=== PATIENT | male | born 1965 | race Caucasian/White ===

== ENCOUNTER 2021-04-14 15:40 | Outpatient (CLI) | payer SELFPAY ==
[2021-04-14 16:00] VITALS: BP 128/75; PULSE 107; RESP 22; TEMP 38.8; O2SAT 87
--- NOTE | 2021-04-14 16:10 | NURSING ---
[facility] 1555. Pt noted to have O2 sats .86-87% w/ tachypnea. Lungs clear, diminished. Nina Prado NP contacted and updated on O2 sats and told to take pt to ED as he is no longer candidate for infusion. Pt verbalizes understanding.
== END 2021-04-14 16:12 | disposition home or self-care (01) ==
LOC: ICUOUT 15:41 → MS2 15:41
PROVIDERS: Referring Provider Nurse Practitioner Acute Care; Visit Provider Nurse Practitioner Acute Care
DX: Z23 Encounter for immunization (principal); U07.1 COVID-19
CPT/HCPCS: Q0244

== ENCOUNTER 2021-04-14 16:29 | Inpatient (IN) | payer BC, SELFPAY ==
[2021-04-14] VITALS (14 sets, daily range): BP systolic 106–145; BP diastolic 37–96; PULSE 103–110; RESP 16–24; TEMP 36.4–39.1; O2SAT 85–95; BMI 44.0; BMI 44.8
--- NOTE | 2021-04-14 18:13 | EKG12_ITS ---
Test Reason : SOB Blood Pressure : / mmHG Vent. Rate : 104 BPM Atrial Rate : 104 BPM P-R Int : 140 ms QRS Dur : 086 ms QT Int : 318 ms P-R-T Axes : 065 085 041 degrees QTc Int : 418 ms Sinus tachycardia Incomplete right bundle branch block Confirmed by KEL YOON, MONIKA ([id number]), paving rammer JOSE RYDER ([id number]) on 04/16/2021 9:13:13 AM Referred By: NEVA Confirmed By:MONIKA BEGUM MD
--- NOTE | 2021-04-14 18:16 | ED.VIS.DYS ---
HPI History of Present Illness Chief Complaint: Shortness of Breath Informant: patient Narrative Narrative: Patient is a 55-year-old male with history of diabetes mellitus and hypothyroid as well as hyperlipidemia presenting with hypoxia. Patient was diagnosed with COVID-19 infection on 04/10. He started having symptoms on 04/05. He went to receive monoclonal antibody infusion today but was hypoxic so he was sent to the emergency room. Patient continues to have cough and states food all tastes like salt and he is more thirsty. He denies any shortness of breath. He denies any nausea or vomiting. He did not have the Covid vaccine. He is not on any blood thinners. He denies any other complaints at this time. [facility] Medical History (Updated 04/15/21 @ 00:[address] Nila Jeffries DO) Diabetes Hyperlipidemia Hypertension Hypothyroidism Home Medications aspirin 81 mg PO DAILY@0800 01/06/16 [History Last Taken Unknown] levothyroxine 50 mcg PO DAILY 01/06/16 [History Last Taken 04/06/16 05:30 50 MCG] metformin 1,000 mg PO DAILY 01/06/16 [History Last Taken Unknown] metformin 500 mg PO QHS 01/06/16 [History Last Taken Unknown] multivitamin [Daily Multiple Vitamin] 1 ea PO DAILY 01/06/16 [History Last Taken Unknown] pravastatin 40 mg PO DAILY 01/06/16 [History Last Taken Unknown] metoprolol tartrate 50 mg PO BID 04/02/16 [History Last Taken 04/06/16 05:30 50 MG] Allergy/AdvReac Type Severity Reaction Status Date / Time No Known Allergies Allergy Verified 04/14/21 16:34 Family History (Updated 04/14/21 @ 21:56 by Elsie Toure NP-Narda) Other Diabetes Hypertension Surgical History History of coronary artery bypass graft History of tonsillectomy Social History (Updated 04/14/21 @ 21:57 by Elsie Toure NP-C) Smoking Status: Never smoker alcohol intake: never substance use type: does not use ROS ROS ED Constitutional Constitutional ED: Denies chills or fever(s) Eyes Eyes: Denies blurry vision or loss of vision ENT ENT ED: Reports other Details: Change in taste ; Denies rhinorrhea Cardiovascular Cardiovascular: Denies chest pain or dizziness Respiratory/Chest Respiratory/Chest: Reports cough and dyspnea on exertion; Denies dyspnea Gastrointestinal Gastrointestinal: Denies abdominal pain, nausea or vomiting Genitourinary Genitourinary ED: Denies dysuria or hematuria Musculoskeletal Musculoskeletal: Denies arthralgias or myalgias Integumentary Denies rash or wounds Neurologic Neurologic: Denies focal weakness or headache(s) Psychiatric Psychiatric: Denies anxiety or behavioral changes EXAM Physical Exam Const Vital Signs: 04/14/21 16:30 04/14/21 16:34 04/14/21 17:32 Temperature 98.8 F Temperature Source Temporal Pulse Rate 106 H 105 H Respiratory Rate 16 20 H Respiratory Effort Short of Breath Labored Accessory Muscle Use Respiratory Depth Normal Respiratory Pattern Tachypnea Blood Pressure 123/78 H Blood Pressure Mean 93 Pulse Ox 85 94 87 Oxygen Delivery Method Room Air Nasal Cannula Nasal Cannula Oxygen Flow Rate (L/min) 2 2 04/14/21 18:20 04/14/21 20:31 04/14/21 21:35 Temperature 97.6 F L 98.3 F Temperature Source Temporal Temporal Pulse Rate 108 H 104 H Respiratory Rate 20 H 20 H Respiratory Effort Respiratory Depth Respiratory Pattern Blood Pressure 145/88 H 138/84 H Blood Pressure Mean 107 102 Pulse Ox 91 95 90 Oxygen Delivery Method Nasal Cannula Nasal Cannula Nasal Cannula Oxygen Flow Rate (L/min) 6 6 4 04/14/21 21:36 04/14/21 21:38 Temperature Temperature Source Pulse Rate Respiratory Rate Respiratory Effort Respiratory Depth Respiratory Pattern Blood Pressure Blood Pressure Mean Pulse Ox 87 94 Oxygen Delivery Method Nasal Cannula Nasal Cannula Oxygen Flow Rate (L/min) 6 6 Positive well nourished, well developed and obese General Appearance ED: well developed Nutritional Appearance: obese HEENT Reports TM's clear and dry mucous membranes atraumatic Tympanic Membrane ED: Yes TM's clear Mouth ED: Yes dry mucous membranes Mouth: dry mucous membranes Eyes PERRL and EOMs intact bilaterally Neck no lymphadenopathy, supple and no JVD Resp normal respiratory effort Auscultation: diminished lung sounds Cardio regular rate, regular rhythm and no murmurs GI non-tender and non-distended Auscultation: normoactive bowel sounds Palpation: soft Back/Spine normal to inspection Extremity normal to inspection General Extremety ED: Negative for edema or tenderness General Extremity: Negative for edema Neuro oriented x3 and no sensory deficits noted Sensorium / Orientation: alert Motor Exam: Negative for general weakness Psych mental status grossly normal Skin Lesions: no lesions Rashes: no rashes MDM MDM MDM Narrative Medical decision making narrative: Patient evaluated for hypoxia when he was due to receive monoclonal antibody infusion. Patient denies any other significant complaints at this time. He is requiring supplemental oxygen in the ER does have increased O2 demands while in the ER. He is a leukopenia which has been consistent with a viral infection. His D-dimer is elevated and CTA shows no PE but findings consistent with COVID-19 pneumonia. As patient had 2 high oxygen demands to be a candidate for home O2 he will be admitted. Patient is agreeable to this plan of care. He was given first dose of Decadron in the emergency room. Lab Data Attestation: I reviewed the patient's lab results. Labs: Laboratory Results - last 24 hr 04/14/21 04/14/21 04/14/21 17:20 17:20 17:20 WBC 3.8 L RBC 6.14 Hgb 16.6 H Hct 51.4 MCV 83.7 MCH 27.0 MCHC 32.3 RDW Std Deviation 50.0 H RDW Coeff of Renato 17.3 H Plt Count 154 MPV 10.9 Immature Gran % (Auto) 0.300 Neut % (Auto) 75.1 H Lymph % (Auto) 17.2 L Woodward % (Auto) 7.1 Eos % (Auto) 0.0 Baso % (Auto) 0.3 Absolute Neuts (auto) 2.9 Absolute Lymphs (auto) 0.65 L Nucleated RBC % 0 D-Dimer Quant (PE/DVT) 0.82 H* Sodium 134 L Potassium 3.8 Chloride 101 Carbon Dioxide 29.0 Anion Gap 4 L BUN 13 Creatinine 0.94 Estim Creat Clear Calc 91.68 Est GFR (MDRD) Af Amer 107 Est GFR (MDRD) Non-Af 89 BUN/Creatinine Ratio 13.9 Glucose 261 H Lactic Acid Calcium 8.4 L Total Bilirubin 0.50 AST 33 ALT 33 Alkaline Phosphatase 104 Total Protein 7.2 Albumin 2.4 L Globulin 4.8 H Albumin/Globulin Ratio 0.5 L Procalcitonin 04/14/21 04/14/21 17:20 17:20 WBC RBC Hgb Hct MCV MCH MCHC RDW Std Deviation RDW Coeff of Renato Plt Count MPV Immature Gran % (Auto) Neut % (Auto) Lymph % (Auto) Woodward % (Auto) Eos % (Auto) Baso % (Auto) Absolute Neuts (auto) Absolute Lymphs (auto) Nucleated RBC % D-Dimer Quant (PE/DVT) Sodium Potassium Chloride Carbon Dioxide Anion Gap BUN Creatinine Estim Creat Clear Calc Est GFR (MDRD) Af Amer Est GFR (MDRD) Non-Af BUN/Creatinine Ratio Glucose Lactic Acid 1.3 Calcium Total Bilirubin AST ALT Alkaline Phosphatase Total Protein Albumin Globulin Albumin/Globulin Ratio Procalcitonin 0.13 H Radiography Diagnostic Testing: Radiology Impression Chest CTA 04/14/21 18:48 IMPRESSION: 1. No evidence of pulmonary embolus. 2. No aortic dissection or aneurysm. 3. Evidence of CABG procedure without cardiomegaly. 4. Patchy groundglass pulmonary infiltrates consistent with COVID pneumonia. 5. Splenomegaly. 6. LAP-BAND procedure. Electronically Signed: Marcelo Sales DO at 20:13 EDT Tel [phone], Service support , Rhythm Strip Rhythm Strip: Sinus Tach Rate: 104 Ectopy: None EKG Initial EKG: Attestation: I personally reviewed and interpreted this EKG as follows: Interpretation: Sinus Rhythm Comments: Sinus tachycardia rate of 104 Subtle right axis Normal intervals Normal ST segments Discharge Plan Triage Chief Complaint: Shortness of Breath ED Provider: Nila Jeffries Dx/Rx/DC Orders Clinical Impression: COVID-19, Acute respiratory failure with hypoxia Primary Care Provider: Benedict Kamara Disposition Disposition: Acute Care Hospital [facility] Discharge Date/Time: 04/14/21 22:18
[2021-04-14 18:31] LABS: Absolute Lymphocyte Count 0.65 X10^3/uL (0.83-4.51); Absolute Neutrophil Count 2.9 X10^3/uL (2.0-7.7); Basophil# 0.01 X10^3/uL; Basophil% 0.3 % (0-1); Hematocrit 51.4 % (40-54); Hemoglobin 16.6 g/dL (13.0-16.5); Lymphocyte # 0.65 X10^3/ul (0.83-4.51); Lymphocyte % 17.2 % (19-41); Mean Corp Hgb Conc 32.3 g/dL (32-36); Mean Corpuscular Volume 83.7 fL (80-94); Mean Platelet Vol. 10.9 fl (6.2-12.0); Monocyte# 0.27 X10^3/uL; Monocyte% 7.1 % (0-10); NRBC Flagged by Analyzer 0 % (0-5); Neutrophil # 2.85 X10^3/uL (2.7-7.7); Neutrophil % 75.1 % (47-70); Platelet Count 154 K/mm3 (150-450); RBC Distribution Width CV 17.3 % (11.6-14.6); Red Blood Count 6.14 M/mm3 (4.6-6.2); White Blood Count 3.8 K/mm3 (4.4-11.0)
[2021-04-14 18:41] LABS: ALB/GLOB Ratio 0.5 RATIO (0.9-2.4); AST(SGOT) 33 U/L (15-37); Alanine Aminotransfer ALT/SGPT 33 U/L (16-61); Albumin, Serum 2.4 g/dL (3.2-5.0); Alkaline Phosphatase 104 U/L (45-117); Anion Gap 4 (5-15); BUN 13 mg/dL (7-18); BUN/Creat Ratio 13.9 RATIO (10-20); Calcium,Total 8.4 mg/dL (8.5-10.1); Chloride 101 mmol/L (98-107); Creatinine, Serum 0.94 mg/dL (0.70-1.30); EST Glomerular Filtration Rate 89 mL/min (>60); Est Glom Filt Rate - Afr Amer 107 mL/min (>60); Estimated Creatinine Clearance 91.68 ml/min; Globulin 4.8 g/dL (2.2-4.2); Glucose 261 mg/dL (74-106); Potassium 3.8 mmol/L (3.5-5.1); Protein, Total 7.2 g/dL (6.4-8.2); Sodium Level 134 mmol/L (136-145)
[2021-04-14 18:42] LABS: D-Dimer Quantitative (DVT/PE) 0.82 FEU/ug/m (0.27-0.49)
--- NOTE | 2021-04-14 18:48 | CT_ITS ---
STUDY: CTA CHEST REASON FOR EXAM: Male, 55 years old. Hypoxia. Elevated d-dimer. COVID positive. RADIATION DOSAGE (If Supplied By Facility): CTDIvol = ( 29.29 ) mGy, DLP = ( 562.02 ) mGycm TECHNIQUE: The examination was performed with the intravenous administration of IV 100mL Isovue-370. Post-processing of the angiographic images was performed, with multiplanar reformation and 3D reconstruction. Individualized dose optimization techniques were used for this CT. COMPARISON: None. FINDINGS: Normal enhancement of the main pulmonary artery and right and left pulmonary arteries. Normal enhancement of the bilateral peripheral pulmonary arteries. There is no demonstrated pulmonary embolism. Normal thoracic aorta and visualized great vessels. There is no demonstrated aortic dissection. No evidence of CABG procedure. The heart is normal in size. Nonspecific subcentimeter mediastinal lymphadenopathy. Normal hilar regions. Normal visualized trachea and bronchi. The lungs are well expanded. Diffuse groundglass pulmonary infiltrates without consolidation or solid mass. Normal pleura. No evidence of median sternotomy. The chest wall is otherwise unremarkable. Normal osseous structures. Question splenomegaly. There is evidence of a lap band procedure proximal stomach. CT/CTA Chest W/WO Contrast IMPRESSION: 1. No evidence of pulmonary embolus. 2. No aortic dissection or aneurysm. 3. Evidence of CABG procedure without cardiomegaly. 4. Patchy groundglass pulmonary infiltrates consistent with COVID pneumonia. 5. Splenomegaly. 6. LAP-BAND procedure. Electronically Signed: Marcelo Sales DO at 20:13 EDT Tel [phone], Service support ,
[2021-04-14 18:49] LABS: Lactic Acid 1.3 mmol/L (0.4-1.9)
[2021-04-14 19:13] LABS: Procalcitonin 0.13 ng/mL (0.00-0.09)
--- NOTE | 2021-04-14 21:53 | HP.PCM_ITS ---
Documented by User: ADELINE Stanford 04/14/21 22:05 HPI - General General Date of Admission: 04/14/21 Date of Service: 04/14/21 Chief Complaint: Shortness of breath HPI Narrative MONIKA MERLOS, is a 55 M who presents with complaints of shortness of breath. Patient states that he was diagnosed with COVID-19 on 04/10 but with became symptomatic on 04/05. Patient was scheduled to receive monoclonal antibody in fusion earlier today but was sent to the ER for hypoxia. Patient states that he did not receive the Covid vaccine. Patient states that he also has altered taste and everything tastes salty and he has had an increased thirst. Patient denies fever, chills, chest pain, nausea, vomiting. [facility] Medical History (Updated 04/15/21 @ 00:[address] Nila Jeffries, ) Diabetes Hyperlipidemia Hypertension Hypothyroidism Home Medications aspirin 81 mg PO DAILY@0800 01/06/16 [History Last Taken Unknown] levothyroxine 50 mcg PO DAILY 01/06/16 [History Last Taken 04/06/16 05:30 50 MCG] metformin 1,000 mg PO DAILY 01/06/16 [History Last Taken Unknown] metformin 500 mg PO QHS 01/06/16 [History Last Taken Unknown] multivitamin [Daily Multiple Vitamin] 1 ea PO DAILY 01/06/16 [History Last Taken Unknown] pravastatin 40 mg PO DAILY 01/06/16 [History Last Taken Unknown] metoprolol tartrate 50 mg PO BID 04/02/16 [History Last Taken 04/06/16 05:30 50 MG] Allergy/AdvReac Type Severity Reaction Status Date / Time No Known Allergies Allergy Verified 04/14/21 16:34 Family History (Updated 04/14/21 @ 21:56 by ADELINE Stanford) Other Diabetes Hypertension Surgical History History of coronary artery bypass graft History of tonsillectomy Social History (Updated 04/14/21 @ 21:57 by ADELINE Stanford) Smoking Status: Never smoker alcohol intake: never substance use type: does not use ROS Constitutional Constitutional: Denies anorexia, chills, fatigue, fever(s) or weakness ENT HEENT: Reports loss taste/smell Cardiovascular Cardiovascular: Denies chest pain, edema or palpitations Respiratory/Chest Respiratory/Chest: Reports cough, shortness of breath at rest, shortness of breath with exertion, tachypnea and wheezing Gastrointestinal Gastrointestinal: Denies abdominal pain, constipation, diarrhea, nausea or vomiting Genitourinary Genitourinary: Denies dysuria Musculoskeletal Musculoskeletal: Denies back pain, extremity pain, joint pain or joint stiffness Integumentary Integumentary: Denies dry skin Neurologic Neurologic: Denies abnormal gait, abnormal speech, confusion, dizziness or focal weakness Psychiatric Psychiatric: Denies anxiety or depression Endocrine Endocrinology: Denies change in body appearance Hematologic/Lymphatic Hematologic/Lymphatic: Denies anemia, easy bleeding or easy bruising Vital Signs Vital Signs Vital Signs: 04/14/21 16:30 04/14/21 16:34 04/14/21 17:32 Temperature 98.8 F Temperature Source Temporal Pulse Rate 106 H 105 H Respiratory Rate 16 20 H Respiratory Effort Short of Breath Labored Accessory Muscle Use Respiratory Depth Normal Respiratory Pattern Tachypnea Blood Pressure 123/78 H Blood Pressure Mean 93 Pulse Ox 85 94 87 Oxygen Delivery Method Room Air Nasal Cannula Nasal Cannula Oxygen Flow Rate (L/min) 2 2 04/14/21 18:20 04/14/21 20:31 04/14/21 21:35 Temperature 97.6 F L 98.3 F Temperature Source Temporal Temporal Pulse Rate 108 H 104 H Respiratory Rate 20 H 20 H Respiratory Effort Respiratory Depth Respiratory Pattern Blood Pressure 145/88 H 138/84 H Blood Pressure Mean 107 102 Pulse Ox 91 95 90 Oxygen Delivery Method Nasal Cannula Nasal Cannula Nasal Cannula Oxygen Flow Rate (L/min) 6 6 4 04/14/21 21:36 04/14/21 21:38 Temperature Temperature Source Pulse Rate Respiratory Rate Respiratory Effort Respiratory Depth Respiratory Pattern Blood Pressure Blood Pressure Mean Pulse Ox 87 94 Oxygen Delivery Method Nasal Cannula Nasal Cannula Oxygen Flow Rate (L/min) 6 6 Weight Weight: 307 lb Body Mass Index (BMI) 44.0 Physical Exam Const alert, oriented x3 and no apparent distress General Appearance: cooperative HEENT normocephalic and head/scalp atraumatic Eyes conjunctivae normal and no scleral icterus Neck supple and no JVD General: trachea midline Resp Resp Narrative: Patient currently on 6 L nasal cannula oxygen, no oxygen use prior Effort and Inspection: tachypneic Auscultation: wheezes scattered wheezes and diminished lung sounds bilateral throughout Cardio regular rate, regular rhythm, S1 normal heart sound, S2 normal heart sound and peripheral pulses 2+ throughout Rate: tachycardic GI normal to inspection, nondistended, normoactive bowel sounds and soft to palpation Extremity normal capillary refill and no clubbing, cyanosis or edema General Extremity: no tenderness to palpation of joints or extremities Skin General Skin Exam: no breakdown and turgor normal Lesions: no lesions Rashes: no rashes Neuro no focal motor deficits and no sensory deficits noted Speech: speech normal Motor Exam: Negative for general weakness Psych thought process normal, cooperative and affect normal Appearance: appropriate Results Lab / Micro Data Result Diagrams: 04/14/21 17:20 04/14/21 17:20 Labs: Laboratory Results - last 24 hr 04/14/21 17:20: WBC 3.8 L, RBC 6.14, Hgb 16.6 H, Hct 51.4, MCV 83.7, MCH 27.0, MCHC 32.3, RDW Std Deviation 50.0 H, RDW Coeff of Renato 17.3 H, Plt Count 154, MPV 10.9, Immature Gran % (Auto) 0.300, Neut % (Auto) 75.1 H, Lymph % (Auto) 17.2 L, Love % (Auto) 7.1, Eos % (Auto) 0.0, Baso % (Auto) 0.3, Absolute Neuts (auto) 2.9, Absolute Lymphs (auto) 0.65 L, Nucleated RBC % 0 04/14/21 17:20: D-Dimer Quant (PE/DVT) 0.82 H* 04/14/21 17:20: Sodium 134 L, Potassium 3.8, Chloride 101, Carbon Dioxide 29.0, Anion Gap 4 L, BUN 13, Creatinine 0.94, Estim Creat Clear Calc 91.68, Est GFR (MDRD) Af Amer 107, Est GFR (MDRD) Non-Af 89, BUN/Creatinine Ratio 13.9, Glucose 261 H, Calcium 8.4 L, Total Bilirubin 0.50, AST 33, ALT 33, Alkaline Phosphatase 104, Total Protein 7.2, Albumin 2.4 L, Globulin 4.8 H, Albumin/Globulin Ratio 0.5 L 04/14/21 17:20: Lactic Acid 1.3 04/14/21 17:20: Procalcitonin 0.13 H Radiology Impression Chest CTA 04/14/21 18:48 IMPRESSION: 1. No evidence of pulmonary embolus. 2. No aortic dissection or aneurysm. 3. Evidence of CABG procedure without cardiomegaly. 4. Patchy groundglass pulmonary infiltrates consistent with COVID pneumonia. 5. Splenomegaly. 6. LAP-BAND procedure. Electronically Signed: Marcelo Sales DO at 20:13 EDT Tel [phone], Service support , Assessment & Plan Assessment/Plan (1) COVID-19: PLAN: 1. COVID-19 pneumonia -Admit to PCU for cardiac and pulse ox monitoring -Encourage incentive spirometry -CBC and BMP ordered daily -P.o. Decadron ordered 2. Elevated D-dimer -CTA chest completed, negative for PE 3. Hypertension -Vital signs stable -Continue metoprolol -Vital signs per protocol 4. Diabetes mellitus type 2 -Will hold Metformin at this time -AC at bedtime blood sugars with sliding scale insulin ordered -Hypoglycemia protocol ordered 5. Hypothyroidism -Continue levothyroxine DVT prophylaxis-subcu Lovenox This patient was seen by ANNELISE StanfordC under the supervision of Dr. Rehman. Documented by User: Dr. Torsten Rehman MD 04/15/21 04:20 HPI - General General Date of Admission: 04/14/21 [facility] Medical History (Updated 04/15/21 @ 00:[address] Nila Jeffries DO) Diabetes Hyperlipidemia Hypertension Hypothyroidism Home Medications aspirin 81 mg PO DAILY@0800 01/06/16 [History Last Taken Unknown] levothyroxine 50 mcg PO DAILY 01/06/16 [History Last Taken 04/06/16 05:30 50 MCG] metformin 1,000 mg PO DAILY 01/06/16 [History Last Taken Unknown] metformin 500 mg PO QHS 01/06/16 [History Last Taken Unknown] multivitamin [Daily Multiple Vitamin] 1 ea PO DAILY 01/06/16 [History Last Taken Unknown] pravastatin 40 mg PO DAILY 01/06/16 [History Last Taken Unknown] metoprolol tartrate 50 mg PO BID 04/02/16 [History Last Taken 04/06/16 05:30 50 MG] Allergy/AdvReac Type Severity Reaction Status Date / Time No Known Allergies Allergy Verified 04/14/21 16:34 Family History (Updated 04/14/21 @ 21:56 by Elsie Toure NP-C) Other Diabetes Hypertension Surgical History History of coronary artery bypass graft History of tonsillectomy Social History (Updated 04/14/21 @ 21:57 by Elsie Toure NP-C) Smoking Status: Never smoker alcohol intake: never substance use type: does not use Results Lab / Micro Data Result Diagrams: 04/14/21 17:20 04/14/21 17:20 Assessment & Plan Assessment/Plan (1) COVID-19: (2) Acute respiratory failure with hypoxia: Charges/Coding Addendum Addendum: Dr. Rehman: I personally reviewed the chart and examined the patient, and agree with the above findings. 55-year-old male who presents with 10 to 11 days of symptoms consistent with COVID-19. He did test positive and was scheduled to receive the monoclonal antibody today however he was found to be hypoxic and was sent to the ER since he no longer qualified. In the ER he was found to be 87% on room air and initially required 2 L. By the time I evaluated him he was up to needing 5 to 6 L nasal cannula maintaining oxygen saturations. He states that he is u nvaccinated. His and son are both vaccinated and knows his who actually has Covid, and is doing fine, and gave it to him. Also discussed with him for 20 minutes CODE STATUS as well as potential need for intubation if it would arise. And he states that he would like to be full code at this time and if he needs to be intubated he would like to be intubated. He is also going up from remdesivir, will continue with Decadron. CTA of his chest was negative for PEs. Visit Charges Inpatient E&M: 51593 Init Hosp L3 Procedures Hospitalists Procedures: 41405 Advncd Care Plan 30 Min
[2021-04-14] MEDS: dexAMETHasone 4 MG Tablet 6 MG PO (22:03)
--- NOTE | 2021-04-14 22:08 | PCS.PANDOC ---
PANDEMIC DOCUMENTATION INITIATED: Date: 03/23/2021 Time: 190
[2021-04-15] VITALS (13 sets, daily range): BP systolic 102–138; BP diastolic 56–84; PULSE 71–103; RESP 16–18; TEMP 36.6–37.5; O2SAT 89–94
[2021-04-15 00:11] LABS: Bedside Glucose 227 mg/dL (70-110)
[2021-04-15] MEDS: MELATONIN 3 MG TABLET PO (01:19)
[2021-04-15] MEDS: Enoxaparin 40 MG/0.4 ML Syringe SC ×3 (01:19→22:34)
[2021-04-15] MEDS: Insulin NPH Human 100 UNITS/ML PEN 10 UNITS SC ×2 (01:20→22:38)
[2021-04-15] MEDS: Acetaminophen 325 MG Tablet 650 MG PO (01:20)
[2021-04-15 08:01] LABS: Anion Gap 7 (5-15); BUN 18 mg/dL (7-18); BUN/Creat Ratio 16.7 RATIO (10-20); Calcium,Total 8.2 mg/dL (8.5-10.1); Chloride 100 mmol/L (98-107); Creatinine, Serum 1.08 mg/dL (0.70-1.30); EST Glomerular Filtration Rate 75 mL/min (>60); Est Glom Filt Rate - Afr Amer 91 mL/min (>60); Glucose 362 mg/dL (74-106); Potassium 4.4 mmol/L (3.5-5.1); Sodium Level 133 mmol/L (136-145)
[2021-04-15 08:09] LABS: Absolute Lymphocyte Count 0.21 X10^3/uL (0.83-4.51); Hematocrit 52.3 % (40-54); Hemoglobin 16.2 g/dL (13.0-16.5); Lymphocyte # 0.21 X10^3/ul (0.83-4.51); Lymphocyte % 6.3 % (19-41); Mean Corpuscular Hgb 27.2 pg (27.0-32.0); Mean Corpuscular Volume 87.8 fL (80-94); Mean Platelet Vol. 9.9 fl (6.2-12.0); Monocyte# 0.11 X10^3/uL; Monocyte% 3.3 % (0-10); NRBC Flagged by Analyzer 0 % (0-5); Neutrophil # 3.01 X10^3/uL (2.7-7.7); Neutrophil % 89.8 % (47-70); POSITIVE DIFFERENTIAL YES; Platelet Count 135 K/mm3 (150-450); RBC Distribution Width SD 54.1 fl (35.1-43.9); Red Blood Count 5.96 M/mm3 (4.6-6.2); White Blood Count 3.4 K/mm3 (4.4-11.0)
[2021-04-15 08:13] LABS: Differential Indicated SCAN CRITERIA MET
[2021-04-15] MEDS: Aspirin 81 MG TAB.CHEW PO (08:45)
[2021-04-15] MEDS: Metoprolol Tartrate 50 MG Tablet PO ×2 (08:45→22:33)
[2021-04-15] MEDS: Multivitamins,Therapeutic Tablet 1 TABLET PO (08:45)
[2021-04-15] MEDS: dexAMETHasone 2 MG TABLET 6 MG PO (08:45)
[2021-04-15] MEDS: Levothyroxine 50 MCG Tablet PO (08:45)
[2021-04-15] MEDS: Insulin Lispro 100 UNIT/ML INSULN.PEN SC ×5 (08:46→22:38)
[2021-04-15 09:06] LABS: Bedside Glucose 340 mg/dL (70-110)
--- NOTE | 2021-04-15 11:45 | CASEMGMT ---
RN MIGUEL ANGEL Face to Face with patient for initial transition planning/care coordination assessment. RN CM introduced self and role at [facility]. Patient sitting in chair, alert and oriented. Patient willing to participate in assessment and is able to answer all questions appropriately. Care providers, pharmacy, and demographics verified. Patient wishes to discharge home, denies need for home health at this time. Patient states he has no further needs or concerns at this time. CM to follow for discharge planning needs that may arise. PCP: Anh Specialists: none Preferred Pharmacy: [facility] retail at discharge. Insurance: [employer] Prescription Benefit: yes Living Will/HPOA: none LNOK: son, significant other Living Arrangements: Patient lives with significant other and son in a single story home with 2 steps and railing to enter the home. Patient states he is independent at home. Family has been isolating at home, significant other is covid positive. Transportation: self, sig other, son DME/HHC: Patient denies DME or previous HHC. Patient was provided a list of HHC providers consistent with the patient?s preferred geographic region, medical needs, and insurance network. The patient?s preferred provider is [facility]. Will montior for need for home oxygen. Patient states he had his covid testing completed at [facility]. Disposition Plan: Patient to discharge home with family support and follow-up plans in place. Viki TADEO, RN, CM
[2021-04-15 13:31] LABS: Bedside Glucose 499 mg/dL (70-110)
--- NOTE | 2021-04-15 14:07 | PN.HOSP_ITS ---
Subjective Subjective Patient seen and examined. He was admitted with a complaint of shortness of breath. He is being managed for acute hypoxic respiratory failure due to COVID 19 infection; he became symptomatic on 04/05/2021 and diagnosed on 04/10/2021/ He has not received the covid vaccine. Patient seen and examined. He still remains short of breath. He was on 6L of oxygen by nasal canula. Review of systems otherwise negative. Objective Data Objective Data Vital Signs: Vital Signs Temp Pulse Resp BP Pulse Ox 98.4 F 71 16 112/69 94 04/15/21 11:37 04/15/21 11:37 04/15/21 11:37 04/15/21 11:37 04/15/21 11:37 Oxygen Flow Rate (L/min) 6 Oxygen Delivery Method Nasal Cannula Weight: 312 lb 6.32 oz Body Mass Index (BMI) 44.8 Intake & Output: Intake and Output for Last 24 Hours 04/13/21 04/14/21 04/15/21 23:59 23:59 23:59 Intake Total 750 / 750 240 / 240 Output Total 2 / 2 Balance 750 / 750 238 / 238 Lab / Micro Data Result Diagrams: 04/15/21 07:14 04/15/21 07:14 Labs: Laboratory Results - last 24 hr 04/14/21 17:20: WBC 3.8 L, RBC 6.14, Hgb 16.6 H, Hct 51.4, MCV 83.7, MCH 27.0, MCHC 32.3, RDW Std Deviation 50.0 H, RDW Coeff of Renato 17.3 H, Plt Count 154, MPV 10.9, Immature Gran % (Auto) 0.300, Neut % (Auto) 75.1 H, Lymph % (Auto) 17.2 L, [place] % (Auto) 7.1, Eos % (Auto) 0.0, Baso % (Auto) 0.3, Absolute Neuts (auto) 2.9, Absolute Lymphs (auto) 0.65 L, Nucleated RBC % 0 04/14/21 17:20: D-Dimer Quant (PE/DVT) 0.82 H* 04/14/21 17:20: Sodium 134 L, Potassium 3.8, Chloride 101, Carbon Dioxide 29.0, Anion Gap 4 L, BUN 13, Creatinine 0.94, Estim Creat Clear Calc 91.68, Est GFR (MDRD) Af Amer 107, Est GFR (MDRD) Non-Af 89, BUN/Creatinine Ratio 13.9, Glucose 261 H, Calcium 8.4 L, Total Bilirubin 0.50, AST 33, ALT 33, Alkaline Phosphatase 104, Total Protein 7.2, Albumin 2.4 L, Globulin 4.8 H, Albumin/Globulin Ratio 0.5 L 04/14/21 17:20: Lactic Acid 1.3 04/14/21 17:20: Procalcitonin 0.13 H 04/14/21 23:22: POC Glucose 227 H 04/15/21 07:14: WBC 3.4 L, RBC 5.96, Hgb 16.2, Hct 52.3, MCV 87.8, MCH 27.2, MCHC 31.0 L, RDW Std Deviation 54.1 H, RDW Coeff of Renato 17.0 H, Plt Count 135 L, MPV 9.9, Immature Gran % (Auto) 0.600, Neut % (Auto) 89.8 H, Lymph % (Auto) 6.3 L, [place] % (Auto) 3.3, Eos % (Auto) 0.0, Baso % (Auto) 0.0, Absolute Neuts (auto) 3.0, Absolute Lymphs (auto) 0.21 L, Nucleated RBC % 0, Differential Comment COMMENT, Diff Path Review December04/15/21 07:14: Sodium 133 L, Potassium 4.4, Chloride 100, Carbon Dioxide 26.0, Anion Gap 7, BUN 18, Creatinine 1.08, Estim Creat Clear Calc 79.80, Est GFR (MDRD) Af Amer 91, Est GFR (MDRD) Non-Af 75, BUN/Creatinine Ratio 16.7, Glucose 362 H, Calcium 8.2 L 04/15/21 08:26: POC Glucose 340 H 04/15/21 11:40: POC Glucose 499 H* Radiography Diagnostic Testing: Radiology Impression Chest CTA 04/14/21 18:48 IMPRESSION: 1. No evidence of pulmonary embolus. 2. No aortic dissection or aneurysm. 3. Evidence of CABG procedure without cardiomegaly. 4. Patchy groundglass pulmonary infiltrates consistent with COVID pneumonia. 5. Splenomegaly. 6. LAP-BAND procedure. Electronically Signed: Marcelo Sales DO at 20:13 EDT Tel [phone], Service support , Rhythm Strip Rhythm Strip: Sinus Tach Rate: 104 Ectopy: None Physical Exam Const alert, oriented x3 and no apparent distress Exam Limitations: no limitations Nutritional Appearance: morbidly obese HEENT head/scalp atraumatic and moist oral mucous membranes Head and Scalp: normocephalic Eyes EOMs intact bilaterally and conjunctivae normal Neck no lymphadenopathy, supple and no JVD Resp Resp Narrative: diminished breath sounds bibasally, no wheezes or crackles. On 6L of oxygen. Cardio regular rate, regular rhythm, S1 normal heart sound, S2 normal heart sound and no murmurs GI normal to inspection, nondistended, normoactive bowel sounds, soft to palpation, non-tender and non-distended Extremity normal to inspection, full ROM and no clubbing, cyanosis or edema Peripheral Pulses: Yes pulses 2+ throughout Skin no rashes or lesions noted Neuro oriented x3, CN's II-XII intact bilaterally and moves all extremities Sensorium / Orientation: awake and alert Psych affect normal Assessment & Plan Assessment/Plan (1) Acute respiratory failure with hypoxia: (2) COVID-19: PLAN: #Acute hypoxic respiratory failure due to COVID 19 infection * on 6L of oxygen by nasal canula * on decadron and remdesivir * on breathing treatment with bronchodilators * titrate oxygen to maintain sats >90% * #Elevated D dimer: CTA negative for PE. #Hypertension * on metoprolol. IV hydralazine prn * #Diabetes mellitus * metformin on hold. ISS. Accuchecks ACHS * #Hypothyroidism; on synthroid #History of ZOEY * says he has been told he has sleep apnea, but he doesnt use any CPAP * will need to follow up with pulmonology on outpatient basis * DVT prophylaxis: 40mg bid Charges/Coding Visit Charges Inpatient E&M: 85196 [facility] Hosp L3
[2021-04-15 14:45] LABS: Bedside Glucose > 500 mg/dL (70-110)
[2021-04-15 17:01] LABS: Bedside Glucose 388 mg/dL (70-110)
[2021-04-15] MEDS: Pravastatin 40 MG Tablet PO (22:33)
[2021-04-15] MEDS: 0.9% Saline Lock 10 ML Syringe IV (22:43)
[2021-04-15 23:01] LABS: Bedside Glucose 311 mg/dL (70-110)
[2021-04-16] VITALS (14 sets, daily range): BP systolic 96–155; BP diastolic 47–96; PULSE 78–119; RESP 18–20; TEMP 36.8–38.1; O2SAT 90–93
[2021-04-16] MEDS: Levothyroxine 50 MCG Tablet PO (09:24)
[2021-04-16] MEDS: Aspirin 81 MG TAB.CHEW PO (09:24)
[2021-04-16] MEDS: Metoprolol Tartrate 50 MG Tablet PO ×2 (09:24→22:59)
[2021-04-16] MEDS: Multivitamins,Therapeutic Tablet 1 TABLET PO (09:24)
[2021-04-16] MEDS: dexAMETHasone 2 MG TABLET 6 MG PO (09:24)
[2021-04-16] MEDS: Enoxaparin 40 MG/0.4 ML Syringe SC ×2 (09:25→22:59)
[2021-04-16] MEDS: Acetaminophen 325 MG Tablet 650 MG PO ×2 (09:26→23:02)
[2021-04-16] MEDS: Insulin Lispro 100 UNIT/ML INSULN.PEN SC ×4 (09:29→22:59)
[2021-04-16 10:21] LABS: Bedside Glucose 269 mg/dL (70-110)
--- NOTE | 2021-04-16 11:39 | PN.HOSP_ITS ---
Subjective Subjective Patient seen and examined. He had no complaints today and felt his breathing was the same. He was still coughing. Review of systems otherwise negative. I was subsequently informed by the nurse that patient saturation went down to the 80s and he required increasing amounts of oxygen up to 14 L. He was mildly ta chypneic today and also had a fever of 100.5 Fahrenheit. Objective Data Objective Data Vital Signs: Vital Signs Temp Pulse Resp BP Pulse Ox 100.5 F H 102 H 20 H 106/71 91 04/16/21 09:14 04/16/21 09:24 04/16/21 09:14 04/16/21 09:24 04/16/21 09:14 Oxygen Flow Rate (L/min) 12 Oxygen Delivery Method Nasal Cannula Weight: 312 lb 6.32 oz Body Mass Index (BMI) 44.8 Intake & Output: Intake and Output for Last 24 Hours 04/14/21 04/15/21 04/16/21 23:59 23:59 23:59 Intake Total 750 / 750 240 / 240 Output Total 2 / 2 Balance 750 / 750 238 / 238 Lab / Micro Data Result Diagrams: 04/15/21 07:14 04/15/21 07:14 Labs: Laboratory Results - last 24 hr 04/15/21 11:40: POC Glucose 499 H* 04/15/21 13:54: POC Glucose > 500 H* 04/15/21 16:42: POC Glucose 388 H 04/15/21 22:38: POC Glucose 311 H 04/16/21 09:10: POC Glucose 269 H Rhythm Strip Rhythm Strip: Sinus Tach Rate: 104 Ectopy: None Physical Exam Const alert, oriented x3 and no apparent distress General Appearance: cooperative Exam Limitations: no limitations Nutritional Appearance: morbidly obese HEENT normocephalic, head/scalp atraumatic and moist oral mucous membranes Head and Scalp: normocephalic Eyes PERRL, EOMs intact bilaterally, conjunctivae normal and no scleral icterus Neck no lymphadenopathy, supple and no JVD General: trachea midline Resp Resp Narrative: diminished breath sounds bibasally, no wheezes or crackles. On 6L of oxygen, later went up to 12L of oxygen Effort and Inspection: tachypneic Auscultation: wheezes scattered wheezes and diminished lung sounds bilateral throughout Cardio regular rate, regular rhythm, S1 normal heart sound, S2 normal heart sound, no murmurs and peripheral pulses 2+ throughout Rate: tachycardic GI normal to inspection, nondistended, normoactive bowel sounds, soft to palpation, non-tender and non-distended Extremity normal to inspection, full ROM, normal capillary refill and no clubbing, cyano sis or edema General Extremity: no tenderness to palpation of joints or extremities Peripheral Pulses: Yes pulses 2+ throughout Skin no rashes or lesions noted General Skin Exam: no breakdown and turgor normal Lesions: no lesions Rashes: no rashes Neuro oriented x3, CN's II-XII intact bilaterally, moves all extremities, no focal motor deficits and no sensory deficits noted Sensorium / Orientation: awake and alert Speech: speech normal Motor Exam: Negative for general weakness Psych thought process normal, cooperative and affect normal Appearance: appropriate Assessment & Plan Assessment/Plan (1) Acute respiratory failure with hypoxia: (2) COVID-19: PLAN: #Acute hypoxic respiratory failure due to COVID 19 infection * now up to 12L of oxygen today * on decadron and remdesivir * on breathing treatment with bronchodilators * titrate oxygen to maintain sats >90% * check BNP * consult pulmonology. Give a dose of lasix today * #Elevated D dimer: CTA negative for PE. #Hypertension * on metoprolol. IV hydralazine prn * #Diabetes mellitus * metformin on hold. ISS. Accuchecks ACHS * #Hypothyroidism; on synthroid #History of ZOEY * says he has been told he has sleep apnea, but he doesnt use his CPAP machine because he saw commercials on TV that the CPAP machines cause cancer * will need to follow up with pulmonology on outpatient basis * DVT prophylaxis: lovenox sc 40mg bid Charges/Coding Visit Charges Inpatient E&M: 85607 Subs Hosp L3
[2021-04-16] MEDS: Furosemide 40 MG/4 ML Vial IV (12:08)
[2021-04-16] MEDS: 0.9% Saline Lock 10 ML Syringe IV (12:08)
[2021-04-16 12:30] LABS: Bedside Glucose 313 mg/dL (70-110)
[2021-04-16 13:45] LABS: BNP,B-Type NATRIURETIC PEPTIDE 80.7 pg/mL (0-100)
[2021-04-16 16:48] LABS: Pathologist Review Reviewed
[2021-04-16 22:05] LABS: Bedside Glucose 332 mg/dL (70-110)
[2021-04-16] MEDS: Pravastatin 40 MG Tablet PO (22:59)
[2021-04-16] MEDS: Insulin NPH Human 100 UNITS/ML PEN 10 UNITS SC (23:00)
[2021-04-16 23:16] LABS: Bedside Glucose 332 mg/dL (70-110)
--- NOTE | 2021-04-16 23:47 | NURSING ---
girlfriend Kori called and asked for an update. Pt aware and ok with it.
[2021-04-17] VITALS (19 sets, daily range): BP systolic 100–126; BP diastolic 48–83; PULSE 73–104; RESP 16–38; TEMP 36.9–38; O2SAT 84–97
[2021-04-17] MEDS: dexAMETHasone 2 MG TABLET 6 MG PO (08:27)
[2021-04-17] MEDS: Multivitamins,Therapeutic Tablet 1 TABLET PO (08:27)
[2021-04-17] MEDS: Metoprolol Tartrate 50 MG Tablet PO ×2 (08:27→20:17)
[2021-04-17] MEDS: Levothyroxine 50 MCG Tablet PO (08:27)
[2021-04-17] MEDS: Aspirin 81 MG TAB.CHEW PO (08:28)
[2021-04-17] MEDS: Enoxaparin 40 MG/0.4 ML Syringe SC ×2 (08:28→20:16)
[2021-04-17] MEDS: Insulin Lispro 100 UNIT/ML INSULN.PEN SC ×4 (08:28→20:18)
[2021-04-17 08:46] LABS: Bedside Glucose 222 mg/dL (70-110)
[2021-04-17 09:49] LABS: Absolute Lymphocyte Count 0.39 X10^3/uL (0.83-4.51); Absolute Neutrophil Count 9.4 X10^3/uL (2.0-7.7); Basophil# 0.01 X10^3/uL; Basophil% 0.1 % (0-1); Hematocrit 50.8 % (40-54); Hemoglobin 15.9 g/dL (13.0-16.5); Lymphocyte # 0.39 X10^3/ul (0.83-4.51); Lymphocyte % 3.9 % (19-41); Mean Corp Hgb Conc 31.3 g/dL (32-36); Mean Corpuscular Volume 86.2 fL (80-94); Mean Platelet Vol. 9.8 fl (6.2-12.0); Monocyte# 0.23 X10^3/uL; Monocyte% 2.3 % (0-10); NRBC Flagged by Analyzer 0 % (0-5); Neutrophil # 9.43 X10^3/uL (2.7-7.7); Neutrophil % 93.2 % (47-70); POSITIVE DIFFERENTIAL YES; Platelet Count 188 K/mm3 (150-450); RBC Distribution Width CV 16.2 % (11.6-14.6); Red Blood Count 5.89 M/mm3 (4.6-6.2); White Blood Count 10.1 K/mm3 (4.4-11.0)
[2021-04-17 09:59] LABS: Differential Indicated SCAN CRITERIA MET
[2021-04-17 10:09] LABS: ALB/GLOB Ratio 0.4 RATIO (0.9-2.4); AST(SGOT) 33 U/L (15-37); Alanine Aminotransfer ALT/SGPT 23 U/L (16-61); Albumin, Serum 1.9 g/dL (3.2-5.0); Alkaline Phosphatase 80 U/L (45-117); Anion Gap 7 (5-15); BUN 24 mg/dL (7-18); BUN/Creat Ratio 28.3 RATIO (10-20); Calcium,Total 8.6 mg/dL (8.5-10.1); Chloride 98 mmol/L (98-107); Creatinine, Serum 0.85 mg/dL (0.70-1.30); EST Glomerular Filtration Rate 100 mL/min (>60); Est Glom Filt Rate - Afr Amer 121 mL/min (>60); Estimated Creatinine Clearance 101.39 ml/min; Globulin 4.8 g/dL (2.2-4.2); Glucose 228 mg/dL (74-106); Potassium 4.2 mmol/L (3.5-5.1); Protein, Total 6.7 g/dL (6.4-8.2); Sodium Level 135 mmol/L (136-145)
[2021-04-17 10:51] LABS: Platelet Estimate ADEQUATE (ADEQ); Red Cell Morphology NORM C+C NORMAL (NORM C&C)
--- NOTE | 2021-04-17 11:32 | PN.HOSP_ITS ---
Subjective Subjective Patient seen and examined. He feels more short of breath today. He is on 15 L of oxygen. He still coughing but denies any chest pain, palpitations, dizziness, nausea vomiting or diarrhea. Review of systems otherwise negative. Pulmonology consulted. Temperature is 99.7 ?F this morning was 100.4 Fahrenheit earlier in the day. Objective Data Objective Data Vital Signs: Vital Signs Temp Pulse Resp BP Pulse Ox 99.7 F H 80 20 H 109/52 L 97 04/17/21 08:26 04/17/21 08:27 04/17/21 08:26 04/17/21 08:26 04/17/21 08:26 Oxygen Flow Rate (L/min) 15 Oxygen Delivery Method Nasal Cannula Weight: 312 lb 6.32 oz Body Mass Index (BMI) 44.8 Intake & Output: Intake and Output for Last 24 Hours 04/15/21 04/16/21 04/17/21 23:59 23:59 23:59 Intake Total 240 / 240 1695 / 1695 Output Total 2 / 2 1300 / 1300 200 / 200 Balance 238 / 238 395 / 395 -200 / -200 Lab / Micro Data Result Diagrams: 04/17/21 09:35 04/17/21 09:35 Labs: Laboratory Results - last 24 hr 04/15/21 07:14: Diff Path Review Reviewed 04/16/21 12:02: POC Glucose 313 H 04/16/21 13:20: B-Natriuretic Peptide 80.7 04/16/21 16:35: POC Glucose 332 H 04/16/21 22:51: POC Glucose 332 H 04/17/21 08:19: POC Glucose 222 H 04/17/21 09:35: WBC 10.1, RBC 5.89, Hgb 15.9, Hct 50.8, MCV 86.2, MCH 27.0, MCHC 31.3 L, RDW Std Deviation 51.0 H, RDW Coeff of Renato 16.2 H, Plt Count 188, MPV 9.8, Immature Gran % (Auto) 0.500, Neut % (Auto) 93.2 H, Lymph % (Auto) 3.9 L, [place] % (Auto) 2.3, Eos % (Auto) 0.0, Baso % (Auto) 0.1, Absolute Neuts (auto) 9.4 H, Absolute Lymphs (auto) 0.39 L, Nucleated RBC % 0, Differential Comment , Platelet Estimate ADEQUATE, RBC Morphology NORM C+C 04/17/21 09:35: Sodium 135 L, Potassium 4.2, Chloride 98, Carbon Dioxide 30.0, Anion Gap 7, BUN 24 H, Creatinine 0.85, Estim Creat Clear Calc 101.39, Est GFR (MDRD) Af Amer 121, Est GFR (MDRD) Non-Af 100, BUN/Creatinine Ratio 28.3 H, Glucose 228 H, Calcium 8.6, Total Bilirubin 0.50, AST 33, ALT 23, Alkaline Phosphatase 80, Total Protein 6.7, Albumin 1.9 L, Globulin 4.8 H, Albumin/Globulin Ratio 0.4 L Micro: Microbiology 04/14/21 17:20 Blood Culture (Wb) - Anticubital Left Blood Culture - Preliminary No growth in 48 hours. 04/14/21 17:15 Blood Culture (Wb) - Arm Left Blood Culture - Preliminary No growth in 48 hours. Rhythm Strip Rhythm Strip: Sinus Tach Rate: 104 Ectopy: None Physical Exam Const alert, oriented x3 and no apparent distress General Appearance: cooperative Exam Limitations: no limitations Nutritional Appearance: morbidly obese HEENT normocephalic, head/scalp atraumatic and moist oral mucous membranes Head and Scalp: normocephalic Eyes PERRL, EOMs intact bilaterally, conjunctivae normal and no scleral icterus Neck no lymphadenopathy, supple and no JVD General: trachea midline Resp Resp Narrative: diminished breath sounds bibasally, no wheezes or crackles. On 15L of oxygen. Effort and Inspection: tachypneic Auscultation: wheezes scattered wheezes and diminished lung sounds bilateral throughout Cardio regular rate, regular rhythm, S1 normal heart sound, S2 normal heart sound, no murmurs and peripheral pulses 2+ throughout Rate: tachycardic GI normal to inspection, nondistended, normoactive bowel sounds, soft to palpation, non-tender and non-distended Extremity normal to inspection, full ROM, normal capillary refill and no clubbing, cyanosis or edema General Extremity: no tenderness to palpation of joints or extremities Peripheral Pulses: Yes pulses 2+ throughout Skin no rashes or lesions noted General Skin Exam: no breakdown and turgor normal Lesions: no lesions Rashes: no rashes Neuro oriented x3, CN's II-XII intact bilaterally, moves all extremities, no focal motor deficits and no sensory deficits noted Sensorium / Orientation: awake and alert Speech: speech normal Motor Exam: Negative for general weakness Psych thought process normal, cooperative and affect normal Appearance: appropriate Assessment & Plan Assessment/Plan (1) Acute respiratory failure with hypoxia: (2) COVID-19: PLAN: #Acute hypoxic respiratory failure due to COVID 19 infection * now on 15L of oxygen * on decadron; was diagnosed on April 10, and symptoms started at the end of March. * on breathing treatment with bronchodilators * titrate oxygen to maintain sats >90% * BNP was 80.7. Will give another dose of lasix today. * pulmonology consulted. Await rec's. * #Elevated D dimer: CTA negative for PE. #Hypertension * on metoprolol. IV hydralazine prn * #Diabetes mellitus * metformin on hold. ISS. Accuchecks ACHS * #Hypothyroidism; on synthroid #History of ZOEY * says he has been told he has sleep apnea, but he doesnt use his CPAP machine because he saw commercials on TV that the CPAP machines cause cancer * will need to follow up with pulmonology on outpatient basis * DVT prophylaxis: lovenox sc 40mg bid Charges/Coding Visit Charges Inpatient E&M: 95284 Subs Hosp L3
[2021-04-17] MEDS: Furosemide 40 MG/4 ML Vial IV (12:21)
[2021-04-17] MEDS: 0.9% Saline Lock 10 ML Syringe IV (12:21)
[2021-04-17 12:35] LABS: Bedside Glucose 209 mg/dL (70-110)
--- NOTE | 2021-04-17 13:50 | CON.PCM.CC_ITS ---
Assessment & Plan Assessment/Plan (1) Acute respiratory failure with hypoxia: (2) COVID-19: PLAN: RECOMMENDATIONS: 1. Wean supplemental oxygen to maintain saturations at or above 90%. 2. Continue Decadron to complete 10-day treatment course. 3. Continue Lovenox twice daily. 4. Encourage incentive spirometer use and mobilize patient as tolerated. 5. Await prone positioning was encouraged. 6. Consider ID consultation, re: CARLA inhibitor therapy 7. Utilize Lasix as needed to maintain euvolemic state. IMPRESSIONS: 1. Acute hypoxemic respiratory failure secondary to COVID-19 pneumonia The patient presented to the hospital with progressive dyspnea and hypoxemia. His symptoms began at the end of March and the patient subsequently tested positive for Covid on April 10. From my perspective, the patient is currently outside of the window to administer remdesivir. Recommend continuing Decadron to complete 10-day treatment course. In addition, Lovenox twice daily will be continued. Utilize as needed Lasix to maintain euvolemic state. Wean supplemental oxygen to maintain saturations at or above 90%. Encourage incent jose ramon spirometer use and mobilize patient as tolerated. 2. Obesity/hypothyroidism/diabetes mellitus/hyperlipidemia Complicates care, management, recovery and prognosis. Continue home medications as indicated. This note was generated with [employer] dictation software. It may contain incorrect words, spelling, and punctuation that were not noted in checking the note before signing. HPI Consult Data Date of Consult: 04/17/21 HPI Narrative Reason for Consultation: Acute hypoxemic respiratory failure secondary to COVID- 19 pneumonia HPI Narrative: The patient is a 55-year-old male, with a history as outlined below, who presented to the emergency department on April 15 with worsening dyspnea and hypoxemia. He had previously been diagnosed with COVID-19 pneumonia on April 10. His symptoms began at the end of March. The patient was screened for monoclonal therapy but was noted to be hypoxemic and was sent to the emergency department for evaluation. The patient is unvaccinated. He does report sick contact exposure to his , who was previously diagnosed with COVID-19. On presentation to the emergency department, the patient was noted to be afebrile and hemodynamically stable. Initial laboratory evaluation revealed a D-dimer of 0.82. Chemistry profile was largely unremarkable. Lactate was within normal limits. Liver function was within normal limits. Procalcitonin was noted to be 0.13. CTA chest showed no evidence for pulmonary embolism. Diffuse groundglass opacities were noted. The patient was subsequently placed on twice daily Lovenox along with Decadron. He was admitted to the progressive care unit for further management. [facility] Medical History (Updated 04/15/21 @ 00:[address] Nila Jeffries, DO) Diabetes Hyperlipidemia Hypertension Hypothyroidism Home Medications aspirin 81 mg PO DAILY@0800 01/06/16 [History Last Taken Unknown] levothyroxine 50 mcg PO DAILY 01/06/16 [History Last Taken 04/06/16 05:30 50 MCG] metformin 1,000 mg PO DAILY 01/06/16 [History Last Taken Unknown] metformin 500 mg PO QHS 01/06/16 [History Last Taken Unknown] multivitamin [Daily Multiple Vitamin] 1 ea PO DAILY 01/06/16 [History Last Taken Unknown] pravastatin 40 mg PO DAILY 01/06/16 [History Last Taken Unknown] metoprolol tartrate 50 mg PO BID 04/02/16 [History Last Taken 04/06/16 05:30 50 MG] Allergy/AdvReac Type Severity Reaction Status Date / Time No Known Allergies Allergy Verified 04/14/21 16:34 Family History (Updated 04/14/21 @ 21:56 by ADELINE Stanford) Other Diabetes Hypertension Surgical History History of coronary artery bypass graft History of tonsillectomy Social History (Updated 04/14/21 @ 21:57 by Elsie Toure NP-C) Smoking Status: Never smoker alcohol intake: never substance use type: does not use ROS Constitutional Constitutional: Reports fatigue and malaise Eyes Eyes: Denies blurry vision or change in vision ENT HEENT: Denies dizziness, dysphagia, loss taste/smell or nasal discharge Cardiovascular Cardiovascular: Reports dyspnea; Denies chest pain Respiratory/Chest Respiratory/Chest: Reports cough and dyspnea Gastrointestinal Gastrointestinal: Denies abdominal pain, diarrhea, nausea or vomiting Genitourinary Genitourinary: Denies difficulty urinating Musculoskeletal Musculoskeletal: Denies arthralgias, back pain or joint pain Integumentary Integumentary: Denies lesions, rash or skin ulcer Neurologic Neurologic: Denies abnormal gait or abnormal speech Psychiatric Psychiatric: Denies anxiety or depression Endocrine Endocrinology: Denies fatigue Hematologic/Lymphatic Hematologic/Lymphatic: Denies easy bleeding or easy bruising Physical Exam Const alert General Appearance: cooperative and well developed Nutritional Appearance: morbidly obese HEENT normocephalic, head/scalp atraumatic and moist oral mucous membranes Eyes EOMs intact bilaterally and conjunctivae normal Neck supple General: trachea midline Chest inspection of chest normal Resp Effort and Inspection: able to speak in complete sentences Auscultation: diminished lung sounds; Negative for rales, rhonchi or wheezes Cardio regular rate and regular rhythm GI normal to inspection, nondistended, normoactive bowel sounds Extremity no clubbing, cyanosis or edema Skin no rashes or lesions noted Neuro CN's II-XII intact bilaterally and no focal motor deficits Psych cooperative and affect normal Lab / Micro Data Result Diagrams: 04/17/21 09:35 04/17/21 09:35 Labs: Laboratory Results - last 24 hr 04/15/21 07:14: Diff Path Review Reviewed 04/16/21 16:35: POC Glucose 332 H 04/16/21 22:51: POC Glucose 332 H 04/17/21 08:19: POC Glucose 222 H 04/17/21 09:35: WBC 10.1, RBC 5.89, Hgb 15.9, Hct 50.8, MCV 86.2, MCH 27.0, MCHC 31.3 L, RDW Std Deviation 51.0 H, RDW Coeff of Renato 16.2 H, Plt Count 188, MPV 9.8, Immature Gran % (Auto) 0.500, Neut % (Auto) 93.2 H, Lymph % (Auto) 3.9 L, [place] % (Auto) 2.3, Eos % (Auto) 0.0, Baso % (Auto) 0.1, Absolute Neuts (auto) 9.4 H, Absolute Lymphs (auto) 0.39 L, Nucleated RBC % 0, Differential Comment , Platelet Estimate ADEQUATE, RBC Morphology NORM C+C 04/17/21 09:35: Sodium 135 L, Potassium 4.2, Chloride 98, Carbon Dioxide 30.0, Anion Gap 7, BUN 24 H, Creatinine 0.85, Estim Creat Clear Calc 101.39, Est GFR (MDRD) Af Amer 121, Est GFR (MDRD) Non-Af 100, BUN/Creatinine Ratio 28.3 H, Glucose 228 H, Calcium 8.6, Total Bilirubin 0.50, AST 33, ALT 23, Alkaline Phosphatase 80, Total Protein 6.7, Albumin 1.9 L, Globulin 4.8 H, Albumin/Globulin Ratio 0.4 L 04/17/21 12:22: POC Glucose 209 H Micro: Microbiology 04/14/21 17:20 Blood Culture (Wb) - Anticubital Left Blood Culture - Preliminary No growth in 48 hours. 04/14/21 17:15 Blood Culture (Wb) - Arm Left Blood Culture - Preliminary No growth in 48 hours. Rhythm Strip Rhythm Strip: Sinus Tach Rate: 104 Ectopy: None Charges/Coding Visit Charges Inpatient E&M: 19211 Init Hosp L3
--- NOTE | 2021-04-17 14:30 | CON.PCM.ID_ITS ---
Assessment & Plan Assessment/Plan (1) Acute respiratory failure with hypoxia: (2) COVID-19: PLAN: Sx started 04/05/21. Unvaccinated. Family at home also with covid, but vaccinated and improving. On dex, did not qualify for remdesivir due to timing. Plan on 20 days of quarantine. With rapidly worsening hypoxia, will order baricitinib for 14 day course or to stop at time of discharge. Reviewed risk and benefits of EUA with him and he is in agreement. Will follow, thank you, d/w Dr. Mercado and Dr. Finch HPI Consult Data Date of Consult: 04/17/21 HPI Narrative HPI Narrative: MONIKA MERLOS, is a 55 M who presented 04/14 with sx starting 04/05 with cough, SOB, change in taste and smell, congestion, diarrhea. Unvaccinated. and son at home also sick, but vaccinated and improving. Came to ED, with hypoxia, started on dex, not given remdesivir due to timing of symptoms. Now with worsening hypoxia. Pulm consulted, ID consulted. Full ROS performed and neg except as noted above. FORMERLY [facility], [facility] Medical History Diabetes Hyperlipidemia Hypertension Hypothyroidism Home Medications aspirin 81 mg PO DAILY@0800 01/06/16 [History Last Taken Unknown] levothyroxine 50 mcg PO DAILY 01/06/16 [History Last Taken 04/06/16 05:30 50 MCG] metformin 1,000 mg PO DAILY 01/06/16 [History Last Taken Unknown] metformin 500 mg PO QHS 01/06/16 [History Last Taken Unknown] multivitamin [Daily Multiple Vitamin] 1 ea PO DAILY 01/06/16 [History Last Taken Unknown] pravastatin 40 mg PO DAILY 01/06/16 [History Last Taken Unknown] metoprolol tartrate 50 mg PO BID 04/02/16 [History Last Taken 04/06/16 05:30 50 MG] Allergy/AdvReac Type Severity Reaction Status Date / Time No Known Allergies Allergy Verified 04/14/21 16:34 Family History (Updated 04/14/21 @ 21:56 by ANNELISE StanfordC) Other Diabetes Hypertension Surgical History History of coronary artery bypass graft History of tonsillectomy Social History (Updated 04/14/21 @ 21:57 by Elsie Toure [employer] WORKER-C) Smoking Status: Never smoker alcohol intake: never substance use type: does not use Physical Exam Const alert and oriented x3 Constitutional Narrative: ill appearing General Appearance: cooperative Exam Limitations: no limitations HEENT normocephalic and head/scalp atraumatic Eyes PERRL Neck supple and No nodes Resp Auscultation: diminished lung sounds Cardio regular rate and regular rhythm GI normal to inspection, nondistended, normoactive bowel sounds Extremity no clubbing, cyanosis or edema Skin no rashes or lesions noted Neuro CN's II-XII intact bilaterally Lab / Micro Data Result Diagrams: 04/17/21 09:35 04/17/21 09:35 Labs: Laboratory Results - last 24 hr 04/15/21 07:14: Diff Path Review Reviewed 04/16/21 16:35: POC Glucose 332 H 04/16/21 22:51: POC Glucose 332 H 04/17/21 08:19: POC Glucose 222 H 04/17/21 09:35: WBC 10.1, RBC 5.89, Hgb 15.9, Hct 50.8, MCV 86.2, MCH 27.0, MCHC 31.3 L, RDW Std Deviation 51.0 H, RDW Coeff of Renato 16.2 H, Plt Count 188, MPV 9.8, Immature Gran % (Auto) 0.500, Neut % (Auto) 93.2 H, Lymph % (Auto) 3.9 L, [place] % (Auto) 2.3, Eos % (Auto) 0.0, Baso % (Auto) 0.1, Absolute Neuts (auto) 9.4 H, Absolute Lymphs (auto) 0.39 L, Nucleated RBC % 0, Differential Comment , Platelet Estimate ADEQUATE, RBC Morphology NORM C+C 04/17/21 09:35: Sodium 135 L, Potassium 4.2, Chloride 98, Carbon Dioxide 30.0, Anion Gap 7, BUN 24 H, Creatinine 0.85, Estim Creat Clear Calc 101.39, Est GFR (MDRD) Af Amer 121, Est GFR (MDRD) Non-Af 100, BUN/Creatinine Ratio 28.3 H, Glucose 228 H, Calcium 8.6, Total Bilirubin 0.50, AST 33, ALT 23, Alkaline Phosphatase 80, Total Protein 6.7, Albumin 1.9 L, Globulin 4.8 H, Albumin /Globulin Ratio 0.4 L 04/17/21 12:22: POC Glucose 209 H Micro: Microbiology 04/14/21 17:20 Blood Culture (Wb) - Anticubital Left Blood Culture - Preliminary No growth in 48 hours. 04/14/21 17:15 Blood Culture (Wb) - Arm Left Blood Culture - Preliminary No growth in 48 hours. Rhythm Strip Rhythm Strip: Sinus Tach Rate: 104 Ectopy: None
[2021-04-17 18:30] LABS: Bedside Glucose 308 mg/dL (70-110)
[2021-04-17] MEDS: Pravastatin 40 MG Tablet PO (20:17)
[2021-04-17] MEDS: Insulin NPH Human 100 UNITS/ML PEN 10 UNITS SC (20:18)
[2021-04-17 21:06] LABS: Allen Test Positive; Base Excess 6 mmol/L (-2 to +2); Blood Gas Specimen Type ART; FI02 100; O2 Delivery Device BiPAP; PEEP 14; PO2 76 mmHG (75-100); SITE R Radial; SO2 95 % (95-99); Total Carbon Dioxide 31 mmol/L; pCO2 46.5 mmHg (35-45); pH 7.42 (7.35-7.45)
[2021-04-17 21:56] LABS: Bedside Glucose 307 mg/dL (70-110)
[2021-04-18] VITALS (28 sets, daily range): BP systolic 87–128; BP diastolic 48–99; PULSE 68–96; RESP 16–37; TEMP 36.6–36.9; O2SAT 88–98
--- NOTE | 2021-04-18 09:38 | PN.CC_ITS ---
Assessment & Plan Assessment/Plan (1) Acute respiratory failure with hypoxia: (2) COVID-19: PLAN: RECOMMENDATIONS: 1. Continue BiPAP and wean FiO2 as tolerated to maintain saturations at or above 90%. 2. Continue Decadron to complete 10-day treatment course. 3. Continue Lovenox twice daily. 4. Encourage incentive spirometer use and mobilize patient as tolerated. 5. Awake prone positioning was encouraged. 6. Continue baricitinib per ID recommendations. 7. Utilize Lasix as needed to maintain euvolemic state. 8. If the patient continues to decompensate clinically, transfer to ICU level of care. IMPRESSIONS: 1. Acute hypoxemic respiratory failure secondary to COVID-19 pneumonia The patient presented to the hospital with progressive dyspnea and hypoxemia. His symptoms began at the end of March and the patient subsequently tested positive for Covid on April 10. From my perspective, the patient is currently outside of the window to administer remdesivir. Recommend continuing Decadron to complete 10-day treatment course. In addition, Lovenox twice daily will be continued. Utilize as needed Lasix to maintain euvolemic state. Wean oxygen to maintain saturations at or above 90%. Encourage incentive spirometer use and mobilize patient as tolerated. Continue baricitinib per ID recommendations. 2. Obesity/hypothyroidism/diabetes mellitus/hyperlipidemia Complicates care, management, recovery and prognosis. Continue home medications as indicated. This note was generated with [email or web address] dictation software. It may contain incorrect words, spelling, and punctuation that were not noted in checking the note before signing. Subjective Subjective The patient was seen and examined at the bedside this morning. Events from the last 24 hours have been reviewed. The patient is currently afebrile, hemodynamically stable and maintaining appropriate oxygen saturations on BiPAP. The patient is currently documented to be overall net +500 mL for the hospital admission. The patient remains on Decadron, Lovenox and baricitinib. Objective Data Objective Data The patient's most recent lab work, culture data and imaging studies have all been personally reviewed. Blood cultures have demonstrated no growth to date. Vital Signs: Vital Signs Temp Pulse Resp BP Pulse Ox 98.2 F 82 37 H 110/83 H 89 04/18/21 06:24 04/18/21 07:00 04/18/21 06:24 04/18/21 06:24 04/18/21 06:24 Oxygen Flow Rate (L/min) 15 Oxygen Delivery Method Bi-pap Weight: 141.7 kg Body Mass Index (BMI) 44.8 Intake & Output: Intake and Output for Last 24 Hours 04/16/21 04/17/21 04/18/21 23:59 23:59 23:59 Intake Total 1695 / 1695 700 / 700 Output Total 1300 / 1300 800 / 1050 725 / 725 Balance 395 / 395 -100 / -350 -725 / -725 Lab / Micro Data Attestation: I reviewed the patient's lab results. Result Diagrams: 04/17/21 09:35 04/17/21 09:35 Labs: Laboratory Results - last 24 hr 04/17/21 09:35: WBC 10.1, RBC 5.89, Hgb 15.9, Hct 50.8, MCV 86.2, MCH 27.0, MCHC 31.3 L, RDW Std Deviation 51.0 H, RDW Coeff of Renato 16.2 H, Plt Count 188, MPV 9.8, Immature Gran % (Auto) 0.500, Neut % (Auto) 93.2 H, Lymph % (Auto) 3.9 L, [place] % (Auto) 2.3, Eos % (Auto) 0.0, Baso % (Auto) 0.1, Absolute Neuts (auto) 9.4 H, Absolute Lymphs (auto) 0.39 L, Nucleated RBC % 0, Differential Comment , Platelet Estimate ADEQUATE, RBC Morphology NORM C+C 04/17/21 09:35: Sodium 135 L, Potassium 4.2, Chloride 98, Carbon Dioxide 30.0, Anion Gap 7, BUN 24 H, Creatinine 0.85, Estim Creat Clear Calc 101.39, Est GFR (MDRD) Af Amer 121, Est GFR (MDRD) Non-Af 100, BUN/Creatinine Ratio 28.3 H, Glucose 228 H, Calcium 8.6, Total Bilirubin 0.50, AST 33, ALT 23, Alkaline Phosphatase 80, Total Protein 6.7, Albumin 1.9 L, Globulin 4.8 H, Albumin/Globulin Ratio 0.4 L 04/17/21 12:22: POC Glucose 209 H 04/17/21 18:05: POC Glucose 308 H 04/17/21 20:04: POC Glucose 307 H Micro: Microbiology 04/14/21 17:20 Blood Culture (Wb) - Anticubital Left Blood Culture - Preliminary No growth in 48 hours. 04/14/21 17:15 Blood Culture (Wb) - Arm Left Blood Culture - Preliminary No growth in 48 hours. ABG Data ABG results: ABG 04/17/21 20:59 Specimen Type ART Sample Site R Radial pH 7.42 Bicarbonate Actual 30.0 H Total CO2 31 Base Excess 6 H O2 Saturation 95 O2 % 100 ABG pCO2 46.5 H ABG pO2 76 Vasquez Test Positive O2 Delivery Device BiPAP POC PEEP 14 Clinical Comments 18*14 Rhythm Strip Rhythm Strip: Sinus Tach Rate: 104 Ectopy: None Physical Exam Const alert General Appearance: cooperative, well developed and on BiPAP Nutritional Appearance: morbidly obese HEENT normocephalic, head/scalp atraumatic and moist oral mucous membranes Eyes EOMs intact bilaterally and conjunctivae normal Neck supple General: trachea midline Chest inspection of chest normal Resp Effort and Inspection: tachypneic Auscultation: diminished lung sounds; Negative for rales, rhonchi or wheezes Cardio regular rate and regular rhythm GI normal to inspection, nondistended, normoactive bowel sounds Extremity no clubbing, cyanosis or edema Skin no rashes or lesions noted Neuro CN's II-XII intact bilaterally and no focal motor deficits Psych cooperative and affect normal Charges/Coding Visit Charges Inpatient E&M: 61138 Subs Hosp L3
[2021-04-18] MEDS: dexAMETHasone 2 MG TABLET 6 MG PO (10:09)
[2021-04-18] MEDS: Multivitamins,Therapeutic Tablet 1 TABLET PO (10:09)
[2021-04-18] MEDS: Metoprolol Tartrate 50 MG Tablet PO ×2 (10:10→22:12)
[2021-04-18] MEDS: Levothyroxine 50 MCG Tablet PO (10:10)
[2021-04-18] MEDS: Aspirin 81 MG TAB.CHEW PO (10:10)
[2021-04-18] MEDS: Insulin Lispro 100 UNIT/ML INSULN.PEN SC ×3 (10:18→22:13)
[2021-04-18] MEDS: Enoxaparin 40 MG/0.4 ML Syringe SC ×2 (10:19→22:12)
--- NOTE | 2021-04-18 10:34 | PN.HOSP_ITS ---
Subjective Subjective Patient seen and examined. He was on BiPAP at time of review. He wanted to know when he could be taken off for him to eat breakfast. He had no other complaints and review of systems otherwise negative. Objective Data Objective Data Vital Signs: Vital Signs Temp Pulse Resp BP Pulse Ox 98.1 F 82 22 H 128/88 H 98 04/18/21 07:30 04/18/21 10:10 04/18/21 07:30 04/18/21 10:10 04/18/21 07:30 Oxygen Flow Rate (L/min) 15 Oxygen Delivery Method Bi-pap Weight: 312 lb 6.32 oz Body Mass Index (BMI) 44.8 Intake & Output: Intake and Output for Last 24 Hours 04/16/21 04/17/21 04/18/21 23:59 23:59 23:59 Intake Total 1695 / 1695 700 / 700 120 / 120 Output Total 1300 / 1300 800 / 1050 1075 / 1075 Balance 395 / 395 -100 / -350 -955 / -955 Lab / Micro Data Result Diagrams: 04/17/21 09:35 04/17/21 09:35 Labs: Laboratory Results - last 24 hr 04/17/21 09:35: Differential Comment , Platelet Estimate ADEQUATE, RBC Morphology NORM C+C 04/17/21 12:22: POC Glucose 209 H 04/17/21 18:05: POC Glucose 308 H 04/17/21 20:04: POC Glucose 307 H Micro: Microbiology 04/14/21 17:20 Blood Culture (Wb) - Anticubital Left Blood Culture - Preliminary No growth in 48 hours. 04/14/21 17:15 Blood Culture (Wb) - Arm Left Blood Culture - Preliminary No growth in 48 hours. ABG Data ABG results: ABG 04/17/21 20:59 Specimen Type ART Sample Site R Radial pH 7.42 Bicarbonate Actual 30.0 H Total CO2 31 Base Excess 6 H O2 Saturation 95 O2 % 100 ABG pCO2 46.5 H ABG pO2 76 Vasquez Test Positive O2 Delivery Device BiPAP POC PEEP 14 Clinical Comments 18*14 Rhythm Strip Rhythm Strip: Sinus Tach Rate: 104 Ectopy: None Physical Exam Const alert, oriented x3 and no apparent distress General Appearance: cooperative Exam Limitations: no limitations Nutritional Appearance: morbidly obese HEENT normocephalic, head/scalp atraumatic and moist oral mucous membranes Head and Scalp: normocephalic Eyes PERRL, EOMs intact bilaterally, conjunctivae normal and no scleral icterus Neck no lymphadenopathy, supple and no JVD General: trachea midline Resp Resp Narrative: diminished breath sounds bibasally, no wheezes or crackles. On BIPAP Effort and Inspection: tachypneic Auscultation: wheezes scattered wheezes and diminished lung sounds bilateral thr oughout Cardio regular rate, regular rhythm, S1 normal heart sound, S2 normal heart sound, no murmurs and peripheral pulses 2+ throughout Rate: tachycardic GI normal to inspection, nondistended, normoactive bowel sounds, soft to palpation, non-tender and non-distended Extremity normal to inspection, full ROM, normal capillary refill and no clubbing, cyanosis or edema General Extremity: no tenderness to palpation of joints or extremities Peripheral Pulses: Yes pulses 2+ throughout Skin no rashes or lesions noted General Skin Exam: no breakdown and turgor normal Lesions: no lesions Rashes: no rashes Neuro oriented x3, CN's II-XII intact bilaterally, moves all extremities, no focal motor deficits and no sensory deficits noted Sensorium / Orientation: awake and alert Speech: speech normal Motor Exam: Negative for general weakness Psych thought process normal, cooperative and affect normal Appearance: appropriate Assessment & Plan Assessment/Plan (1) Acute respiratory failure with hypoxia: (2) COVID-19: PLAN: #Acute hypoxic respiratory failure due to COVID 19 infection * now on BIPAP this morning * on decadron * pulmonology and ID on board * started on Baricitinib yesterday, for a 14 day course, as ordered per ID * on breathing treatment with bronchodilators * titrate oxygen to maintain sats >90% * * #Elevated D dimer: CTA negative for PE. #Hypertension * on metoprolol. IV hydralazine prn * #Diabetes mellitus * metformin on hold. ISS. Accuchecks ACHS * #Hypothyroidism; on synthroid #History of ZOEY * doesnt use his CPAP machine * to follow up with pulmonology on outpatient basis * DVT prophylaxis: lovenox sc 40mg bid Charges/Coding Visit Charges Inpatient E&M: 70427 Subs Hosp L3
[2021-04-18 10:36] LABS: Bedside Glucose 257 mg/dL (70-110)
[2021-04-18 17:36] LABS: Bedside Glucose 355 mg/dL (70-110)
[2021-04-18] MEDS: Insulin NPH Human 100 UNITS/ML PEN 10 UNITS SC (22:11)
[2021-04-18] MEDS: Acetaminophen 325 MG Tablet 650 MG PO (22:12)
[2021-04-18] MEDS: Pravastatin 40 MG Tablet PO (22:13)
[2021-04-19] VITALS (26 sets, daily range): BP systolic 86–141; BP diastolic 48–96; PULSE 68–89; RESP 16–28; TEMP 36.4–36.6; O2SAT 81–97
[2021-04-19 01:11] LABS: Bedside Glucose 292 mg/dL (70-110)
[2021-04-19 06:56] LABS: Absolute Lymphocyte Count 0.65 X10^3/uL (0.83-4.51); Absolute Neutrophil Count 5.6 X10^3/uL (2.0-7.7); Basophil# 0.01 X10^3/uL; Basophil% 0.2 % (0-1); Hemoglobin 15.6 g/dL (13.0-16.5); Lymphocyte # 0.65 X10^3/ul (0.83-4.51); Lymphocyte % 9.8 % (19-41); Mean Corp Hgb Conc 30.6 g/dL (32-36); Mean Corpuscular Hgb 26.8 pg (27.0-32.0); Mean Corpuscular Volume 87.6 fL (80-94); Mean Platelet Vol. 10.6 fl (6.2-12.0); Monocyte# 0.32 X10^3/uL; Monocyte% 4.8 % (0-10); NRBC Flagged by Analyzer 0 % (0-5); Neutrophil # 5.64 X10^3/uL (2.7-7.7); Neutrophil % 84.6 % (47-70); POSITIVE MORPHOLOGY YES; Platelet Count 255 K/mm3 (150-450); RBC Distribution Width CV 15.9 % (11.6-14.6); RBC Distribution Width SD 50.8 fl (35.1-43.9); Red Blood Count 5.82 M/mm3 (4.6-6.2); White Blood Count 6.7 K/mm3 (4.4-11.0)
[2021-04-19 07:07] LABS: Differential Indicated SCAN CRITERIA MET
[2021-04-19 07:23] LABS: ALB/GLOB Ratio 0.3 RATIO (0.9-2.4); AST(SGOT) 38 U/L (15-37); Alanine Aminotransfer ALT/SGPT 24 U/L (16-61); Albumin, Serum 1.8 g/dL (3.2-5.0); Alkaline Phosphatase 87 U/L (45-117); Anion Gap 3 (5-15); BUN 41 mg/dL (7-18); BUN/Creat Ratio 36.6 RATIO (10-20); Chloride 98 mmol/L (98-107); Creatinine, Serum 1.12 mg/dL (0.70-1.30); EST Glomerular Filtration Rate 72 mL/min (>60); Est Glom Filt Rate - Afr Amer 87 mL/min (>60); Estimated Creatinine Clearance 76.95 ml/min; Globulin 5.3 g/dL (2.2-4.2); Glucose 233 mg/dL (74-106); Potassium 4.4 mmol/L (3.5-5.1); Protein, Total 7.1 g/dL (6.4-8.2); Sodium Level 135 mmol/L (136-145)
[2021-04-19 08:13] LABS: Differential Comment SCANNED
[2021-04-19 09:25] LABS: Reactive Lymphocyte 1+
[2021-04-19] MEDS: Levothyroxine 50 MCG Tablet PO (09:37)
[2021-04-19] MEDS: dexAMETHasone 2 MG TABLET 6 MG PO (09:37)
[2021-04-19] MEDS: Aspirin 81 MG TAB.CHEW PO (09:37)
[2021-04-19] MEDS: Multivitamins,Therapeutic Tablet 1 TABLET PO (09:37)
[2021-04-19] MEDS: Enoxaparin 40 MG/0.4 ML Syringe SC ×2 (09:38→21:19)
[2021-04-19] MEDS: Insulin Lispro 100 UNIT/ML INSULN.PEN SC ×4 (09:38→21:20)
--- NOTE | 2021-04-19 10:08 | PN.HOSP_ITS ---
Subjective Subjective Patient seen and examined. He had no new complaints. He remains on BIPAP and is requiring 95% FiO2. BP was noted to be in the 80s and 90s systolic, so metoprolol is being held. Review of systems is otherwise negative. Objective Data Objective Data Vital Signs: Vital Signs Temp Pulse Resp BP Pulse Ox 97.5 F L 79 28 H 111/85 H 92 04/19/21 09:32 04/19/21 09:32 04/19/21 09:32 04/19/21 09:32 04/19/21 09:32 Oxygen Flow Rate (L/min) 15 Oxygen Delivery Method Bi-pap Weight: 312 lb 6.32 oz Body Mass Index (BMI) 44.8 Intake & Output: Intake and Output for Last 24 Hours 04/17/21 04/18/21 04/19/21 23:59 23:59 23:59 Intake Total 700 / 700 370 / 370 500 / 500 Output Total 800 / 1050 1300 / 1300 500 / 500 Balance -100 / -350 -930 / -930 0 / 0 Lab / Micro Data Result Diagrams: 04/19/21 06:39 04/19/21 06:39 Labs: Laboratory Results - last 24 hr 04/18/21 10:07: POC Glucose 257 H 04/18/21 16:58: POC Glucose 355 H 04/18/21 22:10: POC Glucose 292 H 04/19/21 06:39: WBC 6.7, RBC 5.82, Hgb 15.6, Hct 51.0, MCV 87.6, MCH 26.8 L, M CHC 30.6 L, RDW Std Deviation 50.8 H, RDW Coeff of Renato 15.9 H, Plt Count 255, MPV 10.6, Immature Gran % (Auto) 0.600, Neut % (Auto) 84.6 H, Lymph % (Auto) 9.8 L, [place] % (Auto) 4.8, Eos % (Auto) 0.0, Baso % (Auto) 0.2, Absolute Neuts (auto) 5.6, Absolute Lymphs (auto) 0.65 L, Nucleated RBC % 0, Differential Comment SCANNED, Atypical Lymphocytes KETTLE CHIPPER, Reactive Lymphocytes 1+ 04/19/21 06:39: Sodium 135 L, Potassium 4.4, Chloride 98, Carbon Dioxide 34.0 H, Anion Gap 3 L, BUN 41 H, Creatinine 1.12, Estim Creat Clear Calc 76.95, Est GFR (MDRD) Af Amer 87, Est GFR (MDRD) Non-Af 72, BUN/Creatinine Ratio 36.6 H, Glucose 233 H, Calcium 9.0, Total Bilirubin 0.60, AST 38 H, ALT 24, Alkaline Phosphatase 87, Total Protein 7.1, Albumin 1.8 L, Globulin 5.3 H, Albumin/Globulin Ratio 0.3 L Micro: Microbiology 04/14/21 17:20 Blood Culture (Wb) - Anticubital Left Blood Culture - Preliminary No growth in 48 hours. 04/14/21 17:15 Blood Culture (Wb) - Arm Left Blood Culture - Preliminary No growth in 48 hours. Rhythm Strip Rhythm Strip: Sinus Tach Rate: 104 Ectopy: None Physical Exam Const alert, oriented x3 and no apparent distress General Appearance: cooperative Exam Limitations: no limitations Nutritional Appearance: morbidly obese HEENT normocephalic, head/scalp atraumatic and moist oral mucous membranes Head and Scalp: normocephalic Eyes PERRL, EOMs intact bilaterally, conjunctivae normal and no scleral icterus Neck no lymphadenopathy, supple and no JVD General: trachea midline Resp Resp Narrative: diminished breath sounds bibasally, no wheezes or crackles. On BIPAP with FiO2 95%, tachypneic Effort and Inspection: tachypneic Auscultation: wheezes scattered wheezes and diminished lung sounds bilateral throughout Cardio regular rate, regular rhythm, S1 normal heart sound, S2 normal heart sound, no murmurs and peripheral pulses 2+ throughout Rate: tachycardic GI normal to inspection, nondistended, normoactive bowel sounds, soft to palpation, non-tender and non-distended Extremity normal to inspection, full ROM, normal capillary refill and no clubbing, cyanosis or edema General Extremity: no tenderness to palpation of joints or extremities Peripheral Pulses: Yes pulses 2+ throughout Skin no rashes or lesions noted General Skin Exam: no breakdown and turgor normal Lesions: no lesions Rashes: no rashes Neuro oriented x3, CN's II-XII intact bilaterally, moves all extremities, no focal motor deficits and no sensory deficits noted Sensorium / Orientation: awake and alert Speech: speech normal Motor Exam: Negative for general weakness Psych thought process normal, cooperative and affect normal Appearance: appropriate Assessment & Plan Assessment/Plan (1) Acute respiratory failure with hypoxia: (2) COVID-19: PLAN: #Acute hypoxic respiratory failure due to COVID 19 infection * remains on BIPAP at 95% FiO2 * on decadron * pulmonology and ID on board * on Baricitinib for a 14 day course, as ordered per ID * on breathing treatment with bronchodilators * titrate oxygen to maintain sats >90% * * #Elevated D dimer: CTA negative for PE. #Hypertension * metoprolol held as BP is running in the 90s/ * #Diabetes mellitus * metformin on hold. ISS. Accuchecks ACHS * #Hypothyroidism; on synthroid #History of ZOEY * doesnt use his CPAP machine * to follow up with pulmonology on outpatient basis * DVT prophylaxis: lovenox sc 40mg bid Charges/Coding Visit Charges Inpatient E&M: 79515 Subs Hosp L3
[2021-04-19 11:45] LABS: Bedside Glucose 221 mg/dL (70-110)
[2021-04-19 13:05] LABS: Bedside Glucose 226 mg/dL (70-110)
--- NOTE | 2021-04-19 14:25 | PN.CC_ITS ---
Assessment & Plan Assessment/Plan (1) Acute respiratory failure with hypoxia: (2) COVID-19: PLAN: RECOMMENDATIONS: 1. Continue BiPAP and wean FiO2 as tolerated to maintain saturations at or above 90%. 2. Continue Decadron to complete 10-day treatment course. 3. Continue Lovenox twice daily. 4. Encourage incentive spirometer use and mobilize patient as tolerated. 5. Awake prone positioning was encouraged. 6. Continue baricitinib per ID recommendations. 7. Utilize Lasix as needed to maintain euvolemic state. Hold Lasix today 8. If the patient continues to decompensate clinically, transfer to ICU level of care. 9. Increase Lantus given hyperglycemia IMPRESSIONS: 1. Acute hypoxemic respiratory failure secondary to COVID-19 pneumonia The patient presented to the hospital with progressive dyspnea and hypoxem ia. His symptoms began at the end of March and the patient subsequently tested positive for Covid on April 10. From my perspective, the patient is currently outside of the window to administer remdesivir. Recommend continuing Decadron to complete 10-day treatment course. In addition, Lovenox twice daily will be continued. Utilize as needed Lasix to maintain euvolemic state. Wean oxygen to maintain saturations at or above 90%. Encourage incentive spirometer use and mobilize patient as tolerated. Continue baricitinib per ID recommendations. No indications for cessation on laboratory testing. 2. Obesity/hypothyroidism/diabetes mellitus/hyperlipidemia Complicates care, management, recovery and prognosis. Continue home medications as indicated. Lantus will be increased. This note was generated with [employer] dictation software. It may contain incorrect words, spelling, and punctuation that were not noted in checking the note before signing. Subjective Subjective Patient did okay overnight. Patient's oxygenation was slightly improved this morning on my evaluation. Patient subjectively felt slightly improved compared to yesterday. Patient continued to have a nonproductive cough. Patient was on BiPAP in a lateral decubitus position on my evaluation. Patient does not feel he can prone given his abdominal obesity. Objective Data Objective Data Vital Signs: Vital Signs Temp Pulse Resp BP Pulse Ox 36.4 C L 89 24 H 112/69 92 04/19/21 12:28 04/19/21 13:14 04/19/21 13:14 04/19/21 12:28 04/19/21 13:14 Oxygen Flow Rate (L/min) 15 Oxygen Delivery Method Bi-pap Weight: 141.7 kg Body Mass Index (BMI) 44.8 Intake & Output: Intake and Output for Last 24 Hours 04/17/21 04/18/21 04/19/21 23:59 23:59 23:59 Intake Total 700 / 700 370 / 370 500 / 500 Output Total 800 / 1050 1300 / 1300 800 / 800 Balance -100 / -350 -930 / -930 -300 / -300 Lab / Micro Data Result Diagrams: 04/19/21 06:39 04/19/21 06:39 Labs: Laboratory Results - last 24 hr 04/18/21 16:58: POC Glucose 355 H 04/18/21 22:10: POC Glucose 292 H 04/19/21 06:39: WBC 6.7, RBC 5.82, Hgb 15.6, Hct 51.0, MCV 87.6, MCH 26.8 L, MCHC 30.6 L, RDW Std Deviation 50.8 H, RDW Coeff of Renato 15.9 H, Plt Count 255, MPV 10.6, Immature Gran % (Auto) 0.600, Neut % (Auto) 84.6 H, Lymph % (Auto) 9.8 L, [place] % (Auto) 4.8, Eos % (Auto) 0.0, Baso % (Auto) 0.2, Absolute Neuts (auto) 5.6, Absolute Lymphs (auto) 0.65 L, Nucleated RBC % 0, Differential Comment SCANNED, Atypical Lymphocytes [employer], Reactive Lymphocytes 1+ 04/19/21 06:39: Sodium 135 L, Potassium 4.4, Chloride 98, Carbon Dioxide 34.0 H, Anion Gap 3 L, BUN 41 H, Creatinine 1.12, Estim Creat Clear Calc 76.95, Est GFR (MDRD) Af Amer 87, Est GFR (MDRD) Non-Af 72, BUN/Creatinine Ratio 36.6 H, Glucose 233 H, Calcium 9.0, Total Bilirubin 0.60, AST 38 H, ALT 24, Alkaline Phosphatase 87, Total Protein 7.1, Albumin 1.8 L, Globulin 5.3 H, Albumi n/Globulin Ratio 0.3 L 04/19/21 09:31: POC Glucose 221 H 04/19/21 12:26: POC Glucose 226 H Micro: Microbiology 04/14/21 17:20 Blood Culture (Wb) - Anticubital Left Blood Culture - Preliminary No growth in 48 hours. 04/14/21 17:15 Blood Culture (Wb) - Arm Left Blood Culture - Preliminary No growth in 48 hours. Rhythm Strip Rhythm Strip: Sinus Tach Rate: 104 Ectopy: None Physical Exam Const alert General Appearance: cooperative, well developed and on BiPAP Nutritional Appearance: morbidly obese HEENT normocephalic, head/scalp atraumatic and moist oral mucous membranes Eyes EOMs intact bilaterally and conjunctivae normal Neck supple General: trachea midline Chest inspection of chest normal Chest: symmetrical chest wall rise; Negative for crepitus Resp Effort and Inspection: tachypneic Auscultation: diminished lung sounds; Negative for rales, rhonchi or wheezes Cardio regular rate, regular rhythm, S1 normal heart sound, S2 normal heart sound, no murmurs, no rub and no gallops GI normal to inspection, nondistended, normoactive bowel sounds GI Narrative: Significant abdominal obesity Extremity no clubbing, cyanosis or edema Skin no rashes or lesions noted Neuro CN's II-XII intact bilaterally and no focal motor deficits Psych cooperative and affect normal Charges/Coding Visit Charges Inpatient E&M: 64889 Subs Hosp L3
[2021-04-19] MEDS: Pravastatin 40 MG Tablet PO (21:19)
[2021-04-19] MEDS: Metoprolol Tartrate 50 MG Tablet PO (21:29)
--- NOTE | 2021-04-19 21:41 | NURSING ---
Pt oxygen destating Spo2 85% on continuous bipap adjust on 80% oxygen now 93%, RR-22. Will let respiratory know. Pt denies any SOB, lungs sounds diminished, resting on right side. Will continue to monitor.
[2021-04-19 22:06] LABS: Bedside Glucose 253 mg/dL (70-110)
--- NOTE | 2021-04-19 22:26 | CPS ---
o2 increased to 80% for low sat-per nurse
[2021-04-19 22:41] LABS: Bedside Glucose 229 mg/dL (70-110)
--- NOTE | 2021-04-19 23:43 | NURSING ---
Addendum entered by Jazz Mclaughlin 04/20/21 00:19: Pt destat to 89% on 70% increase bipap oxygen back to 80%. No distress noted will continue to monitor. Spo2 91% at this time will continue to monitor. Original Note: This nurse adjusted patient oxygen on continuos bipap to 70% at this time. Spo2 94% and RR 21 denies any concerns or discomfort. Will continue to monitor.
[2021-04-20] VITALS (26 sets, daily range): BP systolic 103–132; BP diastolic 59–93; PULSE 66–87; RESP 16–32; TEMP 36.4–36.6; O2SAT 87–96
[2021-04-20 08:34] LABS: ALB/GLOB Ratio 0.3 RATIO (0.9-2.4); AST(SGOT) 66 U/L (15-37); Alanine Aminotransfer ALT/SGPT 31 U/L (16-61); Albumin, Serum 1.7 g/dL (3.2-5.0); Alkaline Phosphatase 101 U/L (45-117); Anion Gap 7 (5-15); BUN 30 mg/dL (7-18); BUN/Creat Ratio 40.8 RATIO (10-20); Calcium,Total 8.6 mg/dL (8.5-10.1); Chloride 103 mmol/L (98-107); Creatinine, Serum 0.74 mg/dL (0.70-1.30); EST Glomerular Filtration Rate 117 mL/min (>60); Est Glom Filt Rate - Afr Amer 142 mL/min (>60); Estimated Creatinine Clearance 116.46 ml/min; Globulin 5.2 g/dL (2.2-4.2); Glucose 143 mg/dL (74-106); Potassium 4.9 mmol/L (3.5-5.1); Protein, Total 6.9 g/dL (6.4-8.2); Sodium Level 134 mmol/L (136-145)
[2021-04-20 08:34] LABS: Absolute Lymphocyte Count 0.82 X10^3/uL (0.83-4.51); Basophil# 0.01 X10^3/uL; Basophil% 0.1 % (0-1); Eosinophil# 0.01 X10^3/uL; Eosinophils% 0.1 % (0-5); Hematocrit 53.8 % (40-54); Hemoglobin 16.7 g/dL (13.0-16.5); Lymphocyte # 0.82 X10^3/ul (0.83-4.51); Lymphocyte % 8.9 % (19-41); Mean Corpuscular Hgb 27.2 pg (27.0-32.0); Mean Corpuscular Volume 87.8 fL (80-94); Mean Platelet Vol. 10.6 fl (6.2-12.0); Monocyte# 0.32 X10^3/uL; Monocyte% 3.5 % (0-10); NRBC Flagged by Analyzer 0 % (0-5); Neutrophil # 7.98 X10^3/uL (2.7-7.7); Neutrophil % 86.5 % (47-70); Platelet Count 281 K/mm3 (150-450); RBC Distribution Width CV 15.4 % (11.6-14.6); RBC Distribution Width SD 49.5 fl (35.1-43.9); Red Blood Count 6.13 M/mm3 (4.6-6.2); White Blood Count 9.2 K/mm3 (4.4-11.0)
[2021-04-20] MEDS: dexAMETHasone 2 MG TABLET 6 MG PO (08:57)
[2021-04-20] MEDS: Aspirin 81 MG TAB.CHEW PO (08:57)
[2021-04-20] MEDS: Metoprolol Tartrate 50 MG Tablet PO ×2 (08:57→21:08)
[2021-04-20] MEDS: Levothyroxine 50 MCG Tablet PO (08:58)
[2021-04-20] MEDS: Multivitamins,Therapeutic Tablet 1 TABLET PO (08:58)
[2021-04-20] MEDS: Enoxaparin 40 MG/0.4 ML Syringe SC ×2 (08:59→21:08)
[2021-04-20 10:56] LABS: Bedside Glucose 153 mg/dL (70-110)
[2021-04-20 12:11] LABS: Bedside Glucose 236 mg/dL (70-110)
--- NOTE | 2021-04-20 13:51 | PN.CC_ITS ---
Assessment & Plan Assessment/Plan (1) Acute respiratory failure with hypoxia: (2) COVID-19: PLAN: RECOMMENDATIONS: 1. Continue BiPAP and wean FiO2 as tolerated to maintain saturations at or above 90%. 2. Continue Decadron to complete 10-day treatment course. 3. Continue Lovenox twice daily. 4. Encourage incentive spirometer use and mobilize patient as tolerated. 5. Awake prone positioning was encouraged. 6. Continue baricitinib per ID recommendations. 7. Utilize Lasix as needed to maintain euvolemic state. Dose Lasix today 8. Consider control transfer to the intensive care unit IMPRESSIONS: 1. Acute hypoxemic respiratory failure secondary to COVID-19 pneumonia The patient presented to the hospital with progressive dyspnea and hypoxemia. His symptoms began at the end of March and the patient subsequently tested positive for Covid on April 10. From my perspective, the patient is currently outside of the window to administer remdesivir. Recommend continuing Decadron to complete 10-day treatment course. In addition, Lovenox twice daily will be continued. Utilize as needed Lasix to maintain euvolemic state. Wean oxygen to maintain saturations at or above 90%. Encourage incentive spirometer use and mobilize patient as tolerated. Continue baricitinib per ID recommendations. No indications for cessation of medications based on laboratory testing. Patient has been on BiPAP for 3 days with little tolerance for breaks. Consider transfer to the intensive care unit as intubation may be required. Initial infectious work-up has been unremarkable for superinfection with bacteria. 2. Obesity/hypothyroidism/diabetes mellitus/hyperlipidemia Complicates care, management, recovery and prognosis. Continue home medications as indicated. Lantus will be increased. This note was generated with [employer] dictation software. It may contain incorrect words, spelling, and punctuation that were not noted in checking the note before signing. Subjective Subjective Patient did okay overnight. Patient remains on BiPAP therapy. Patient is not reporting any significant breaks. Patient subjectively feels unchanged compared to previous. Patient does not report being out of bed for significant time since yesterday. Objective Data Objective Data Vital Signs: Vital Signs Temp Pulse Resp BP Pulse Ox 36.6 C 79 32 H 103/60 92 04/20/21 08:40 04/20/21 13:25 04/20/21 13:25 04/20/21 08:40 04/20/21 13:25 Oxygen Flow Rate (L/min) 15 Oxygen Delivery Method Bi-pap Weight: 141.7 kg Body Mass Index (BMI) 44.8 Intake & Output: Intake and Output for Last 24 Hours 04/18/21 04/19/21 04/20/21 23:59 23:59 23:59 Intake Total 370 / 370 500 / 500 Output Total 1300 / 1300 2250 / 2250 475 / 475 Balance -930 / -930 -1750 / -1750 -475 / -475 Lab / Micro Data Result Diagrams: 04/20/21 08:08 04/20/21 07:25 Labs: Laboratory Results - last 24 hr 04/19/21 17:15: POC Glucose 253 H 04/19/21 21:19: POC Glucose 229 H 04/20/21 07:25: Sodium 134 L, Potassium 4.9, Chloride 103, Carbon Dioxide 24.0, Anion Gap 7, BUN 30 H, Creatinine 0.74, Estim Creat Clear Calc 116.46, Est GFR (MDRD) Af Amer 142, Est GFR (MDRD) Non-Af 117, BUN/Creatinine Ratio 40.8 H, Glucose 143 H, Calcium 8.6, Total Bilirubin 0.70, AST 66 H, ALT 31, Alkaline Phosphatase 101, Total Protein 6.9, Albumin 1.7 L, Globulin 5.2 H, Albumin/Globulin Ratio 0.3 L 04/20/21 08:08: WBC 9.2, RBC 6.13, Hgb 16.7 H, Hct 53.8, MCV 87.8, MCH 27.2, MCHC 31.0 L, RDW Std Deviation 49.5 H, RDW Coeff of Renato 15.4 H, Plt Count 281, MPV 10.6, Immature Gran % (Auto) 0.900, Neut % (Auto) 86.5 H, Lymph % (Auto) 8.9 L, Iron % (Auto) 3.5, Eos % (Auto) 0.1, Baso % (Auto) 0.1, Absolute Neuts (auto) 8.0 H, Absolute Lymphs (auto) 0.82 L, Nucleated RBC % 0 04/20/21 08:52: POC Glucose 153 H 04/20/21 12:06: POC Glucose 236 H Micro: Microbiology 04/14/21 17:20 Blood Culture (Wb) - Anticubital Left Blood Culture - Final No growth in 5 days. 04/14/21 17:15 Blood Culture (Wb) - Arm Left Blood Culture - Final No growth in 5 days. Rhythm Strip Rhythm Strip: Sinus Tach Rate: 104 Ectopy: None Physical Exam Const alert General Appearance: cooperative, well developed and on BiPAP Nutritional Appearance: morbidly obese HEENT normocephalic, head/scalp atraumatic and moist oral mucous membranes Eyes EOMs intact bilaterally and conjunctivae normal Neck supple General: trachea midline Chest inspection of chest normal Chest: symmetrical chest wall rise; Negative for crepitus Resp Effort and Inspection: tachypneic Auscultation: diminished lung sounds; Negative for rales, rhonchi or wheezes Cardio regular rate, regular rhythm, S1 normal heart sound, S2 normal heart sound, no murmurs, no rub and no gallops GI normal to inspection, nondistended, normoactive bowel sounds GI Narrative: Significant abdominal obesity Extremity no clubbing, cyanosis or edema Skin no rashes or lesions noted Neuro CN's II-XII intact bilaterally and no focal motor deficits Psych cooperative and affect normal Charges/Coding Visit Charges Inpatient E&M: 56429 Subs Hosp L3
--- NOTE | 2021-04-20 15:22 | PCM.PN.ID ---
Physical Exam Narrative Feeling a little better, no sputum, no n/v/d. Const alert General Appearance: cooperative Resp clear to auscultation bilaterally Auscultation: diminished lung sounds Cardio regular rate and regular rhythm GI normal to inspection, nondistended, normoactive bowel sounds ID ID: Route of nutrition/ use of supplements: [] Nutritional Intake: [] IV Site: [] Briseno Catheter: [] Assessment & Plan Assessment/Plan (1) Acute respiratory failure with hypoxia: (2) COVID-19: PLAN: Sx started 04/05/21. Unvaccinated. Family at home also with covid, but vaccinated and improving. On dex, did not qualify for remdesivir due to timing. Plan on 20 days of quarantine. With rapidly worsening hypoxia, started baricitinib for 14 day course or to stop at time of discharge. Will follow
[2021-04-20 17:40] LABS: Bedside Glucose 285 mg/dL (70-110)
--- NOTE | 2021-04-20 18:12 | PN.HOSP_ITS ---
Subjective Subjective Tolerating BiPAP, but does not feeling short of breath. Objective Data Objective Data Vital Signs: Vital Signs Temp Pulse Resp BP Pulse Ox 36.6 C 81 24 H 110/61 93 04/20/21 14:00 04/20/21 15:52 04/20/21 15:52 04/20/21 14:00 04/20/21 15:52 Oxygen Flow Rate (L/min) 15 Oxygen Delivery Method Bi-pap Weight: 141.7 kg Body Mass Index (BMI) 44.8 Intake & Output: Intake and Output for Last 24 Hours 04/18/21 04/19/21 04/20/21 23:59 23:59 23:59 Intake Total 370 / 370 500 / 500 Output Total 1300 / 1300 2250 / 2250 475 / 475 Balance -930 / -930 -1750 / -1750 -475 / -475 Lab / Micro Data Result Diagrams: 04/20/21 08:08 04/20/21 07:25 Labs: Laboratory Results - last 24 hr 04/19/21 17:15: POC Glucose 253 H 04/19/21 21:19: POC Glucose 229 H 04/20/21 07:25: Sodium 134 L, Potassium 4.9, Chloride 103, Carbon Dioxide 24.0, Anion Gap 7, BUN 30 H, Creatinine 0.74, Estim Creat Clear Calc 116.46, Est GFR (MDRD) Af Amer 142, Est GFR (MDRD) Non-Af 117, BUN/Creatinine Ratio 40.8 H, Glucose 143 H, Calcium 8.6, Total Bilirubin 0.70, AST 66 H, ALT 31, Alkaline Phosphatase 101, Total Protein 6.9, Albumin 1.7 L, Globulin 5.2 H, Album in/Globulin Ratio 0.3 L 04/20/21 08:08: WBC 9.2, RBC 6.13, Hgb 16.7 H, Hct 53.8, MCV 87.8, MCH 27.2, MCHC 31.0 L, RDW Std Deviation 49.5 H, RDW Coeff of Renato 15.4 H, Plt Count 281, MPV 10.6, Immature Gran % (Auto) 0.900, Neut % (Auto) 86.5 H, Lymph % (Auto) 8.9 L, [place] % (Auto) 3.5, Eos % (Auto) 0.1, Baso % (Auto) 0.1, Absolute Neuts (auto) 8.0 H, Absolute Lymphs (auto) 0.82 L, Nucleated RBC % 0 04/20/21 08:52: POC Glucose 153 H 04/20/21 12:06: POC Glucose 236 H 04/20/21 17:33: POC Glucose 285 H Micro: Microbiology 04/14/21 17:20 Blood Culture (Wb) - Anticubital Left Blood Culture - Final No growth in 5 days. 04/14/21 17:15 Blood Culture (Wb) - Arm Left Blood Culture - Final No growth in 5 days. Rhythm Strip Rhythm Strip: Sinus Tach Rate: 104 Ectopy: None Physical Exam Const alert Constitutional Narrative: lying on right side on BiPAP Resp Resp Narrative: coarse breath sounds bilaterally. Cardio regular rate, regular rhythm, S1 normal heart sound and S2 normal heart sound GI normal to inspection, nondistended, normoactive bowel sounds, soft to palpation, non-tender and non-distended GI Narrative: obese Extremity normal to inspection and no clubbing, cyanosis or edema Skin no rashes or lesions noted Assessment & Plan Assessment/Plan (1) Acute respiratory failure with hypoxia: (2) COVID-19: PLAN: #Acute hypoxic respiratory failure due to COVID 19 infection * remains on BIPAP at 75% FiO2 * on decadron * pulmonology and ID on board * on Baricitinib for a 14 day course, as ordered per ID, started on 04/17 and did continue through the . Of note, does not show on the physician MAR. * on breathing treatment with bronchodilators * titrate oxygen to maintain sats >90% * Onset of symptoms on April 05. * Patient is unvaccinated #Elevated D dimer: CTA negative for PE. #Hypertension * metoprolol held as BP is running in the 90s/ #Diabetes mellitus * metformin on hold. ISS. Accuchecks ACHS #Hypothyroidism; on synthroid #History of ZOEY * doesnt use his CPAP machine * to follow up with pulmonology on outpatient basis DVT prophylaxis: lovenox sc 40mg bid Prognosis: Guarded CODE STATUS: Addressed with the patient. Patient wishes to be full CODE STATUS. Order placed. Charges/Coding Visit Charges Inpatient E&M: 38145 Subs Hosp L2
[2021-04-20] MEDS: Pravastatin 40 MG Tablet PO (21:08)
[2021-04-20 21:46] LABS: Bedside Glucose 243 mg/dL (70-110)
[2021-04-21] VITALS (31 sets, daily range): BP systolic 87–127; BP diastolic 60–97; PULSE 71–107; RESP 11–30; TEMP 36.4–37.4; O2SAT 58–96
[2021-04-21 06:47] LABS: Absolute Lymphocyte Count 0.45 X10^3/uL (0.83-4.51); Absolute Neutrophil Count 9.1 X10^3/uL (2.0-7.7); Basophil# 0.01 X10^3/uL; Basophil% 0.1 % (0-1); Eosinophil# 0.08 X10^3/uL; Eosinophils% 0.8 % (0-5); Hemoglobin 17.4 g/dL (13.0-16.5); Lymphocyte # 0.45 X10^3/ul (0.83-4.51); Lymphocyte % 4.6 % (19-41); Mean Corp Hgb Conc 30.6 g/dL (32-36); Mean Corpuscular Hgb 26.8 pg (27.0-32.0); Mean Corpuscular Volume 87.5 fL (80-94); Mean Platelet Vol. 10.3 fl (6.2-12.0); Monocyte# 0.16 X10^3/uL; Monocyte% 1.6 % (0-10); NRBC Flagged by Analyzer 0 % (0-5); Neutrophil # 9.07 X10^3/uL (2.7-7.7); Neutrophil % 92.3 % (47-70); POSITIVE DIFFERENTIAL YES; Platelet Count 331 K/mm3 (150-450); RBC Distribution Width CV 15.5 % (11.6-14.6); RBC Distribution Width SD 48.9 fl (35.1-43.9); Red Blood Count 6.49 M/mm3 (4.6-6.2); White Blood Count 9.8 K/mm3 (4.4-11.0)
[2021-04-21 07:19] LABS: Differential Indicated SCAN CRITERIA MET; Hematocrit 56.8 % (40-54)
[2021-04-21 07:27] LABS: ALB/GLOB Ratio 0.4 RATIO (0.9-2.4); AST(SGOT) 47 U/L (15-37); Alanine Aminotransfer ALT/SGPT 36 U/L (16-61); Albumin, Serum 2.1 g/dL (3.2-5.0); Alkaline Phosphatase 109 U/L (45-117); Anion Gap 4 (5-15); BUN 23 mg/dL (7-18); BUN/Creat Ratio 22.5 RATIO (10-20); Calcium,Total 9.1 mg/dL (8.5-10.1); Chloride 100 mmol/L (98-107); Creatinine, Serum 1.02 mg/dL (0.70-1.30); EST Glomerular Filtration Rate 80 mL/min (>60); Est Glom Filt Rate - Afr Amer 97 mL/min (>60); Estimated Creatinine Clearance 84.49 ml/min; Glucose 174 mg/dL (74-106); Potassium 4.4 mmol/L (3.5-5.1); Protein, Total 7.1 g/dL (6.4-8.2); Sodium Level 138 mmol/L (136-145)
[2021-04-21] MEDS: Enoxaparin 40 MG/0.4 ML Syringe SC ×2 (10:43→21:14)
[2021-04-21] MEDS: Multivitamins,Therapeutic Tablet 1 TABLET PO (10:44)
[2021-04-21] MEDS: Levothyroxine 50 MCG Tablet PO (10:44)
[2021-04-21] MEDS: dexAMETHasone 2 MG TABLET 6 MG PO (10:44)
[2021-04-21] MEDS: Aspirin 81 MG TAB.CHEW PO (10:44)
[2021-04-21] MEDS: Metoprolol Tartrate 50 MG Tablet PO (10:45)
[2021-04-21 11:11] LABS: Bedside Glucose 229 mg/dL (70-110)
--- NOTE | 2021-04-21 12:37 | PN.HOSP_ITS ---
Subjective Subjective increased FiO2 overnight with BiPAP. Objective Data Objective Data Vital Signs: Vital Signs Temp Pulse Resp BP Pulse Ox 36.6 C 107 H 20 H 120/66 92 04/21/21 10:49 04/21/21 10:49 04/21/21 10:49 04/21/21 10:49 04/21/21 10:49 Oxygen Flow Rate (L/min) 15 Oxygen Delivery Method Bi-pap Weight: 141.7 kg Body Mass Index (BMI) 44.8 Intake & Output: Intake and Output for Last 24 Hours 04/19/21 04/20/21 04/21/21 23:59 23:59 23:59 Intake Total 500 / 500 120 / 120 Output Total 2250 / 2250 475 / 775 700 / 700 Balance -1750 / -1750 -475 / -655 -580 / -580 Lab / Micro Data Result Diagrams: 04/21/21 06:40 04/21/21 06:40 Labs: Laboratory Results - last 24 hr 04/20/21 17:33: POC Glucose 285 H 04/20/21 21:07: POC Glucose 243 H 04/21/21 06:40: WBC 9.8, RBC 6.49 H, Hgb 17.4 H, Hct 56.8 H, MCV 87.5, MCH 26.8 L, MCHC 30.6 L, RDW Std Deviation 48.9 H, RDW Coeff of Renato 15.5 H, Plt Count 331, MPV 10.3, Immature Gran % (Auto) 0.600, Neut % (Auto) 92.3 H, Lymph % (Auto) 4.6 L, [place] % (Auto) 1.6, Eos % (Auto) 0.8, Baso % (Auto) 0.1, Absolute Neuts (auto) 9.1 H, Absolute Lymphs (auto) 0.45 L, Nucleated RBC % 0, Differential Comment COMMENT 04/21/21 06:40: Sodium 138, Potassium 4.4, Chloride 100, Carbon Dioxide 34.0 H, Anion Gap 4 L, BUN 23 H, Creatinine 1.02, Estim Creat Clear Calc 84.49, Est GFR (MDRD) Af Amer 97, Est GFR (MDRD) Non-Af 80, BUN/Creatinine Ratio 22.5 H, Glucose 174 H, Calcium 9.1, Total Bilirubin 0.90, AST 47 H, ALT 36, Alkaline Phosphatase 109, Total Protein 7.1, Albumin 2.1 L, Globulin 5.0 H, Albumin/Globulin Ratio 0.4 L 04/21/21 10:41: POC Glucose 229 H Micro: Microbiology 04/14/21 17:20 Blood Culture (Wb) - Anticubital Left Blood Culture - Final No growth in 5 days. 04/14/21 17:15 Blood Culture (Wb) - Arm Left Blood Culture - Final No growth in 5 days. Rhythm Strip Rhythm Strip: Sinus Tach Rate: 104 Ectopy: None Physical Exam Const alert Neck no lymphadenopathy Resp normal respiratory effort, no retractions, no use of accessory muscles and clear to auscultation bilaterally Cardio regular rate, regular rhythm, S1 normal heart sound and S2 normal heart sound GI normal to inspection, nondistended, normoactive bowel sounds, soft to palpation, non-tender and non-distended Neuro Sensorium / Orientation: awake Assessment & Plan Assessment/Plan (1) Acute respiratory failure with hypoxia: (2) COVID-19: PLAN: #Acute hypoxic respiratory failure due to COVID 19 infection * remains on BIPAP at 90% FiO2 * on decadron * pulmonology and ID on board * on Baricitinib for a 14 day course, as ordered per ID, started on 04/17 and did continue through the . Of note, does not show on the physician MAR. * on breathing treatment with bronchodilators * titrate oxygen to maintain sats >90% * Onset of symptoms on April 05. * Patient is unvaccinated * Transfer to ICU #Elevated D dimer: CTA negative for PE. #Hypertension * metoprolol held as BP is running in the 90s/ #Diabetes mellitus * metformin on hold. ISS. Accuchecks ACHS #Hypothyroidism; on synthroid #History of ZOEY * doesnt use his CPAP machine * to follow up with pulmonology on outpatient basis DVT prophylaxis: lovenox sc 40mg bid Prognosis: Guarded CODE STATUS: Addressed with the patient. Patient wishes to be full CODE STATUS. Order placed. Charges/Coding Visit Charges Inpatient E&M: 98295 Subs Hosp L2
[2021-04-21] MEDS: Etomidate 20 MG/10 ML Vial IV (13:20)
[2021-04-21] MEDS: Midazolam 5 MG/ML Syringe 4 MG IV (13:23)
[2021-04-21] MEDS: Propofol 10MG/Ml 1,000 MG/100 ML Bottle 8.5 MG CONT INF (13:25)
--- NOTE | 2021-04-21 13:33 | PCS.PANDOC ---
PANDEMIC DOCUMENTATION INITIATED: Date: 03/23/2021 Time: 190
--- NOTE | 2021-04-21 13:36 | RAD_ITS ---
STUDY: X-RAY CHEST REASON FOR EXAM: Male, 55 years old. ETT tube, OG placement TECHNIQUE: Single AP portable view of the chest. COMPARISON: None. FINDINGS: An endotracheal tube has been placed. The tip is at 4.8 cm proximal to the [place]. An orogastric tube is seen with the tip below the left hemidiaphragm. EKG electrodes are seen. There is evidence of diffuse bilateral airspace disease in keeping with bilateral pneumonias. There is no demonstrated pleural abnormality. Sternal cerclage wires and vascular clips are present from a prior sternotomy and coronary artery bypass graft procedure (CABG). Normal mediastinum and ken. Normal visualized pulmonary arteries. Normal visualized aortic arch and descending thoracic aorta. Normal visualized thoracic spine. Normal visualized ribs, clavicles, and shoulders. There is no demonstrated abnormality of the visualized soft tissue structures of the upper abdomen. RAD/CXR for Line Placement IMPRESSION: Diffuse bilateral airspace disease with bilateral pneumonia. The tip of the endotracheal tube is at 4.8 cm proximal to the medina. Electronically Signed: Leonardo Sheppard MD at 14:02 EDT , Service support ,
--- NOTE | 2021-04-21 13:46 | PN.CC_ITS ---
Assessment & Plan Assessment/Plan (1) Acute respiratory failure with hypoxia: (2) COVID-19: PLAN: RECOMMENDATIONS: 1. Continue APRV and wean FiO2 as tolerated to maintain saturations at or above 90%. 2. Continue Decadron to complete 10-day treatment course (04/25/2021) 3. Continue Lovenox twice daily. 4. Encourage incentive spirometer use and mobilize patient as tolerated. 5. We will hold on prone positioning for now given abdominal obesity 6. Continue baricitinib per ID recommendations. 7. Utilize Lasix as needed to maintain euvolemic state. Dose Lasix today 8. Consider control transfer to the intensive care unit IMPRESSIONS: 1. Acute hypoxemic respiratory failure secondary to ARDS secondary to COVID- 19 pneumonia The patient presented to the hospital with progressive dyspnea and hypoxemia. His symptoms began at the end of March and the patient subsequently tested positive for Covid on April 10. From my perspective, the patient is currently outside of the window to administer remdesivir. Recommend continuing Decadron to complete 10-day treatment course. Patient failed BiPAP therapy and was subsequently intubated on 04/21/2021. Patient will be continued on CARLA inhibitor per infectious disease. We will continue with Decadron therapy. Diuretics will be given as able. Patient currently on APRV. Wean FiO2 and T high as tolerated. 2. Obesity/hypothyroidism/diabetes mellitus/hyperlipidemia Complicates care, management, recovery and prognosis. Continue home medications as indicated. Lantus will be increased. TIME: 45 minutes critical care time spent addressing patient's acute hypoxic respiratory failure, diabetes mellitus, review of all data and collaboration with care team (12:45 PM to 1:50 PM) Subjective Subjective Patient transferred to the intensive care unit for closer monitoring. Following movement to the ICU bed, patient started to become hypoxic. Patient was placed on BiPAP with attempts to recover on 100% FiO2. Saturations remained in the mid 80s. Given patient's CODE STATUS, patient was emergently intubated. Objective Data Objective Data Intubation Patient saturating in the mid 80s despite 100% FiO2 on BiPAP therapy. Patient was given etomidate, but still had significant jaw tone. Patient was then given 4 mg of Versed and 100 of succinylcholine. Cords were visualized with a grade 3 view using a MAC 3 glide scope. Significant coffee-ground debris noted in the posterior pharynx. A 7.5 endotracheal tube was inserted to 24 cm at the lips on the first attempt. An OG was placed using direct visualization with the glide scope. Bilateral breath sounds, positive color change and visualization going through the cords was used for confirmation of the endotracheal tube. Air bubble and direct visualization was used for placement of the OG. Both were confirmed with a chest x-ray showing a slightly high endotracheal tube and significant bilateral infiltrates. This was subsequently moved in 1 cm. No repeat chest x-ray was obtained. Patient continued to be hypoxic, so was transitioned from assist control with a PEEP of 12 to APRV with a P high of 26 and 100% FiO2. Vital Signs: Vital Signs Temp Pulse Resp BP Pulse Ox 36.6 C 102 H 20 H 127/97 H 63 04/21/21 10:49 04/21/21 13:33 04/21/21 13:33 04/21/21 13:33 04/21/21 13:33 Oxygen Flow Rate (L/min) 15 Oxygen Delivery Method Mechanical Ventilator Weight: 141.7 kg Body Mass Index (BMI) 44.8 Intake & Output: Intake and Output for Last 24 Hours 04/19/21 04/20/21 04/21/21 23:59 23:59 23:59 Intake Total 500 / 500 120 / 120 Output Total 2250 / 2250 475 / 775 700 / 700 Balance -1750 / -1750 -475 / -655 -580 / -580 Lab / Micro Data Result Diagrams: 04/21/21 06:40 04/21/21 06:40 Labs: Laboratory Results - last 24 hr 04/20/21 17:33: POC Glucose 285 H 04/20/21 21:07: POC Glucose 243 H 04/21/21 06:40: WBC 9.8, RBC 6.49 H, Hgb 17.4 H, Hct 56.8 H, MCV 87.5, MCH 26.8 L, MCHC 30.6 L, RDW Std Deviation 48.9 H, RDW Coeff of Renato 15.5 H, Plt Count 331, MPV 10.3, Immature Gran % (Auto) 0.600, Neut % (Auto) 92.3 H, Lymph % (Auto ) 4.6 L, [place] % (Auto) 1.6, Eos % (Auto) 0.8, Baso % (Auto) 0.1, Absolute Neuts (auto) 9.1 H, Absolute Lymphs (auto) 0.45 L, Nucleated RBC % 0, Differential Comment COMMENT 04/21/21 06:40: Sodium 138, Potassium 4.4, Chloride 100, Carbon Dioxide 34.0 H, Anion Gap 4 L, BUN 23 H, Creatinine 1.02, Estim Creat Clear Calc 84.49, Est GFR (MDRD) Af Amer 97, Est GFR (MDRD) Non-Af 80, BUN/Creatinine Ratio 22.5 H, Glucose 174 H, Calcium 9.1, Total Bilirubin 0.90, AST 47 H, ALT 36, Alkaline Phosphatase 109, Total Protein 7.1, Albumin 2.1 L, Globulin 5.0 H, Albumin/Globulin Ratio 0.4 L 04/21/21 10:41: POC Glucose 229 H Micro: Microbiology 04/14/21 17:20 Blood Culture (Wb) - Anticubital Left Blood Culture - Final No growth in 5 days. 04/14/21 17:15 Blood Culture (Wb) - Arm Left Blood Culture - Final No growth in 5 days. Rhythm Strip Rhythm Strip: Sinus Tach Rate: 104 Ectopy: None Physical Exam Const General Appearance: well developed, lethargic, intubated and patient mechanically ventilated Nutritional Appearance: morbidly obese HEENT normocephalic, head/scalp atraumatic and moist oral mucous membranes Eyes EOMs intact bilaterally and conjunctivae normal Neck supple General: trachea midline Chest inspection of chest normal Chest: symmetrical chest wall rise; Negative for crepitus Resp Effort and Inspection: tachypneic Auscultation: rales diffuse and diminished lung sounds; Negative for rhonchi or wheezes Cardio regular rate, regular rhythm, S1 normal heart sound, S2 normal heart sound, no murmurs, no rub and no gallops GI normal to inspection, nondistended, normoactive bowel sounds GI Narrative: Significant abdominal obesity Extremity no clubbing, cyanosis or edema Skin no rashes or lesions noted Neuro CN's II-XII intact bilaterally and no focal motor deficits Psych cooperative and affect normal Charges/Coding Procedures Hospitalists Procedures: [id number] Critial Care 1st Hr
--- NOTE | 2021-04-21 13:48 | CPS ---
advanced ET to [address] Escobar
--- NOTE | 2021-04-21 13:55 | NURSING ---
propofol increased to 20 mcg/kg/min and fentanyl increased to 150 mcg/hr per Dr. Shawn miguel.
[2021-04-21 15:25] LABS: Allen Test Positive; Base Excess 4 mmol/L (-2 to +2); Bicarbonate 30.6 mmol/L (22-26); Blood Gas Specimen Type ART; FI02 100; Mode BiLevel; O2 Delivery Device Adult Vent; PO2 63 mmHG (75-100); RR 12; SITE L Radial; SO2 88 % (95-99); Total Carbon Dioxide 33 mmol/L; pCO2 65.2 mmHg (35-45); pH 7.28 (7.35-7.45)
[2021-04-21] MEDS: Furosemide 40 MG/4 ML Vial IV (16:55)
[2021-04-21] MEDS: Insulin Lispro 100 UNIT/ML INSULN.PEN SC ×2 (18:21→21:14)
[2021-04-21 18:26] LABS: Bedside Glucose 283 mg/dL (70-110)
[2021-04-21 18:32] LABS: CPK Total, Creatine Kinase 43 U/L (39-308); Triglycerides 176 mg/dL
[2021-04-21] MEDS: Propofol 10MG/Ml 1,000 MG/100 ML Bottle 25.5 MG CONT INF (19:00)
[2021-04-21] MEDS: Metoprolol Tartrate 50 MG Tablet GT (21:17)
[2021-04-21 22:21] LABS: Bedside Glucose 294 mg/dL (70-110)
[2021-04-22] VITALS (35 sets, daily range): BP systolic 83–113; BP diastolic 60–74; PULSE 74–98; RESP 11–24; TEMP 36.9–38.1; O2SAT 86–92
[2021-04-22] MEDS: Propofol 10MG/Ml 1,000 MG/100 ML Bottle 17 MG CONT INF ×5 (00:41→23:00)
[2021-04-22 04:47] LABS: Anion Gap 4 (5-15); BUN 45 mg/dL (7-18); BUN/Creat Ratio 21.5 RATIO (10-20); Calcium,Total 8.8 mg/dL (8.5-10.1); Chloride 100 mmol/L (98-107); Creatinine, Serum 2.09 mg/dL (0.70-1.30); EST Glomerular Filtration Rate 35 mL/min (>60); Est Glom Filt Rate - Afr Amer 43 mL/min (>60); Estimated Creatinine Clearance 41.23 ml/min; Glucose 218 mg/dL (74-106); Potassium 5.3 mmol/L (3.5-5.1); Sodium Level 137 mmol/L (136-145)
[2021-04-22 06:35] LABS: Absolute Lymphocyte Count 0.38 X10^3/uL (0.83-4.51); Absolute Neutrophil Count 9.8 X10^3/uL (2.0-7.7); Basophil# 0.02 X10^3/uL; Basophil% 0.2 % (0-1); Eosinophil# 0.03 X10^3/uL; Eosinophils% 0.3 % (0-5); Hematocrit 53.4 % (40-54); Hemoglobin 16.2 g/dL (13.0-16.5); Lymphocyte # 0.38 X10^3/ul (0.83-4.51); Lymphocyte % 3.6 % (19-41); Mean Corp Hgb Conc 30.3 g/dL (32-36); Mean Corpuscular Hgb 26.9 pg (27.0-32.0); Mean Corpuscular Volume 88.7 fL (80-94); Mean Platelet Vol. 11.6 fl (6.2-12.0); Monocyte# 0.21 X10^3/uL; NRBC Flagged by Analyzer 0 % (0-5); Neutrophil # 9.78 X10^3/uL (2.7-7.7); Neutrophil % 93.2 % (47-70); POSITIVE DIFFERENTIAL YES; Platelet Count 369 K/mm3 (150-450); RBC Distribution Width CV 15.9 % (11.6-14.6); RBC Distribution Width SD 51.3 fl (35.1-43.9); Red Blood Count 6.02 M/mm3 (4.6-6.2); White Blood Count 10.5 K/mm3 (4.4-11.0)
[2021-04-22 06:41] LABS: Differential Indicated SCAN CRITERIA MET
[2021-04-22 07:04] LABS: Differential Comment SCANNED
[2021-04-22 07:05] LABS: Allen Test POS; Blood Gas Specimen Type ART; SITE R RADIAL
[2021-04-22 07:06] LABS: O2 Delivery Device Adult Vent
[2021-04-22 07:07] LABS: Mode APRV; RR 12; T HIGH 4.5; T LOW 0.5
[2021-04-22 07:08] LABS: Base Excess 5 mmol/L (-2 to +2); Bicarbonate 31.3 mmol/L (22-26); PO2 56 mmHG (75-100); SO2 85 % (95-99); Total Carbon Dioxide 33 mmol/L; pCO2 61.6 mmHg (35-45); pH 7.31 (7.35-7.45)
--- NOTE | 2021-04-22 07:30 | PN.CC_ITS ---
Assessment & Plan Assessment/Plan (1) Acute respiratory failure with hypoxia: (2) COVID-19: PLAN: RECOMMENDATIONS: 1. Continue APRV and wean FiO2 as tolerated to maintain saturations at or above 90%. 2. Continue Decadron to complete 10-day treatment course (04/25/2021) 3. Will increase to therapeutic anticoagulation empirically 4. Encourage incentive spirometer use and mobilize patient as tolerated. 5. We will hold on prone positioning for now given abdominal obesity 6. Continue baricitinib per ID recommendations. 7. Utilize Lasix as needed to maintain euvolemic state. No dose of Lasix today IMPRESSIONS: 1. Acute hypoxemic respiratory failure secondary to ARDS secondary to COVID- 19 pneumonia The patient presented to the hospital with progressive dyspnea and hypoxemia. His symptoms began at the end of March and the patient subsequently tested positive for Covid on April 10. From my perspective, the patient is currently outside of the window to administer remdesivir. Recommend continuing Decadron to complete 10-day treatment course. Patient failed BiPAP therapy and was subsequently intubated on 04/21/2021. Patient will be continued on CARLA inhibitor per infectious disease. We will continue with Decadron therapy. Patient currently on maximum APRV and still with marginal saturations. Will in crease to therapeutic dose Lovenox empirically, but grim prognosis overall. Will call family to be at the bedside. 2. Obesity/hypothyroidism/diabetes mellitus/hyperlipidemia Complicates care, management, recovery and prognosis. Continue home medications as indicated. Lantus will be increased. TIME: 35 minutes critical care time spent addressing patient's acute hypoxic respiratory failure, diabetes mellitus, review of all data and collaboration with care team (6:15 AM to 7:15 AM) Subjective Subjective Patient is relatively unchanged overnight. Patient is on maximal vent settings, but has been saturating in the mid to upper 80s for most of the evening. ABG showed adequate ventilation this morning. Respiratory is reporting very little secretions at this time. Objective Data Objective Data Vital Signs: Vital Signs Temp Pulse Resp BP Pulse Ox 36.9 C 92 24 H 95/66 88 04/22/21 07:00 04/22/21 07:24 04/22/21 07:24 04/22/21 07:00 04/22/21 07:24 Oxygen Flow Rate (L/min) 15 Oxygen Delivery Method Mechanical Ventilator Weight: 132.3 kg Body Mass Index (BMI) 44.8 Intake & Output: Intake and Output for Last 24 Hours 04/20/21 04/21/21 04/22/21 23:59 23:59 23:59 Intake Total 550.58 / 572.58 196.35 / 196.35 Output Total 475 / 775 1100 / 1100 Balance -475 / -655 -549.42 / -527.42 196.35 / 196.35 Lab / Micro Data Result Diagrams: 04/22/21 04:00 04/22/21 04:00 Labs: Laboratory Results - last 24 hr 04/21/21 06:40: Total Creatine Kinase 43, Triglycerides 176 04/21/21 10:41: POC Glucose 229 H 04/21/21 18:20: POC Glucose 283 H 04/21/21 21:13: POC Glucose 294 H 04/22/21 04:00: WBC 10.5, RBC 6.02, Hgb 16.2, Hct 53.4, MCV 88.7, MCH 26.9 L, MCHC 30.3 L, RDW Std Deviation 51.3 H, RDW Coeff of Renato 15.9 H, Plt Count 369, MPV 11.6, Immature Gran % (Auto) 0.700, Neut % (Auto) 93.2 H, Lymph % (Auto) 3.6 L, [place] % (Auto) 2.0, Eos % (Auto) 0.3, Baso % (Auto) 0.2, Absolute Neuts (auto) 9.8 H, Absolute Lymphs (auto) 0.38 L, Nucleated RBC % 0, Differential Comment SCANNED 04/22/21 04:00: Sodium 137, Potassium 5.3 H, Chloride 100, Carbon Dioxide 33.0 H , Anion Gap 4 L, BUN 45 H, Creatinine 2.09 H, Estim Creat Clear Calc 41.23, Est GFR (MDRD) Af Amer 43 L, Est GFR (MDRD) Non-Af 35 L, BUN/Creatinine Ratio 21.5 H , Glucose 218 H, Calcium 8.8 Micro: Microbiology 04/21/21 13:14 Sputum, Induced/Lukens Gram Stain - Final 04/14/21 17:20 Blood Culture (Wb) - Anticubital Left Blood Culture - Final No growth in 5 days. 04/14/21 17:15 Blood Culture (Wb) - Arm Left Blood Culture - Final No growth in 5 days. ABG Data ABG results: ABG 04/21/21 04/22/21 14:59 05:34 Specimen Type ART ART Sample Site L Radial R RADIAL pH 7.28 L 7.31 L Bicarbonate Actual 30.6 H 31.3 H Total CO2 33 33 Base Excess 4 H 5 H O2 Saturation 88 L 85 L O2 % 100 ABG pCO2 65.2 H 61.6 H ABG pO2 63 L 56 L Vasquez Test Positive POS Respiration Rate 12 12 O2 Delivery Device Adult Vent Adult Vent Vent Mode BiLevel APRV Pressure High 28.0 Pressure Low 0.0 Time High 4.5 Time Low 0.5 Blood Gas Notified Whom Dr. Escobar Clinical Comments PH26 PL0 TH4.5 TL0.5 Radiography Diagnostic Testing: Radiology Impression Chest X-Ray 04/21/21 13:36 IMPRESSION: Diffuse bilateral airspace disease with bilateral pneumonia. The tip of the endotracheal tube is at 4.8 cm proximal to the medina. Electronically Signed: Leonardo Sheppard MD at 14:02 EDT , Service support , Rhythm Strip Rhythm Strip: Sinus Tach Rate: 104 Ectopy: None Physical Exam Const General Appearance: well developed, lethargic, intubated and patient mechanically ventilated Nutritional Appearance: morbidly obese HEENT normocephalic, head/scalp atraumatic and moist oral mucous membranes Eyes EOMs intact bilaterally and conjunctivae normal Neck supple General: trachea midline Chest inspection of chest normal Chest: symmetrical chest wall rise; Negative for crepitus Resp Resp Narrative: No secretions noted with suctioning Effort and Inspection: tachypneic Auscultation: rales diffuse and diminished lung sounds; Negative for rhonchi or wheezes Cardio regular rate, regular rhythm, S1 normal heart sound, S2 normal heart sound, no murmurs, no rub and no gallops GI normal to inspection, nondistended, normoactive bowel sounds GI Narrative: Significant abdominal obesity Extremity no clubbing, cyanosis or edema Skin no rashes or lesions noted Neuro CN's II-XII intact bilaterally and no focal motor deficits Psych cooperative and affect normal Charges/Coding Procedures Hospitalists Procedures: [id number] Critial Care 1st Hr
[2021-04-22] MEDS: Insulin Lispro 100 UNIT/ML INSULN.PEN SC ×4 (07:54→20:26)
[2021-04-22] MEDS: Enoxaparin 120 MG/0.8 ML Syringe SC ×2 (07:54→16:42)
[2021-04-22 08:20] LABS: Bedside Glucose 193 mg/dL (70-110)
[2021-04-22] MEDS: CHLORHEXIDINE GLUC 2% CLOTH 1 EACH TOWELETTE TOPICAL (10:10)
[2021-04-22] MEDS: Polyethylene Glycol 3350 17 GM PACKET GT (10:10)
[2021-04-22] MEDS: Chlorhexidine 15 ML PO (10:10)
[2021-04-22] MEDS: dexAMETHasone 2 MG TABLET 6 MG GT (10:11)
[2021-04-22] MEDS: Senna Tablet 2 TABLET GT ×2 (10:11→20:25)
[2021-04-22] MEDS: Aspirin 81 MG TAB.CHEW GT (10:11)
[2021-04-22] MEDS: Famotidine 20 MG Tablet GT ×2 (10:12→20:25)
[2021-04-22] MEDS: Metoprolol Tartrate 50 MG Tablet GT ×2 (10:12→20:25)
[2021-04-22] MEDS: Levothyroxine 50 MCG Tablet GT (10:12)
--- NOTE | 2021-04-22 12:22 | NURSING ---
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
[2021-04-22 12:40] LABS: Bedside Glucose 220 mg/dL (70-110)
--- NOTE | 2021-04-22 13:23 | PN.HOSP_ITS ---
Subjective Subjective Intubated on 04/23. On maximum vent settings. Objective Data Objective Data Vital Signs: Vital Signs Temp Pulse Resp BP Pulse Ox 36.9 C 98 24 H 95/66 88 04/22/21 07:00 04/22/21 10:12 04/22/21 07:24 04/22/21 07:00 04/22/21 07:24 Oxygen Flow Rate (L/min) 15 Oxygen Delivery Method Mechanical Ventilator Weight: 132.3 kg Body Mass Index (BMI) 44.8 Intake & Output: Intake and Output for Last 24 Hours 04/20/21 04/21/21 04/22/21 23:59 23:59 23:59 Intake Total 550.58 / 572.58 464.63 / 464.63 Output Total 475 / 775 1100 / 1100 Balance -475 / -655 -549.42 / -527.42 464.63 / 464.63 Lab / Micro Data Result Diagrams: 04/22/21 04:00 04/22/21 04:00 Labs: Laboratory Results - last 24 hr 04/21/21 06:40: Total Creatine Kinase 43, Triglycerides 176 04/21/21 18:20: POC Glucose 283 H 04/21/21 21:13: POC Glucose 294 H 04/22/21 04:00: WBC 10.5, RBC 6.02, Hgb 16.2, Hct 53.4, MCV 88.7, MCH 26.9 L, MCHC 30.3 L, RDW Std Deviation 51.3 H, RDW Coeff of Renato 15.9 H, Plt Count 369, MPV 11.6, Immature Gran % (Auto) 0.700, Neut % (Auto) 93.2 H, Lymph % (Auto) 3.6 L, Day % (Auto) 2.0, Eos % (Auto) 0.3, Baso % (Auto) 0.2, Absolute Neuts (auto) 9.8 H, Absolute Lymphs (auto) 0.38 L, Nucleated RBC % 0, Differential Comment SCANNED 04/22/21 04:00: Sodium 137, Potassium 5.3 H, Chloride 100, Carbon Dioxide 33.0 H , Anion Gap 4 L, BUN 45 H, Creatinine 2.09 H, Estim Creat Clear Calc 41.23, Est GFR (MDRD) Af Amer 43 L, Est GFR (MDRD) Non-Af 35 L, BUN/Creatinine Ratio 21.5 H , Glucose 218 H, Calcium 8.8 04/22/21 07:49: POC Glucose 193 H 04/22/21 12:31: POC Glucose 220 H Micro: Microbiology 04/21/21 13:14 Sputum, Induced/Lukens Gram Stain - Final 04/21/21 13:14 Sputum, Induced/Lukens Respiratory Culture - Preliminary Appears to be normal respiratory roosevelt. Further studies to follow. 04/14/21 17:20 Blood Culture (Wb) - Anticubital Left Blood Culture - Final No growth in 5 days. 04/14/21 17:15 Blood Culture (Wb) - Arm Left Blood Culture - Final No growth in 5 days. ABG Data ABG results: ABG 04/21/21 04/22/21 14:59 05:34 Specimen Type ART ART Sample Site L Radial R RADIAL pH 7.28 L 7.31 L Bicarbonate Actual 30.6 H 31.3 H Total CO2 33 33 Base Excess 4 H 5 H O2 Saturation 88 L 85 L O2 % 100 ABG pCO2 65.2 H 61.6 H ABG pO2 63 L 56 L Vasquez Test Positive POS Respiration Rate 12 12 O2 Delivery Device Adult Vent Adult Vent Vent Mode BiLevel APRV Pressure High 28.0 Pressure Low 0.0 Time High 4.5 Time Low 0.5 Blood Gas Notified Whom Dr. Escobar Clinical Comments PH26 PL0 TH4.5 TL0.5 Radiography Diagnostic Testing: Radiology Impression Chest X-Ray 04/21/21 13:36 IMPRESSION: Diffuse bilateral airspace disease with bilateral pneumonia. The tip of the endotracheal tube is at 4.8 cm proximal to the medina. Electronically Signed: Leonardo Sheppard MD at 14:02 EDT , Service support , Rhythm Strip Rhythm Strip: Sinus Tach Rate: 104 Ectopy: None Physical Exam Const Constitutional Narrative: inbubated and sedated Resp normal respiratory effort and no retractions Resp Narrative: coarse breath sounds bilaterally. Cardio regular rate, regular rhythm, S1 normal heart sound and S2 normal heart sound GI normal to inspection, nondistended, normoactive bowel sounds, soft to palpation, non-tender and non-distended Assessment & Plan Assessment/Plan (1) Acute respiratory failure with hypoxia: (2) COVID-19: PLAN: #Acute hypoxic respiratory failure due to COVID 19 infection * intubated on 100% FiO2 * on decadron * pulmonology and ID on board * on Baricitinib for a 14 day course, as ordered per ID, started on 04/17 and did continue through the . * on breathing treatment with bronchodilators * titrate oxygen to maintain sats >90% * Onset of symptoms on April 05. * Patient is unvaccinated #Elevated D dimer: CTA negative for PE. switched to full-dose enoxaparin given worsening condition. #Hypertension * metoprolol held as BP is running in the 90s/ #Diabetes mellitus * metformin on hold. ISS. Accuchecks ACHS #Hypothyroidism; on synthroid #History of ZOEY * doesnt use his CPAP machine * to follow up with pulmonology on outpatient basis DVT prophylaxis: anticoagulated Prognosis: Guarded Discussed with his family at bedside including his son. Communicated with his son through either typing in taxed or dictating into his phone so that he can understand. All questions were answered. Prognosis being guarded was expressed to them as well. Greater than 35 minutes which greater than 50% of the time was discussing with the patient's family about the patient's overall prognosis and current medical treatments CODE STATUS: Addressed with the patient. Patient wishes to be full CODE STATUS. Order placed. Charges/Coding Visit Charges Inpatient E&M: 86455 Subs Hosp L3
[2021-04-22] MEDS: Vital High Protein 1,000 ML 70 ML GT (13:55)
--- NOTE | 2021-04-22 15:25 | CASEMGMT ---
Social Work SW placed call to pt significant other Kori and offered support. Kori states that pt's adult son who is disabled lives with her and pt and they are his caregivers. Son's mother has previously. Kori is aware of pt prognosis. Emotional support provided to Kori and informed her SW will be here tomorrow to meet with her and provide support when she comes in. SW to continue to follow. NAS Santiago
[2021-04-22 16:56] LABS: Bedside Glucose 261 mg/dL (70-110)
[2021-04-22 20:41] LABS: Bedside Glucose 239 mg/dL (70-110)
[2021-04-22] MEDS: Chlorhexidine 480 ML 15 ML PO (21:25)
[2021-04-23] VITALS (38 sets, daily range): BP systolic 91–112; BP diastolic 55–80; PULSE 71–98; RESP 12–31; TEMP 37.5–38.3; O2SAT 89–101
[2021-04-23] MEDS: Acetaminophen 650 MG/20 ML UDC GT (00:44)
[2021-04-23 03:33] LABS: Absolute Lymphocyte Count 0.34 X10^3/uL (0.83-4.51); Absolute Neutrophil Count 10.5 X10^3/uL (2.0-7.7); Basophil# 0.01 X10^3/uL; Basophil% 0.1 % (0-1); Eosinophil# 0.03 X10^3/uL; Eosinophils% 0.3 % (0-5); Hematocrit 51.3 % (40-54); Hemoglobin 15.7 g/dL (13.0-16.5); Lymphocyte # 0.34 X10^3/ul (0.83-4.51); Mean Corp Hgb Conc 30.6 g/dL (32-36); Mean Corpuscular Hgb 27.1 pg (27.0-32.0); Mean Corpuscular Volume 88.6 fL (80-94); Mean Platelet Vol. 11.2 fl (6.2-12.0); Monocyte# 0.21 X10^3/uL; Monocyte% 1.9 % (0-10); NRBC Flagged by Analyzer 0 % (0-5); Neutrophil # 10.47 X10^3/uL (2.7-7.7); Neutrophil % 93.9 % (47-70); POSITIVE DIFFERENTIAL YES; Platelet Count 432 K/mm3 (150-450); RBC Distribution Width CV 15.9 % (11.6-14.6); RBC Distribution Width SD 51.4 fl (35.1-43.9); Red Blood Count 5.79 M/mm3 (4.6-6.2); White Blood Count 11.2 K/mm3 (4.4-11.0)
[2021-04-23 03:42] LABS: Differential Indicated SCAN CRITERIA MET
[2021-04-23 03:57] LABS: ALB/GLOB Ratio 0.4 RATIO (0.9-2.4); AST(SGOT) 20 U/L (15-37); Alanine Aminotransfer ALT/SGPT 25 U/L (16-61); Albumin, Serum 1.9 g/dL (3.2-5.0); Alkaline Phosphatase 97 U/L (45-117); Anion Gap 7 (5-15); BUN 82 mg/dL (7-18); Calcium,Total 8.4 mg/dL (8.5-10.1); Chloride 98 mmol/L (98-107); Creatinine, Serum 3.57 mg/dL (0.70-1.30); EST Glomerular Filtration Rate 19 mL/min (>60); Est Glom Filt Rate - Afr Amer 23 mL/min (>60); Estimated Creatinine Clearance 24.14 ml/min; Globulin 5.4 g/dL (2.2-4.2); Glucose 266 mg/dL (74-106); Potassium 5.3 mmol/L (3.5-5.1); Protein, Total 7.3 g/dL (6.4-8.2); Sodium Level 135 mmol/L (136-145)
[2021-04-23 04:14] LABS: Differential Comment SCANNED
[2021-04-23] MEDS: Propofol 10MG/Ml 1,000 MG/100 ML Bottle 17 MG CONT INF ×4 (05:00→23:24)
[2021-04-23 05:11] LABS: Allen Test Positive; Base Excess 3 mmol/L (-2 to +2); Bicarbonate 29.4 mmol/L (22-26); Blood Gas Specimen Type ART; FI02 100; Mode BiLevel; O2 Delivery Device Adult Vent; PO2 79 mmHG (75-100); RR 12; SITE R Radial; SO2 94 % (95-99); Total Carbon Dioxide 31 mmol/L; pCO2 56.7 mmHg (35-45); pH 7.32 (7.35-7.45)
[2021-04-23] MEDS: Enoxaparin 120 MG/0.8 ML Syringe SC (05:55)
--- NOTE | 2021-04-23 07:36 | PN.CC_ITS ---
Assessment & Plan Assessment/Plan (1) Acute respiratory failure with hypoxia: (2) COVID-19: PLAN: RECOMMENDATIONS: 1. Continue APRV and wean FiO2 as tolerated to maintain saturations at or above 90%. 2. Continue Decadron to complete 10-day treatment course (04/25/2021) 3. Will increase to therapeutic anticoagulation empirically. This may need to be held for interventions 4. Encourage incentive spirometer use and mobilize patient as tolerated. 5. We will hold on prone positioning for now given abdominal obesity 6. Continue baricitinib per ID recommendations. 7. Utilize Lasix as needed to maintain euvolemic state. No dose of Lasix today IMPRESSIONS: 1. Acute hypoxemic respiratory failure secondary to ARDS secondary to COVID- 19 pneumonia The patient presented to the hospital with progressive dyspnea and hypox emia. His symptoms began at the end of March and the patient subsequently tested positive for Covid on April 10. From my perspective, the patient is currently outside of the window to administer remdesivir. Recommend continuing Decadron to complete 10-day treatment course. Patient failed BiPAP therapy and was subsequently intubated on 04/21/2021. Patient will be continued on CARLA inhibitor per infectious disease. We will continue with Decadron therapy. Patient currently on maximum APRV and still with marginal saturations. Patient appears to be slightly improved on therapeutic Lovenox. This may need to be held if family elects for dialysis and renal function continues to worsen. 2. Obesity/hypothyroidism/diabetes mellitus/hyperlipidemia Complicates care, management, recovery and prognosis. Continue home medications as indicated. Lantus will be increased. 3. Acute kidney injury Patient was given diuretics in an attempt to avoid intubation. Urine output remains adequate at this time, but BUN and creatinine continue to rise. Cannot exclude the need for renal replacement therapy. TIME: 32 minutes critical care time spent addressing patient's acute hypoxic respiratory failure, diabetes mellitus, review of all data and collaboration with care team (5:20 AM to 6:20 AM) Subjective Subjective Patient did okay overnight. No acute issues were reported. Patient did have a fever, so pancultures were sent. Urine output has remained adequate. No significant ectopy reported. Objective Data Objective Data Vital Signs: Vital Signs Temp Pulse Resp BP Pulse Ox 38.3 C H 93 16 105/63 93 04/23/21 04:00 04/23/21 07:00 04/23/21 07:00 04/23/21 07:00 04/23/21 07:00 Oxygen Flow Rate (L/min) 15 Oxygen Delivery Method Mechanical Ventilator Weight: 132.2 kg Body Mass Index (BMI) 44.8 Intake & Output: Intake and Output for Last 24 Hours 04/21/21 04/22/21 04/23/21 23:59 23:59 23:59 Intake Total 550.58 / 572.58 1185.30 / 1562.30 822 / 822 Output Total 1100 / 1100 1075 / 1275 260 / 260 Balance -549.42 / -527.42 110.30 / 287.30 562 / 562 Lab / Micro Data Result Diagrams: 04/23/21 03:25 04/23/21 03:25 Labs: Laboratory Results - last 24 hr 04/22/21 07:49: POC Glucose 193 H 04/22/21 12:31: POC Glucose 220 H 04/22/21 16:34: POC Glucose 261 H 04/22/21 20:24: POC Glucose 239 H 04/23/21 03:25: WBC 11.2 H, RBC 5.79, Hgb 15.7, Hct 51.3, MCV 88.6, MCH 27.1, MCHC 30.6 L, RDW Std Deviation 51.4 H, RDW Coeff of Renato 15.9 H, Plt Count 432, MPV 11.2, Immature Gran % (Auto) 0.800, Neut % (Auto) 93.9 H, Lymph % (Auto) 3.0 L, [place] % (Auto) 1.9, Eos % (Auto) 0.3, Baso % (Auto) 0.1, Absolute Neuts (auto) 10.5 H, Absolute Lymphs (auto) 0.34 L, Nucleated RBC % 0, Differential Comment SCANNED 04/23/21 03:25: Sodium 135 L, Potassium 5.3 H, Chloride 98, Carbon Dioxide 30.0, Anion Gap 7, BUN 82 H, Creatinine 3.57 H, Estim Creat Clear Calc 24.14, Est GFR (MDRD) Af Amer 23 L, Est GFR (MDRD) Non-Af 19 L, BUN/Creatinine Ratio 23.0 H, Glucose 266 H, Calcium 8.4 L, Total Bilirubin 0.60, AST 20, ALT 25, Alkaline Phosphatase 97, Total Protein 7.3, Albumin 1.9 L, Globulin 5.4 H, Albumin/Globulin Ratio 0.4 L Micro: Microbiology 04/21/21 13:14 Sputum, Induced/Lukens Gram Stain - Final 04/21/21 13:14 Sputum, Induced/Lukens Respiratory Culture - Preliminary Appears to be normal respiratory roosevelt. Further studies to follow. 04/14/21 17:20 Blood Culture (Wb) - Anticubital Left Blood Culture - Final No growth in 5 days. 04/14/21 17:15 Blood Culture (Wb) - Arm Left Blood Culture - Final No growth in 5 days. ABG Data ABG results: ABG 04/23/21 05:06 Specimen Type ART Sample Site R Radial pH 7.32 L Bicarbonate Actual 29.4 H Total CO2 31 Base Excess 3 H O2 Saturation 94 L O2 % 100 ABG pCO2 56.7 H ABG pO2 79 Vasquez Test Positive Respiration Rate 12 O2 Delivery Device Adult Vent Vent Mode BiLevel Clinical Comments Rhythm Strip Rhythm Strip: Sinus Tach Rate: 104 Ectopy: None Physical Exam Const General Appearance: well developed, lethargic, intubated and patient mechanically ventilated Nutritional Appearance: morbidly obese HEENT normocephalic, head/scalp atraumatic and moist oral mucous membranes Eyes EOMs intact bilaterally and conjunctivae normal Neck supple General: trachea midline Chest inspection of chest normal Chest: symmetrical chest wall rise; Negative for crepitus Resp Resp Narrative: No secretions noted with suctioning Effort and Inspection: tachypneic Auscultation: rales diffuse and diminished lung sounds; Negative for rhonchi or wheezes Cardio regular rate, regular rhythm, S1 normal heart sound, S2 normal heart sound, no murmurs, no rub and no gallops GI normal to inspection, nondistended, normoactive bowel sounds GI Narrative: Significant abdominal obesity Extremity no clubbing, cyanosis or edema Skin no rashes or lesions noted Neuro CN's II-XII intact bilaterally and no focal motor deficits Psych cooperative and affect normal Charges/Coding Procedures Hospitalists Procedures: [id number] Critial Care 1st Hr
[2021-04-23] MEDS: Insulin Lispro 100 UNIT/ML INSULN.PEN SC ×4 (07:58→21:02)
[2021-04-23] MEDS: CHLORHEXIDINE GLUC 2% CLOTH 1 EACH TOWELETTE TOPICAL (07:58)
[2021-04-23 08:36] LABS: Bedside Glucose 286 mg/dL (70-110)
[2021-04-23] MEDS: 0.9% Saline Lock 10 ML Syringe IV (10:44)
[2021-04-23] MEDS: Metoprolol Tartrate 50 MG Tablet GT ×2 (10:45→20:54)
[2021-04-23] MEDS: Polyethylene Glycol 3350 17 GM PACKET GT (10:45)
[2021-04-23] MEDS: dexAMETHasone 2 MG TABLET 6 MG GT (10:45)
[2021-04-23] MEDS: Aspirin 81 MG TAB.CHEW GT (10:46)
[2021-04-23] MEDS: Senna Tablet 2 TABLET GT ×2 (10:46→20:54)
[2021-04-23] MEDS: Levothyroxine 50 MCG Tablet GT (10:46)
[2021-04-23] MEDS: Chlorhexidine 480 ML 15 ML PO ×2 (10:47→20:54)
[2021-04-23 11:55] LABS: Bedside Glucose 301 mg/dL (70-110)
--- NOTE | 2021-04-23 12:07 | PN.HOSP_ITS ---
Subjective Subjective Fever overnight. Still on 100% FiO2 Objective Data Objective Data Vital Signs: Vital Signs Temp Pulse Resp BP Pulse Ox 37.7 C H 87 19 H 111/69 92 04/23/21 08:00 04/23/21 10:45 04/23/21 10:08 04/23/21 08:00 04/23/21 10:08 Oxygen Flow Rate (L/min) 15 Oxygen Delivery Method Mechanical Ventilator Weight: 132.2 kg Body Mass Index (BMI) 44.8 Intake & Output: Intake and Output for Last 24 Hours 04/21/21 04/22/21 04/23/21 23:59 23:59 23:59 Intake Total 550.58 / 572.58 1185.30 / 1562.30 1317 / 1317 Output Total 1100 / 1100 1075 / 1275 535 / 535 Balance -549.42 / -527.42 110.30 / 287.30 782 / 782 Lab / Micro Data Result Diagrams: 04/23/21 03:25 04/23/21 03:25 Labs: Laboratory Results - last 24 hr 04/22/21 12:31: POC Glucose 220 H 04/22/21 16:34: POC Glucose 261 H 04/22/21 20:24: POC Glucose 239 H 04/23/21 03:25: WBC 11.2 H, RBC 5.79, Hgb 15.7, Hct 51.3, MCV 88.6, MCH 27.1, MCHC 30.6 L, RDW Std Deviation 51.4 H, RDW Coeff of Renato 15.9 H, Plt Count 432, MPV 11.2, Immature Gran % (Auto) 0.800, Neut % (Auto) 93.9 H, Lymph % (Auto) 3.0 L, [place] % (Auto) 1.9, Eos % (Auto) 0.3, Baso % (Auto) 0.1, Absolute Neuts (auto) 10.5 H, Absolute Lymphs (auto) 0.34 L, Nucleated RBC % 0, Differential Comment SCANNED 04/23/21 03:25: Sodium 135 L, Potassium 5.3 H, Chloride 98, Carbon Dioxide 30.0, Anion Gap 7, BUN 82 H, Creatinine 3.57 H, Estim Creat Clear Calc 24.14, Est GFR (MDRD) Af Amer 23 L, Est GFR (MDRD) Non-Af 19 L, BUN/Creatinine Ratio 23.0 H, Glucose 266 H, Calcium 8.4 L, Total Bilirubin 0.60, AST 20, ALT 25, Alkaline Phosphatase 97, Total Protein 7.3, Albumin 1.9 L, Globulin 5.4 H, Albumi n/Globulin Ratio 0.4 L 04/23/21 07:57: POC Glucose 286 H Micro: Microbiology 04/23/21 04:10 Sputum, Induced/Lukens Gram Stain - Final 04/21/21 13:14 Sputum, Induced/Lukens Gram Stain - Final 04/21/21 13:14 Sputum, Induced/Lukens Respiratory Culture - Preliminary Appears to be normal respiratory roosevelt. Further studies to follow. 04/14/21 17:20 Blood Culture (Wb) - Anticubital Left Blood Culture - Final No growth in 5 days. 04/14/21 17:15 Blood Culture (Wb) - Arm Left Blood Culture - Final No growth in 5 days. ABG Data ABG results: ABG 04/23/21 05:06 Specimen Type ART Sample Site R Radial pH 7.32 L Bicarbonate Actual 29.4 H Total CO2 31 Base Excess 3 H O2 Saturation 94 L O2 % 100 ABG pCO2 56.7 H ABG pO2 79 Vasquez Test Positive Respiration Rate 12 O2 Delivery Device Adult Vent Vent Mode BiLevel Clinical Comments Rhythm Strip Rhythm Strip: Sinus Tach Rate: 104 Ectopy: None Physical Exam Const Constitutional Narrative: intubated and sedated Resp normal respiratory effort, no retractions, no use of accessory muscles and clear to auscultation bilaterally Cardio regular rate, regular rhythm, S1 normal heart sound and S2 normal heart sound GI normal to inspection, nondistended, normoactive bowel sounds, soft to palpation, non-tender and non-distended Assessment & Plan Assessment/Plan (1) Acute respiratory failure with hypoxia: (2) COVID-19: PLAN: #Acute hypoxic respiratory failure due to COVID 19 infection * intubated on 100% FiO2 * on decadron * pulmonology and ID on board * on Baricitinib for a 14 day course, as ordered per ID, started on 04/17 and did continue through the . * on breathing treatment with bronchodilators * titrate oxygen to maintain sats >90% * Onset of symptoms on April 05. * Patient is unvaccinated #MAYRA non-oliguric #Elevated D dimer: CTA negative for PE. switched to full-dose enoxaparin given worsening condition. #Hypertension * metoprolol held as BP is running in the 90s/ #Diabetes mellitus * metformin on hold. ISS. Accuchecks ACHS #Hypothyroidism; on synthroid #History of ZOEY * doesnt use his CPAP machine * to follow up with pulmonology on outpatient basis DVT prophylaxis: anticoagulated Prognosis: Guarded . Charges/Coding Visit Charges Inpatient E&M: 10367 Subs Hosp L2
--- NOTE | 2021-04-23 12:46 | CASEMGMT ---
Social Work SW met with pt significant other Kori, pt son Wally and pt sister in law Maria Del Carmen. Discussed pt's poor prognosis and emotional support provided. Pt son is disabled but is able to communicate effectively through an maria ines on his phone and Kori and Wally indicated understanding of pt condition and prognosis. Family aware that SW will remain available for support as needed. NAS Santiago
--- NOTE | 2021-04-23 14:13 | PCM.PN.ID ---
Physical Exam Narrative On vent, no fever Const no apparent distress Resp Auscultation: diminished lung sounds Cardio regular rate and regular rhythm GI normal to inspection, nondistended, normoactive bowel sounds Skin no rashes or lesions noted ID ID: Route of nutrition/ use of supplements: [] Nutritional Intake: [] IV Site: [] Briseno Catheter: [] Assessment & Plan Assessment/Plan (1) Acute respiratory failure with hypoxia: (2) COVID-19: PLAN: Sx started 04/05/21. Unvaccinated. Family at home also with covid, but vaccinated and improving. On dex, did not qualify for remdesivir due to timing. Plan on 20 days of quarantine. With rapidly worsening hypoxia, started baricitinib for 14 day course or to stop at time of discharge. Now with MAYRA, will decrease dose of baricitinib. Will follow, d/w pharmacy.
[2021-04-23] MEDS: Vital High Protein 1,000 ML 70 ML GT (15:46)
[2021-04-23 16:41] LABS: Bedside Glucose 345 mg/dL (70-110)
[2021-04-23 21:11] LABS: Bedside Glucose 391 mg/dL (70-110)
[2021-04-24] VITALS (38 sets, daily range): BP systolic 92–136; BP diastolic 59–74; PULSE 81–127; RESP 11–26; TEMP 37.2–38.6; O2SAT 89–97
[2021-04-24 05:30] LABS: Base Excess 4 mmol/L (-2 to +2); Blood Gas Specimen Type ART; FI02 100; Mode APRV; O2 Delivery Device Adult Vent; PO2 81 mmHG (75-100); RR 12; SITE R Radial; SO2 94 % (95-99); Total Carbon Dioxide 32 mmol/L; pCO2 59.4 mmHg (35-45); pH 7.31 (7.35-7.45)
[2021-04-24 05:47] LABS: Absolute Lymphocyte Count 0.36 X10^3/uL (0.83-4.51); Absolute Neutrophil Count 11.9 X10^3/uL (2.0-7.7); Basophil# 0.02 X10^3/uL; Basophil% 0.2 % (0-1); Eosinophil# 0.06 X10^3/uL; Eosinophils% 0.5 % (0-5); Hematocrit 47.6 % (40-54); Hemoglobin 14.5 g/dL (13.0-16.5); Lymphocyte # 0.36 X10^3/ul (0.83-4.51); Lymphocyte % 2.8 % (19-41); Mean Corp Hgb Conc 30.5 g/dL (32-36); Mean Corpuscular Hgb 26.8 pg (27.0-32.0); Mean Platelet Vol. 11.5 fl (6.2-12.0); Monocyte# 0.41 X10^3/uL; Monocyte% 3.2 % (0-10); NRBC Flagged by Analyzer 0 % (0-5); Neutrophil # 11.91 X10^3/uL (2.7-7.7); Neutrophil % 92.4 % (47-70); POSITIVE DIFFERENTIAL YES; Platelet Count 417 K/mm3 (150-450); RBC Distribution Width CV 15.9 % (11.6-14.6); RBC Distribution Width SD 51.2 fl (35.1-43.9); Red Blood Count 5.41 M/mm3 (4.6-6.2); White Blood Count 12.9 K/mm3 (4.4-11.0)
[2021-04-24] MEDS: Propofol 10MG/Ml 1,000 MG/100 ML Bottle 17 MG CONT INF (05:50)
[2021-04-24 06:00] LABS: Differential Indicated SCAN CRITERIA MET
[2021-04-24 06:41] LABS: Differential Comment SCANNED
[2021-04-24 06:49] LABS: ALB/GLOB Ratio 0.4 RATIO (0.9-2.4); AST(SGOT) 50 U/L (15-37); Alanine Aminotransfer ALT/SGPT 27 U/L (16-61); Albumin, Serum 1.9 g/dL (3.2-5.0); Alkaline Phosphatase 95 U/L (45-117); Anion Gap 8 (5-15); BUN 121 mg/dL (7-18); BUN/Creat Ratio 39.8 RATIO (10-20); Calcium,Total 8.3 mg/dL (8.5-10.1); Chloride 98 mmol/L (98-107); Creatinine, Serum 3.04 mg/dL (0.70-1.30); EST Glomerular Filtration Rate 23 mL/min (>60); Est Glom Filt Rate - Afr Amer 28 mL/min (>60); Estimated Creatinine Clearance 28.35 ml/min; Globulin 5.1 g/dL (2.2-4.2); Glucose 380 mg/dL (74-106); Potassium 4.9 mmol/L (3.5-5.1); Sodium Level 136 mmol/L (136-145)
--- NOTE | 2021-04-24 07:18 | PN.CC_ITS ---
Assessment & Plan Assessment/Plan (1) Acute respiratory failure with hypoxia: (2) COVID-19: PLAN: RECOMMENDATIONS: 1. Continue APRV and wean FiO2 as tolerated to maintain saturations at or above 90%. 2. Continue Decadron to complete 10-day treatment course (04/25/2021) 3. Will increase to therapeutic anticoagulation empirically. This may need to be held for interventions 4. Encourage incentive spirometer use and mobilize patient as tolerated. 5. We will hold on prone positioning for now given abdominal obesity 6. Continue baricitinib per ID recommendations. Dose altered given renal function 7. Utilize Lasix as needed to maintain euvolemic state. No dose of Lasix to day IMPRESSIONS: 1. Acute hypoxemic respiratory failure secondary to ARDS secondary to COVID- 19 pneumonia The patient presented to the hospital with progressive dyspnea and hypoxemia. His symptoms began at the end of March and the patient subsequently tested positive for Covid on April 10. From my perspective, the patient is currently outside of the window to administer remdesivir. Recommend continuing Decadron to complete 10-day treatment course. Patient failed BiPAP therapy and was subsequently intubated on 04/21/2021. Patient will be continued on CARLA inhibitor per infectious disease, but the dose is changed given renal function. We will continue with Decadron therapy. Patient currently on maximum APRV and still with marginal saturations. Patient appears to be slightly improved on therapeutic Lovenox. This may need to be held if family elects for dialysis and renal function continues to worsen. 2. Obesity/hypothyroidism/diabetes mellitus/hyperlipidemia Complicates care, management, recovery and prognosis. Continue home medications as indicated. Lantus will be increased. 3. Acute kidney injury Patient was given diuretics in an attempt to avoid intubation. Urine output remains adequate at this time, but BUN and creatinine are elevated. We will hold off on nephrology consult for now. Cannot exclude the need for renal replacement therapy. TIME: 32 minutes critical care time spent addressing patient's acute hypoxic respiratory failure, diabetes mellitus, review of all data and collaboration with care team (6:30 AM to 7:30 AM) Subjective Subjective Patient did okay overnight. Patient remains on maximal vent settings. Patient is not interactive. Patient continues to make good urine. Patient tolerating tube feeds. Objective Data Objective Data Vital Signs: Vital Signs Temp Pulse Resp BP Pulse Ox 37.2 C 101 H 21 H 109/71 92 09/17/21 04:00 04/24/21 06:29 04/24/21 06:29 04/24/21 06:00 04/24/21 06:29 Oxygen Flow Rate (L/min) 15 Oxygen Delivery Method Mechanical Ventilator Weight: 132.2 kg Body Mass Index (BMI) 44.8 Intake & Output: Intake and Output for Last 24 Hours 04/22/21 04/23/21 04/24/21 23:59 23:59 23:59 Intake Total 1185.30 / 1562.30 2590 / 3285.2 1252.83 / 1252.83 Output Total 1075 / 1275 745 / 1195 800 / 800 Balance 110.30 / 287.30 1845 / 2090.2 452.83 / 452.83 Lab / Micro Data Result Diagrams: 04/24/21 05:30 04/24/21 05:30 Labs: Laboratory Results - last 24 hr 04/23/21 07:57: POC Glucose 286 H 04/23/21 11:35: POC Glucose 301 H 04/23/21 15:45: POC Glucose 345 H 04/23/21 21:01: POC Glucose 391 H 04/24/21 05:30: WBC 12.9 H, RBC 5.41, Hgb 14.5, Hct 47.6, MCV 88.0, MCH 26.8 L, MCHC 30.5 L, RDW Std Deviation 51.2 H, RDW Coeff of Renato 15.9 H, Plt Count 417, MPV 11.5, Immature Gran % (Auto) 0.900, Neut % (Auto) 92.4 H, Lymph % (Auto) 2.8 L, [place] % (Auto) 3.2, Eos % (Auto) 0.5, Baso % (Auto) 0.2, Absolute Neuts (auto) 11.9 H, Absolute Lymphs (auto) 0.36 L, Nucleated RBC % 0, Differential Comment SCANNED 04/24/21 05:30: Sodium 136, Potassium 4.9, Chloride 98, Carbon Dioxide 30.0, Anion Gap 8, BUN 121 H*, Creatinine 3.04 H, Estim Creat Clear Calc 28.35, Est GFR (MDRD) Af Amer 28 L, Est GFR (MDRD) Non-Af 23 L, BUN/Creatinine Ratio 39.8 H , Glucose 380 H, Calcium 8.3 L, Total Bilirubin 0.70, AST 50 H, ALT 27, Alkaline Phosphatase 95, Total Protein 7.0, Albumin 1.9 L, Globulin 5.1 H, Albumin/Globulin Ratio 0.4 L Micro: Microbiology 04/21/21 13:14 Sputum, Induced/Lukens Gram Stain - Final 04/21/21 13:14 Sputum, Induced/Lukens Respiratory Culture - Final 04/23/21 04:10 Sputum, Induced/Lukens Gram Stain - Final 04/14/21 17:20 Blood Culture (Wb) - Anticubital Left Blood Culture - Final No growth in 5 days. 04/14/21 17:15 Blood Culture (Wb) - Arm Left Blood Culture - Final No growth in 5 days. ABG Data ABG results: ABG 04/24/21 05:24 Specimen Type ART Sample Site R Radial pH 7.31 L Bicarbonate Actual 30.0 H Total CO2 32 Base Excess 4 H O2 Saturation 94 L O2 % 100 ABG pCO2 59.4 H ABG pO2 81 Vasquez Test N/A Respiration Rate 12 O2 Delivery Device Adult Vent Vent Mode APRV Clinical Comments PHIGH28 THIGH4.5 Rhythm Strip Rhythm Strip: Sinus Tach Rate: 104 Ectopy: None Physical Exam Const General Appearance: well developed, lethargic, intubated and patient mechanically ventilated Nutritional Appearance: morbidly obese HEENT normocephalic, head/scalp atraumatic and moist oral mucous membranes Eyes EOMs intact bilaterally and conjunctivae normal Neck supple General: trachea midline Chest inspection of chest normal Chest: symmetrical chest wall rise; Negative for crepitus Resp Resp Narrative: No secretions noted with suctioning Effort and Inspection: tachypneic Auscultation: rales diffuse and diminished lung sounds; Negative for rhonchi or wheezes Cardio regular rate, regular rhythm, S1 normal heart sound, S2 normal heart sound, no murmurs, no rub and no gallops GI normal to inspection, nondistended, normoactive bowel sounds GI Narrative: Significant abdominal obesity Extremity no clubbing, cyanosis or edema Skin no rashes or lesions noted Neuro CN's II-XII intact bilaterally and no focal motor deficits Psych cooperative and affect normal Charges/Coding Procedures Hospitalists Procedures: [id number] Critial Care 1st Hr
[2021-04-24] MEDS: CHLORHEXIDINE GLUC 2% CLOTH 1 EACH TOWELETTE TOPICAL (08:11)
[2021-04-24] MEDS: Vital High Protein 1,000 ML 70 ML GT (08:11)
[2021-04-24] MEDS: Aspirin 81 MG TAB.CHEW GT (08:12)
[2021-04-24] MEDS: Polyethylene Glycol 3350 17 GM PACKET GT (08:12)
[2021-04-24] MEDS: Senna Tablet 2 TABLET GT ×2 (08:12→21:39)
[2021-04-24] MEDS: Multivitamins,Therapeutic Tablet 1 TABLET PO (08:12)
[2021-04-24] MEDS: Chlorhexidine 480 ML 15 ML PO ×2 (08:13→21:48)
[2021-04-24] MEDS: Enoxaparin 150 MG/ML Syringe 130 MG SC (08:13)
[2021-04-24] MEDS: Metoprolol Tartrate 50 MG Tablet GT ×2 (08:13→21:39)
[2021-04-24] MEDS: Levothyroxine 50 MCG Tablet GT (08:14)
[2021-04-24] MEDS: Insulin Lispro 100 UNIT/ML INSULN.PEN SC ×4 (08:19→21:54)
[2021-04-24] MEDS: TITRATION PARAMETER CHANGE 1 EACH IV (08:55)
[2021-04-24 11:41] LABS: Bedside Glucose 347 mg/dL (70-110)
[2021-04-24 11:56] LABS: Bedside Glucose 360 mg/dL (70-110)
[2021-04-24] MEDS: Propofol 10MG/Ml 1,000 MG/100 ML Bottle 16 MG CONT INF ×2 (12:00→18:30)
--- NOTE | 2021-04-24 12:10 | CASEMGMT ---
THEODORE participated in ICU rounds, called significant other Kori Ba. She was with her sister Maria Del Carmen. Support given. THEODORE spoke w/Kori about POA. As far as Kori knows, pt has not completed POA forms, but she has always been pt's decision maker. Pt does have a son Wally as per Kori who is disabled but is able to make decisions. Wally lives w/Kori. Wally communicates via an maria ines on his phone, where whatever the caller says gets typed out. This is due to past history of tumors. Kori states Wally is very smart and capable of making decisions, has a Master's Degree. She states she and Wally are on the same page in regard to making decisions. She states Wally was here yesterday when she was able to visit.Pt also has two sisters, Trina and Maria Eugenia. Trina has COVID at present so would not be able to come in to see pt. Kori asked SW about decision in regard to dialysis. She states she knows pt would want to live if he couldn't function, states wouldn't want dialysis for him if he is going to anyway. THEODORE explained is uncertain if a decision needs made in regard to this yet, but if it does the RN will follow up w/her and son. Kori states understanding. THEODORE did let RN know that son can make decisions, though communicates through an maria ines on his phone. THEODORE explained son Wally and Kori live together, and they are on the same page in regard to decisions for pt. THEODORE will continue to follow and remains available for support to Kori, son, and family. SHAQUILLE Barr
[2021-04-24] MEDS: Acetaminophen 650 MG/20 ML UDC GT (13:32)
--- NOTE | 2021-04-24 13:43 | PN.HOSP_ITS ---
Subjective Subjective Still on high FiO2 with vent. Objective Data Objective Data Vital Signs: Vital Signs Temp Pulse Resp BP Pulse Ox 38.2 C H 112 H 14 107/65 91 04/24/21 13:30 04/24/21 13:16 04/24/21 13:16 04/24/21 13:00 04/24/21 13:16 Oxygen Flow Rate (L/min) 15 Oxygen Delivery Method Mechanical Ventilator Weight: 133.7 kg Body Mass Index (BMI) 44.8 Intake & Output: Intake and Output for Last 24 Hours 04/22/21 04/23/21 04/24/21 23:59 23:59 23:59 Intake Total 1185.30 / 1562.30 2590 / 3285.2 2243.67 / 2243.67 Output Total 1075 / 1275 745 / 1195 1725 / 1725 Balance 110.30 / 287.30 1845 / 2090.2 518.67 / 518.67 Lab / Micro Data Result Diagrams: 04/24/21 05:30 04/24/21 05:30 Labs: Laboratory Results - last 24 hr 04/23/21 15:45: POC Glucose 345 H 04/23/21 21:01: POC Glucose 391 H 04/24/21 05:30: WBC 12.9 H, RBC 5.41, Hgb 14.5, Hct 47.6, MCV 88.0, MCH 26.8 L, MCHC 30.5 L, RDW Std Deviation 51.2 H, RDW Coeff of Renato 15.9 H, Plt Count 417, MPV 11.5, Immature Gran % (Auto) 0.900, Neut % (Auto) 92.4 H, Lymph % (Auto) 2.8 L, [place] % (Auto) 3.2, Eos % (Auto) 0.5, Baso % (Auto) 0.2, Absolute Neuts (auto) 11.9 H, Absolute Lymphs (auto) 0.36 L, Nucleated RBC % 0, Differential Comment SCANNED 04/24/21 05:30: Sodium 136, Potassium 4.9, Chloride 98, Carbon Dioxide 30.0, Anion Gap 8, BUN 121 H*, Creatinine 3.04 H, Estim Creat Clear Calc 28.35, Est GFR (MDRD) Af Amer 28 L, Est GFR (MDRD) Non-Af 23 L, BUN/Creatinine Ratio 39.8 H , Glucose 380 H, Calcium 8.3 L, Total Bilirubin 0.70, AST 50 H, ALT 27, Alkaline Phosphatase 95, Total Protein 7.0, Albumin 1.9 L, Globulin 5.1 H, Albumin/Globulin Ratio 0.4 L 04/24/21 08:17: POC Glucose 360 H 04/24/21 11:17: POC Glucose 347 H Micro: Microbiology 04/23/21 04:07 Urine Catheter - Catheter Urine Culture - Preliminary Culture exhibits no growth. 04/21/21 13:14 Sputum, Induced/Lukens Gram Stain - Final 04/21/21 13:14 Sputum, Induced/Lukens Respiratory Culture - Final 04/23/21 04:10 Sputum, Induced/Lukens Gram Stain - Final 04/14/21 17:20 Blood Culture (Wb) - Anticubital Left Blood Culture - Final No growth in 5 days. 04/14/21 17:15 Blood Culture (Wb) - Arm Left Blood Culture - Final No growth in 5 days. ABG Data ABG results: ABG 04/24/21 05:24 Specimen Type ART Sample Site R Radial pH 7.31 L Bicarbonate Actual 30.0 H Total CO2 32 Base Excess 4 H O2 Saturation 94 L O2 % 100 ABG pCO2 59.4 H ABG pO2 81 Vasquez Test N/A Respiration Rate 12 O2 Delivery Device Adult Vent Vent Mode APRV Clinical Comments PHIGH28 THIGH4.5 Rhythm Strip Rhythm Strip: Sinus Tach Rate: 104 Ectopy: None Physical Exam Const alert Resp normal respiratory effort, no retractions and no use of accessory muscles Cardio regular rate, regular rhythm, S1 normal heart sound and S2 normal heart sound GI normal to inspection, nondistended, normoactive bowel sounds, soft to palpation, non-tender and non-distended Extremity normal to inspection Assessment & Plan Assessment/Plan (1) Acute respiratory failure with hypoxia: (2) COVID-19: PLAN: #Acute hypoxic respiratory failure due to COVID 19 infection * intubated on 100% FiO2 * on decadron * pulmonology and ID on board * on Baricitinib for a 14 day course, as ordered per ID, started on 04/17 and did continue through the . * on breathing treatment with bronchodilators * titrate oxygen to maintain sats >95% * Onset of symptoms on April 05. * Patient is unvaccinated #MAYRA non-oliguric creatinine slightly improved #Elevated D dimer: CTA negative for PE. switched to full-dose enoxaparin given worsening condition. #Hypertension * metoprolol held as BP is running in the 90s/ #Diabetes mellitus * metformin on hold. ISS. Accuchecks ACHS #Hypothyroidism; on synthroid #History of ZOEY * doesnt use his CPAP machine * to follow up with pulmonology on outpatient basis DVT prophylaxis: anticoagulated Prognosis: Guarded . Charges/Coding Visit Charges Inpatient E&M: 27676 Subs Hosp L2
[2021-04-24 18:55] LABS: Bedside Glucose 330 mg/dL (70-110)
[2021-04-24 22:00] LABS: Bedside Glucose 325 mg/dL (70-110)
[2021-04-25] VITALS (37 sets, daily range): BP systolic 88–122; BP diastolic 31–81; PULSE 104–133; RESP 16–28; TEMP 37.3–39.3; O2SAT 82–115
[2021-04-25] MEDS: Propofol 10MG/Ml 1,000 MG/100 ML Bottle 16 MG CONT INF ×4 (00:52→16:42)
[2021-04-25] MEDS: Vital High Protein 1,000 ML 70 ML GT ×2 (00:53→13:48)
[2021-04-25 04:06] LABS: Absolute Lymphocyte Count 0.38 X10^3/uL (0.83-4.51); Absolute Neutrophil Count 15.1 X10^3/uL (2.0-7.7); Basophil# 0.03 X10^3/uL; Basophil% 0.2 % (0-1); Eosinophil# 0.09 X10^3/uL; Eosinophils% 0.6 % (0-5); Hematocrit 48.5 % (40-54); Hemoglobin 14.8 g/dL (13.0-16.5); Lymphocyte # 0.38 X10^3/ul (0.83-4.51); Lymphocyte % 2.3 % (19-41); Mean Corp Hgb Conc 30.5 g/dL (32-36); Mean Corpuscular Hgb 27.1 pg (27.0-32.0); Mean Corpuscular Volume 88.8 fL (80-94); Mean Platelet Vol. 11.7 fl (6.2-12.0); Monocyte# 0.48 X10^3/uL; NRBC Flagged by Analyzer 0 % (0-5); Neutrophil # 15.09 X10^3/uL (2.7-7.7); Neutrophil % 92.9 % (47-70); POSITIVE DIFFERENTIAL YES; Platelet Count 408 K/mm3 (150-450); RBC Distribution Width CV 15.8 % (11.6-14.6); RBC Distribution Width SD 51.8 fl (35.1-43.9); Red Blood Count 5.46 M/mm3 (4.6-6.2); White Blood Count 16.2 K/mm3 (4.4-11.0)
[2021-04-25 04:11] LABS: Differential Indicated SCAN CRITERIA MET
[2021-04-25 04:27] LABS: Anion Gap 6 (5-15); BUN 133 mg/dL (7-18); BUN/Creat Ratio 48.2 RATIO (10-20); Calcium,Total 8.7 mg/dL (8.5-10.1); Chloride 101 mmol/L (98-107); Creatinine, Serum 2.76 mg/dL (0.70-1.30); EST Glomerular Filtration Rate 26 mL/min (>60); Est Glom Filt Rate - Afr Amer 31 mL/min (>60); Estimated Creatinine Clearance 31.22 ml/min; Glucose 305 mg/dL (74-106); Potassium 5.1 mmol/L (3.5-5.1); Sodium Level 138 mmol/L (136-145)
[2021-04-25 04:32] LABS: Differential Comment SCANNED
[2021-04-25 05:41] LABS: Allen Test Positive; Base Excess 4 mmol/L (-2 to +2); Blood Gas Specimen Type ART; FI02 95; Mode BiLevel; O2 Delivery Device Adult Vent; PO2 64 mmHG (75-100); RR 12; SITE R Radial; SO2 90 % (95-99); Total Carbon Dioxide 32 mmol/L; pH 7.35 (7.35-7.45)
--- NOTE | 2021-04-25 07:21 | PN.CC_ITS ---
Assessment & Plan Assessment/Plan (1) Acute respiratory failure with hypoxia: (2) COVID-19: PLAN: RECOMMENDATIONS: 1. Continue APRV and wean FiO2 as tolerated to maintain saturations at or above 90%. 2. Continue Decadron to complete another 10-day treatment course (05/05/2021) 3. On therapeutic anticoagulation empirically. This may need to be held for interventions 4. Encourage incentive spirometer use and mobilize patient as tolerated. 5. We will hold on prone positioning for now given abdominal obesity 6. Continue baricitinib per ID recommendations. Dose altered given renal function 7. Utilize Lasix as needed to maintain euvolemic state. No dose of Lasix today IMPRESSIONS: 1. Acute hypoxemic respiratory failure secondary to ARDS secondary to COVID- 19 pneumonia The patient presented to the hospital with progressive dyspnea and hypoxemia. His symptoms began at the end of March and the patient subsequently tested positive for Covid on April 10. From my perspective, the patient is currently outside of the window to administer remdesivir. Recommend continuing Decadron to complete 10-day treatment course. Patient failed BiPAP therapy and was subsequently intubated on 04/21/2021. Patient will be continued on CARLA inhibitor per infectious disease, but the dose is changed given renal function. We will continue with Decadron therapy for an additional 10 days. Patient currently on maximum APRV and still with marginal saturations. Patient appears to be slightly improved on therapeutic Lovenox. This may need to be held if family elects for dialysis and renal function continues to worsen. 2. Obesity/hypothyroidism/diabetes mellitus/hyperlipidemia Complicates care, management, recovery and prognosis. Continue home medications as indicated. Lantus will be increased. 3. Acute kidney injury Patient was given diuretics in an attempt to avoid intubation. Urine output remains adequate at this time, but BUN and creatinine are elevated. We will hold off on nephrology consult for now. Cannot exclude the need for renal replacement therapy. TIME: 35 minutes critical care time spent addressing patient's acute hypoxic respiratory failure, diabetes mellitus, review of all data and collaboration with care team (5:45 AM to 6:45 AM) Subjective Subjective Patient did okay overnight. No acute issues were reported, the patient's saturations continue to be marginal. Patient has not had a bowel movement despi te multiple interventions. Patient currently sedated on the ventilator. Did have a 35-minute discussion with patient's son and girlfriend last evening about goals of therapy. Patient son is suggesting that aggressive measures including tracheostomy and dialysis are appropriate. Patient's girlfriend states that she is unclear if he would want to be intubated in the first place. Objective Data Objective Data Vital Signs: Vital Signs Temp Pulse Resp BP Pulse Ox 37.3 C H 128 H 24 H 110/69 89 04/25/21 00:00 04/25/21 06:55 04/25/21 06:55 04/25/21 06:00 04/25/21 06:55 Oxygen Flow Rate (L/min) 15 Oxygen Delivery Method Mechanical Ventilator Weight: 134.1 kg Body Mass Index (BMI) 44.8 Intake & Output: Intake and Output for Last 24 Hours 04/23/21 04/24/21 04/25/21 23:59 23:59 23:59 Intake Total 2590 / 3285.2 3122.16 / 3687.16 841.80 / 841.80 Output Total 745 / 1195 1975 / 2975 1300 / 1300 Balance 1845 / 2090.2 1147.16 / 712.16 -458.20 / -458.20 Lab / Micro Data Result Diagrams: 04/25/21 04:00 04/25/21 04:00 Labs: Laboratory Results - last 24 hr 04/24/21 08:17: POC Glucose 360 H 04/24/21 11:17: POC Glucose 347 H 04/24/21 16:23: POC Glucose 330 H 04/24/21 21:53: POC Glucose 325 H 04/25/21 04:00: WBC 16.2 H, RBC 5.46, Hgb 14.8, Hct 48.5, MCV 88.8, MCH 27.1, MCHC 30.5 L, RDW Std Deviation 51.8 H, RDW Coeff of Renato 15.8 H, Plt Count 408, MPV 11.7, Immature Gran % (Auto) 1.000 H, Neut % (Auto) 92.9 H, Lymph % (Auto) 2.3 L, [place] % (Auto) 3.0, Eos % (Auto) 0.6, Baso % (Auto) 0.2, Absolute Neuts (auto) 15.1 H, Absolute Lymphs (auto) 0.38 L, Nucleated RBC % 0, Differential Comment SCANNED 04/25/21 04:00: Sodium 138, Potassium 5.1, Chloride 101, Carbon Dioxide 31.0, Anion Gap 6, BUN 133 H*, Creatinine 2.76 H, Estim Creat Clear Calc 31.22, Est GFR (MDRD) Af Amer 31 L, Est GFR (MDRD) Non-Af 26 L, BUN/Creatinine Ratio 48.2 H , Glucose 305 H, Calcium 8.7 Micro: Microbiology 04/23/21 04:07 Urine Catheter - Catheter Urine Culture - Preliminary Culture exhibits no growth. 04/21/21 13:14 Sputum, Induced/Lukens Gram Stain - Final 04/21/21 13:14 Sputum, Induced/Lukens Respiratory Culture - Final 04/23/21 04:10 Sputum, Induced/Lukens Gram Stain - Final 04/14/21 17:20 Blood Culture (Wb) - Anticubital Left Blood Culture - Final No growth in 5 days. 04/14/21 17:15 Blood Culture (Wb) - Arm Left Blood Culture - Final No growth in 5 days. ABG Data ABG results: ABG 04/25/21 05:34 Specimen Type ART Sample Site R Radial pH 7.35 Bicarbonate Actual 30.0 H Total CO2 32 Base Excess 4 H O2 Saturation 90 L O2 % 95 ABG pCO2 55.0 H ABG pO2 64 L Vasquez Test Positive Respiration Rate 12 O2 Delivery Device Adult Vent Vent Mode BiLevel Clinical Comments PH 28 TH 4.5 TL 0.5 Rhythm Strip Rhythm Strip: Sinus Tach Rate: 104 Ectopy: None Physical Exam Const General Appearance: well developed, lethargic, intubated and patient mechanicall y ventilated Nutritional Appearance: morbidly obese HEENT normocephalic, head/scalp atraumatic and moist oral mucous membranes Eyes EOMs intact bilaterally and conjunctivae normal Neck supple General: trachea midline Chest inspection of chest normal Chest: symmetrical chest wall rise; Negative for crepitus Resp Resp Narrative: No secretions noted with suctioning Effort and Inspection: tachypneic Auscultation: rales diffuse and diminished lung sounds; Negative for rhonchi or wheezes Cardio regular rate, regular rhythm, S1 normal heart sound, S2 normal heart sound, no murmurs, no rub and no gallops GI normal to inspection, nondistended, normoactive bowel sounds GI Narrative: Significant abdominal obesity Extremity no clubbing, cyanosis or edema Skin no rashes or lesions noted Neuro CN's II-XII intact bilaterally and no focal motor deficits Psych cooperative and affect normal Charges/Coding Procedures Hospitalists Procedures: [id number] Critial Care 1st Hr
[2021-04-25 08:06] LABS: Bedside Glucose 378 mg/dL (70-110)
[2021-04-25] MEDS: Insulin Lispro 100 UNIT/ML INSULN.PEN SC ×3 (08:06→21:27)
[2021-04-25] MEDS: Senna Tablet 2 TABLET GT ×2 (10:34→21:07)
[2021-04-25] MEDS: Polyethylene Glycol 3350 17 GM PACKET GT (10:34)
[2021-04-25] MEDS: Metoprolol Tartrate 50 MG Tablet GT ×2 (10:34→21:06)
[2021-04-25] MEDS: Aspirin 81 MG TAB.CHEW GT (10:34)
[2021-04-25] MEDS: Levothyroxine 50 MCG Tablet GT (10:34)
[2021-04-25] MEDS: Enoxaparin 150 MG/ML Syringe 130 MG SC (10:35)
[2021-04-25] MEDS: Chlorhexidine 480 ML 15 ML PO ×2 (10:36→21:14)
[2021-04-25] MEDS: CHLORHEXIDINE GLUC 2% CLOTH 1 EACH TOWELETTE TOPICAL (10:39)
[2021-04-25 11:26] LABS: Bedside Glucose 458 mg/dL (70-110)
--- NOTE | 2021-04-25 11:32 | NURSING ---
on cooling blanket
[2021-04-25] MEDS: Insulin Lispro 100 UNIT/ML INSULN.PEN 40 UNIT SC (13:08)
--- NOTE | 2021-04-25 14:11 | PN.HOSP_ITS ---
Subjective Subjective Fever overnight and cooling blanket placed Objective Data Objective Data Vital Signs: Vital Signs Temp Pulse Resp BP Pulse Ox 39.3 C H 115 H 27 H 98/81 H 88 04/25/21 12:00 04/25/21 13:45 04/25/21 13:45 04/25/21 13:00 04/25/21 13:45 Oxygen Flow Rate (L/min) 15 Oxygen Delivery Method Mechanical Ventilator Weight: 134.1 kg Body Mass Index (BMI) 44.8 Intake & Output: Intake and Output for Last 24 Hours 04/23/21 04/24/21 04/25/21 23:59 23:59 23:59 Intake Total 2590 / 3285.2 3122.16 / 3687.16 1862.30 / 1862.30 Output Total 745 / 1195 1975 / 2975 1700 / 1700 Balance 1845 / 2090.2 1147.16 / 712.16 162.30 / 162.30 Lab / Micro Data Result Diagrams: 04/25/21 04:00 04/25/21 04:00 Labs: Laboratory Results - last 24 hr 04/24/21 16:23: POC Glucose 330 H 04/24/21 21:53: POC Glucose 325 H 04/25/21 04:00: WBC 16.2 H, RBC 5.46, Hgb 14.8, Hct 48.5, MCV 88.8, MCH 27.1, MCHC 30.5 L, RDW Std Deviation 51.8 H, RDW Coeff of Renato 15.8 H, Plt Count 408, MPV 11.7, Immature Gran % (Auto) 1.000 H, Neut % (Auto) 92.9 H, Lymph % (Auto) 2.3 L, [place] % (Auto) 3.0, Eos % (Auto) 0.6, Baso % (Auto) 0.2, Absolute Neuts (auto) 15.1 H, Absolute Lymphs (auto) 0.38 L, Nucleated RBC % 0, Differential Comment SCANNED 04/25/21 04:00: Sodium 138, Potassium 5.1, Chloride 101, Carbon Dioxide 31.0, Anion Gap 6, BUN 133 H*, Creatinine 2.76 H, Estim Creat Clear Calc 31.22, Est GFR (MDRD) Af Amer 31 L, Est GFR (MDRD) Non-Af 26 L, BUN/Creatinine Ratio 48.2 H , Glucose 305 H, Calcium 8.7 04/25/21 08:01: POC Glucose 378 H 04/25/21 11:21: POC Glucose 458 H* Micro: Microbiology 04/23/21 04:07 Urine Catheter - Catheter Urine Culture - Final Culture exhibits no growth. 04/23/21 04:10 Sputum, Induced/Lukens Gram Stain - Final 04/23/21 04:10 Sputum, Induced/Lukens Respiratory Culture - Final 04/23/21 04:00 Blood Culture (Wb) - Anticubital Left Blood Culture - Preliminary No growth in 48 hours. 04/23/21 04:05 Blood Culture (Wb) - Anticubital Right Blood Culture - Preliminary No growth in 48 hours. 04/21/21 13:14 Sputum, Induced/Lukens Gram Stain - Final 04/21/21 13:14 Sputum, Induced/Lukens Respiratory Culture - Final 04/14/21 17:20 Blood Culture (Wb) - Anticubital Left Blood Culture - Final No growth in 5 days. 04/14/21 17:15 Blood Culture (Wb) - Arm Left Blood Culture - Final No growth in 5 days. ABG Data ABG results: ABG 04/25/21 05:34 Specimen Type ART Sample Site R Radial pH 7.35 Bicarbonate Actual 30.0 H Total CO2 32 Base Excess 4 H O2 Saturation 90 L O2 % 95 ABG pCO2 55.0 H ABG pO2 64 L Vasquez Test Positive Respiration Rate 12 O2 Delivery Device Adult Vent Vent Mode BiLevel Clinical Comments PH 28 TH 4.5 TL 0.5 Rhythm Strip Rhythm Strip: Sinus Tach Rate: 104 Ectopy: None Physical Exam Const Constitutional Narrative: Intubated and sedated. On cooling blanket Resp normal respiratory effort and no retractions Resp Narrative: Coarse breath sounds bilaterally Cardio regular rate, regular rhythm, S1 normal heart sound and S2 normal heart sound GI normal to inspection, nondistended, normoactive bowel sounds, soft to palpation, non-tender and non-distended Extremity normal to inspection Assessment & Plan Assessment/Plan (1) Acute respiratory failure with hypoxia: (2) COVID-19: PLAN: #Acute hypoxic respiratory failure due to COVID 19 infection * intubated on 100% FiO2 * on decadron * pulmonology and ID on board * on Baricitinib for a 14 day course, as ordered per ID, started on 04/17 and did continue through the . * on breathing treatment with bronchodilators * titrate oxygen to maintain sats >95% * Onset of symptoms on April 05. * Patient is unvaccinated #MAYRA non-oliguric creatinine improving #Elevated D dimer: CTA negative for PE. switched to full-dose enoxaparin given worsening condition. #Hypertension * metoprolol #Diabetes mellitus * metformin on hold. ISS. Accuchecks ACHS #Hypothyroidism; on synthroid #History of ZOEY DVT prophylaxis: anticoagulated Prognosis: Guarded Advance care planning: Spent an additional 30 minutes in which I discussed with patient's significant other and his son. Expressed to them that patient's current status is very tenuous and he is at high risk of decompensation. I told him that he would also be high risk of cardiopulmonary arrest and if he were to undergo cardiopulmonary arrest that he would require CPR and given that his maximize status that CPR would be of low yield and ineffective. I recommended against CPR. They understood and agreed and patient is now DNR Comfort Care arrest. . Charges/Coding Visit Charges Inpatient E&M: 46759 Subs Hosp L2 Procedures Hospitalists Procedures: [id number] Advncd Care Plan 30 Min
--- NOTE | 2021-04-25 16:37 | NURSING ---
patient on cooling blanket Dr bowden aware of temp
[2021-04-25] MEDS: 0.9% Saline Lock 10 ML Syringe IV (16:42)
[2021-04-25 19:56] LABS: Bedside Glucose 394 mg/dL (70-110)
[2021-04-25 20:31] LABS: Base Excess 5 mmol/L (-2 to +2); Bicarbonate 30.3 mmol/L (22-26); Blood Gas Specimen Type ART; FI02 100; Mode BiLevel; O2 Delivery Device Adult Vent; PO2 57 mmHG (75-100); RR 12; SITE R Radial; SO2 87 % (95-99); Total Carbon Dioxide 32 mmol/L; pCO2 54.2 mmHg (35-45); pH 7.36 (7.35-7.45)
[2021-04-25] MEDS: Acetaminophen 650 MG/20 ML UDC GT (21:28)
[2021-04-25 21:41] LABS: Bedside Glucose 427 mg/dL (70-110)
--- NOTE | 2021-04-25 22:38 | NURSING ---
Family at bedside at this time.
[2021-04-26] VITALS (16 sets, daily range): BP systolic 90–125; BP diastolic 58–90; PULSE 0–147; RESP 24–39; TEMP 38.4–39.3; O2SAT 59–80
--- NOTE | 2021-04-26 01:20 | NURSING ---
Dr. Douglas and this RN met with family in family waiting room about how to continue with patient care. Patient's family was asking questions about removal of breathing tube and keeping him comfortable vs. continuing care. The son is the next of kin and decided to continue to care at this time, keeping patient a DNR-CCA, and re-evaluate in the morning.
[2021-04-26 04:47] LABS: Absolute Lymphocyte Count 0.27 X10^3/uL (0.83-4.51); Absolute Neutrophil Count 28.5 X10^3/uL (2.0-7.7); Basophil# 0.08 X10^3/uL; Basophil% 0.3 % (0-1); Hematocrit 51.4 % (40-54); Hemoglobin 15.5 g/dL (13.0-16.5); Lymphocyte # 0.27 X10^3/ul (0.83-4.51); Lymphocyte % 0.9 % (19-41); Mean Corp Hgb Conc 30.2 g/dL (32-36); Mean Corpuscular Hgb 27.4 pg (27.0-32.0); Mean Platelet Vol. 12.4 fl (6.2-12.0); Monocyte# 0.66 X10^3/uL; Monocyte% 2.2 % (0-10); NRBC Flagged by Analyzer 0 % (0-5); Neutrophil # 28.54 X10^3/uL (2.7-7.7); Neutrophil % 95.4 % (47-70); POSITIVE DIFFERENTIAL YES; Platelet Count 588 K/mm3 (150-450); RBC Distribution Width CV 16.2 % (11.6-14.6); RBC Distribution Width SD 54.1 fl (35.1-43.9); Red Blood Count 5.65 M/mm3 (4.6-6.2); White Blood Count 29.9 K/mm3 (4.4-11.0)
[2021-04-26 05:03] LABS: Differential Indicated SCAN CRITERIA MET
[2021-04-26 05:12] LABS: ALB/GLOB Ratio 0.3 RATIO (0.9-2.4); AST(SGOT) 32 U/L (15-37); Alanine Aminotransfer ALT/SGPT 25 U/L (16-61); Albumin, Serum 1.7 g/dL (3.2-5.0); Alkaline Phosphatase 128 U/L (45-117); Anion Gap 11 (5-15); Chloride 96 mmol/L (98-107); Creatinine, Serum 3.19 mg/dL (0.70-1.30); EST Glomerular Filtration Rate 22 mL/min (>60); Est Glom Filt Rate - Afr Amer 26 mL/min (>60); Estimated Creatinine Clearance 27.02 ml/min; Globulin 5.9 g/dL (2.2-4.2); Glucose 574 mg/dL (74-106); Magnesium 3.2 mg/dL (1.6-2.6); Phosphorus 3.8 mg/dL (2.5-4.9); Potassium 5.6 mmol/L (3.5-5.1); Protein, Total 7.6 g/dL (6.4-8.2); Sodium Level 136 mmol/L (136-145)
[2021-04-26] MEDS: Adenosine 6 MG/2 ML Syringe 12 MG IV (05:42)
--- NOTE | 2021-04-26 05:47 | RAD_ITS ---
STUDY: X-RAY CHEST REASON FOR EXAM: Male, 55 years old. CHEST PAIN Patient progress TECHNIQUE: XR Chest 1 View COMPARISON: 04.21.21 FINDINGS: There is no demonstrated pleural abnormality. There is bilateral infiltrate / . There are multiple median sternotomy wires. There is an NGT and ET tube in place. There is no pneumothorax. Normal size heart. Normal mediastinum and ken. Normal visualized pulmonary arteries. There is atherosclerotic calcification of the aortic arch with tortuosity. There are diffuse degenerative changes of the visualized thoracic spine. There is degenerative osteoarthritis of the bilateral shoulders. There is no demonstrated abnormality of the visualized soft tissue structures of the upper abdomen. RAD/Chest 1 View (Portable) IMPRESSION: Pulmonary findings appear worse. Electronically Signed: Virgilio Vasquez MD at 6:17 EDT , Service support ,
[2021-04-26] MEDS: Furosemide 100 MG/10 ML Vial 80 MG IV (05:55)
[2021-04-26] MEDS: 0.9% Saline Lock 10 ML Syringe IV (05:56)
[2021-04-26] MEDS: dilTIAZem 25 MG/5 ML Vial 10 MG IV BOLUS (06:13)
--- NOTE | 2021-04-26 07:26 | PN.CC_ITS ---
Assessment & Plan Assessment/Plan (1) Acute respiratory failure with hypoxia: (2) COVID-19: PLAN: RECOMMENDATIONS: 1. Continue APRV and wean FiO2 as tolerated to maintain saturations at or above 90%. 2. Continue Decadron to complete another 10-day treatment course (05/05/2021) 3. On therapeutic anticoagulation empirically. 4. Attempt Cardizem drip 5. Consider transition to full comfort measures IMPRESSIONS: 1. Acute hypoxemic respiratory failure secondary to ARDS secondary to COVID- 19 pneumonia The patient presented to the hospital with progressive dyspnea and hypoxemia. His symptoms began at the end of March and the patient subsequently tested positive for Covid on April 10. From my perspective, the patient is currently outside of the window to administer remdesivir. Recommend continuing Decadron to complete 10-day treatment course. Patient failed BiPAP therapy and was subsequently intubated on 04/21/2021. Patient will be continued on CARLA inhibitor per infectious disease, but the dose is changed given renal function. We will continue with Decadron therapy for an additional 10 days. Patient curre ntly on maximum APRV and still with marginal saturations. Patient with severe tachycardia. Unclear patient has an element of diastolic congestive heart failure as he has not received Lasix in several days because of his renal function. Attempting rate control, but is not promising. Anticipate patient will pass today even with aggressive measures. 2. Obesity/hypothyroidism/diabetes mellitus/hyperlipidemia Complicates care, management, recovery and prognosis. Continue home medications as indicated. Lantus will be increased. 3. Acute kidney injury Patient was given diuretics in an attempt to avoid intubation. Urine output remains adequate at this time, but BUN and creatinine are elevated. Renal function continues to worsen, but Lasix will be given anyway because of respiratory status. TIME: 33 minutes critical care time spent addressing patient's acute hypoxic respiratory failure, diabetes mellitus, review of all data and collaboration with care team (5:30 AM to 6:30 AM) Subjective Subjective Patient with significant difficulties in oxygenation overnight. Patient has continued to have decent output, but saturations have been steadily falling. Patient has also been tachycardic. Family meeting with hospitalist yesterday yielded that the patient is a DNR Comfort Care arrest. Family at the bedside reiterates this decision this morning. Objective Data Objective Data Attempted adenosine challenge this morning to see if patient was in a flutter. After 12 mg of adenosine, there was only a drop in heart rate by approximately 12 bpm. No pause was noted. Patient was subsequently given Lasix and started on a Cardizem drip, but saturations have continued to fall. Vital Signs: Vital Signs Temp Pulse Resp BP Pulse Ox 38.4 C H 132 H 27 H 90/58 L 59 04/26/21 06:00 04/26/21 07:00 04/26/21 07:00 04/26/21 07:00 04/26/21 07:00 Oxygen Flow Rate (L/min) 15 Oxygen Delivery Method Mechanical Ventilator Weight: 134 kg Body Mass Index (BMI) 44.8 Intake & Output: Intake and Output for Last 24 Hours 04/24/21 04/25/21 04/26/21 23:59 23:59 23:59 Intake Total 3122.16 / 3687.16 2641.13 / 3163.30 1196.84 / 1196.84 Output Total 1975 / 2975 2000 / 2500 625 / 625 Balance 1147.16 / 712.16 641.13 / 663.30 571.84 / 571.84 Lab / Micro Data Result Diagrams: 04/26/21 04:15 04/26/21 04:15 Labs: Laboratory Results - last 24 hr 04/25/21 08:01: POC Glucose 378 H 04/25/21 11:21: POC Glucose 458 H* 04/25/21 16:48: POC Glucose 394 H 04/25/21 21:26: POC Glucose 427 H 04/26/21 04:15: WBC 29.9 H, RBC 5.65, Hgb 15.5, Hct 51.4, MCV 91.0, MCH 27.4, MCHC 30.2 L, RDW Std Deviation 54.1 H, RDW Coeff of Renato 16.2 H, Plt Count 588 H, MPV 12.4 H, Immature Gran % (Auto) 1.200 H, Neut % (Auto) 95.4 H, Lymph % (Auto) 0.9 L, [place] % (Auto) 2.2, Eos % (Auto) 0.0, Baso % (Auto) 0.3, Absolute Neuts (auto) 28.5 H, Absolute Lymphs (auto) 0.27 L, Nucleated RBC % 0 04/26/21 04:15: Sodium 136, Potassium 5.6 H, Chloride 96 L, Carbon Dioxide 29.0, Anion Gap 11, Creatinine 3.19 H, Estim Creat Clear Calc 27.02, Est GFR (MDRD) Af Amer 26 L, Est GFR (MDRD) Non-Af 22 L, Glucose 574 H*, Calcium 9.0, Phosphorus 3.8, Magnesium 3.2 H, Total Bilirubin 0.90, AST 32, ALT 25, Alkaline Phosphatase 128 H, Total Protein 7.6, Albumin 1.7 L, Globulin 5.9 H, Albumin/Globulin Ratio 0.3 L Micro: Microbiology 04/23/21 04:07 Urine Catheter - Catheter Urine Culture - Final Culture exhibits no growth. 04/23/21 04:10 Sputum, Induced/Lukens Gram Stain - Final 04/23/21 04:10 Sputum, Induced/Lukens Respiratory Culture - Final 04/23/21 04:00 Blood Culture (Wb) - Anticubital Left Blood Culture - Preliminary No growth in 48 hours. 04/23/21 04:05 Blood Culture (Wb) - Anticubital Right Blood Culture - Preliminary No growth in 48 hours. 04/21/21 13:14 Sputum, Induced/Lukens Gram Stain - Final 04/21/21 13:14 Sputum, Induced/Lukens Respiratory Culture - Final 04/14/21 17:20 Blood Culture (Wb) - Anticubital Left Blood Culture - Final No growth in 5 days. 04/14/21 17:15 Blood Culture (Wb) - Arm Left Blood Culture - Final No growth in 5 days. ABG Data ABG results: ABG 04/25/21 20:27 Specimen Type ART Sample Site R Radial pH 7.36 Bicarbonate Actual 30.3 H Total CO2 32 Base Excess 5 H O2 Saturation 87 L O2 % 100 ABG pCO2 54.2 H ABG pO2 57 L Vasquez Test N/A Respiration Rate 12 O2 Delivery Device Adult Vent Vent Mode BiLevel Clinical Comments Radiography Diagnostic Testing: Radiology Impression Chest X-Ray 04/26/21 05:47 IMPRESSION: Pulmonary findings appear worse. Electronically Signed: Virgilio Vasquez MD at 6:17 EDT , Service support , Rhythm Strip Rhythm Strip: Sinus Tach Rate: 104 Ectopy: None Physical Exam Const Constitutional Narrative: Cooling blanket in place General Appearance: well developed, lethargic, intubated and patient mechanically ventilated Nutritional Appearance: morbidly obese HEENT normocephalic, head/scalp atraumatic and moist oral mucous membranes Eyes EOMs intact bilaterally and conjunctivae normal Neck supple General: trachea midline Chest inspection of chest normal Chest: symmetrical chest wall rise; Negative for crepitus Resp Resp Narrative: No secretions noted with suctioning Effort and Inspection: tachypneic Auscultation: rales diffuse and diminished lung sounds; Negative for rhonchi or wheezes Cardio regular rate, regular rhythm, S1 normal heart sound, S2 normal heart sound, no murmurs, no rub and no gallops GI normal to inspection, nondistended, normoactive bowel sounds GI Narrative: Significant abdominal obesity Extremity General Extremity: edema; Negative for clubbing or cyanosis Peripheral Pulses: Yes pulses 2+ throughout Skin no rashes or lesions noted Neuro CN's II-XII intact bilaterally and no focal motor deficits Psych cooperative and affect normal Charges/Coding Procedures Hospitalists Procedures: 79237 Critial Care 1st Hr
--- NOTE | 2021-04-26 08:13 | EXP.PCM_ITS ---
Preliminary Cause of Preliminary Cause of Preliminary Cause of : COVID 19 Date of Admission: 04/14/21 Principle Diagnosis Problem List: Active and Suspected Problems (Updated 04/15/21 @ 00:[address] Nila Jeffries, DO) Acute respiratory failure with hypoxia (Acute) COVID-19 (Acute) Hospital Course 55-year-old male who presented on the with shortness of breath. Patient was positive for COVID-19 on April 10 but had symptoms beginning April 05. Patient had been scheduled to have monoclonal antibody infusion but presented to the emergency room with hypoxia. Patient was unvaccinated. CT angiogram of the chest performed on showed diffuse patchy infiltrate consistent with COVID-19. Patient continued to deteriorate despite dexamethasone. Was a started on barcitinib but patient was out of the window for remdesivir. He was started on BiPAP therapy on the . Patient continued to be on high percent FiO2 on the BiPAP and patient was transferred to the ICU. He was intubated on the . Thereon, patient continued to require high oxygenation of 100% and was placed on APRV mode. Patient did have some transient acute kidney injury which did improve. Given the patient's body habitus, he could not be proned. Patient started developing temperatures and developed tachycardia the did not respond with adenosine. Patient saturations continued to decline despite 100s and FiO2. On the , discussion was held with the family and patient segment other and his son and the decision was to make the patient DNR Comfort Care arrest. Patient at 806 on April 26, 2021. Assessment & Plan Assessment/Plan (1) Acute respiratory failure with hypoxia: (2) COVID-19: PLAN: #Acute hypoxic respiratory failure due to COVID 19 infection * intubated on 100% FiO2 * on decadron * pulmonology and ID on board * on Baricitinib for a 14 day course, as ordered per ID, started on 04/17 and did continue through the . * on breathing treatment with bronchodilators * titrate oxygen to maintain sats >95% * Onset of symptoms on April 05. * Patient is unvaccinated * Pt 04/26/2021 at 0806. #MAYRA non-oliguric creatinine improving #Elevated D dimer: CTA negative for PE. switched to full-dose enoxaparin given worsening condition. #Hypertension * metoprolol #Diabetes mellitus * metformin on hold. ISSJohnathon Rahman ACHS #Hypothyroidism; on synthroid #History of ZOEY DVT prophylaxis: anticoagulated Prognosis: Guarded 04/25: Advanced care planning: Spent an additional 30 minutes in which I discussed with patient's significant other and his son. Expressed to them that patient's current status is very tenuous and he is at high risk of decompensation. I told him that he would also be high risk of cardiopulmonary arrest and if he were to undergo cardiopulmonary arrest that he would require CPR and given that his maximize status that CPR would be of low yield and ineffective. I recommended against CPR. They understood and agreed and patient is now DNR Comfort Care arrest. .
--- NOTE | 2021-04-26 09:48 | NURSING ---
This RN in the room at 0755 rhythm change noted, family at bedside, patient lost pulse, confirmed at 0806 with This RN and Ronda hamm RN
== END 2021-04-26 08:06 | DRG 207 ==
LOC: ED 19:00 → PCU 21:57 → ICU 04-21 12:07
PROVIDERS: Internal Medicine Critical Care Medicine; Student in an Organized Health Care Education/Training Program; Admitting Provider Family Medicine; Emergency Provider Emergency Medicine; PCP Family Medicine
DX: U07.1 COVID-19 (principal); J12.82 Pneumonia due to coronavirus disease 2019; J96.01 Acute respiratory failure with hypoxia; N17.9 Acute kidney failure, unspecified; I50.30 Unspecified diastolic (congestive) heart failure; Z68.41 Body mass index [BMI] 40.0-44.9, adult; I11.0 Hypertensive heart disease with heart failure; E11.9 Type 2 diabetes mellitus without complications; E78.5 Hyperlipidemia, unspecified; E03.9 Hypothyroidism, unspecified; E66.01 Morbid (severe) obesity due to excess calories; Z95.5 Presence of coronary angioplasty implant and graft; Z28.3 Underimmunization status; Z66 Do not resuscitate; G47.33 Obstructive sleep apnea (adult) (pediatric); Z95.1 Presence of aortocoronary bypass graft; Z83.3 Family history of diabetes mellitus
CPT/HCPCS: 31500; 31720; 36415; 36600; 71045; 71275; 80048; 80053; 82550; 82803; 82962; 83605; 83735; 83880; 84100; 84145; 84478; 85025; 85379; 87040; 87070; 87086; 87205; 93005; 94002; 94003; 97802; 99251; 99285; Q9967; A4216; G0463; J0153; J1940; J3010